=== PATIENT | male | born 1955 | race Caucasian/White ===

== ENCOUNTER 2017-10-04 06:15 | Inpatient (IN) | payer MEDICARE ==
[~2017-10-04] VITALS: Ht 165.1 cm; Wt 150.2 kg
[2017-10-04] VITALS (7 sets, daily range): BP systolic 133–190; BP diastolic 65–103; PULSE 68–115; RESP 16–20; TEMP 97.3–98.1; O2SAT 92–97
[~2017-10-04 06:15] MED LIST: AMLO10 PO; ATOR40TA16 PO; BUSP15TA PO; FERR325T PO; FURO1TAB62 PO; LISI40TA PO; METF500T PO; MULT-207 PO; TRAM50TA PO; TRAZ100T4 PO
[2017-10-04] MEDS ORDERED: SODIUM CHLORIDE 0.9% FLUSH 10 ML FLUSH IV FLUSH PRN ×2 (07:15→13:45)
[2017-10-04] MEDS ORDERED: ONDANSETRON HCL 4 MG/2 ML VIAL IVP ONE (07:15)
[2017-10-04 07:34] LABS: AUTOMATED NEUTROPHIL # 5.9 TH/MM3 (1.8-7.7); BASOPHIL # 0.1 TH/MM3 (0-0.2); BASOPHIL % 0.9 % (0.0-2.0); EOSINOPHIL # 0.2 TH/MM3 (0-0.4); EOSINOPHIL % 1.8 % (0.0-4.0); HEMATOCRIT 42.3 % (39.0-51.0); HEMOGLOBIN 13.7 GM/DL (13.0-17.0); LYMPH % 26.4 % (9.0-44.0); LYMPHOCYTE # 2.5 TH/MM3 (1.0-4.8); MEAN CELL VOLUME 80.9 FL (80.0-100.0); MEAN CORPUSCULAR HEMOGLOBIN 26.1 PG (27.0-34.0); MEAN CORPUSCULAR HGB CONC 32.3 % (32.0-36.0); MEAN PLATELET VOLUME 8.1 FL (7.0-11.0); MONO % 9.2 % (0.0-8.0); MONOCYTE # 0.9 TH/MM3 (0-0.9); NEUT % 61.7 % (16.0-70.0); PLATELET COUNT 250 TH/MM3 (150-450); RED BLOOD COUNT 5.23 MIL/MM3 (4.50-5.90); RED CELL DISTRIBUTION WIDTH 16.2 % (11.6-17.2); WHITE BLOOD COUNT 9.5 TH/MM3 (4.0-11.0)
--- NOTE | 2017-10-04 07:36 | PD ---
HPI Chief Complaint: Flank/Kidney Pain Time Seen by Provider: 07:07 Travel History International Travel<30 days: No Contact w/Intl Traveler<30days: No Traveled to known affect area: No History of Present Illness HPI This patient complains of pain in the right lower quadrant and right flank. Started at 3 AM. Duration is 4 hours. Severity is moderate. He has some nausea but no vomiting or diarrhea or fever. He is standing up in the room because it is hard for him to get comfortable. He feels restless. Patient has history of cholecystectomy and gastric bypass. No alleviating factors. No exacerbating factors. PFSH Past Medical History Arthritis: Yes Asthma: No Autoimmune Disease: No Blood Disorders: No Anxiety: Yes Depression: Yes Heart Rhythm Problems: No Cancer: Yes (KIDNEY) Cardiovascular Problems: Yes High Cholesterol: Yes Chemotherapy: No Chest Pain: No Congestive Heart Failure: No COPD: No Cerebrovascular Accident: No Diabetes: Yes Patient Takes Glucophage: Yes Diminished Hearing: No Endocrine: No Gastrointestinal Disorders: Yes GERD: Yes Glaucoma: No Genitourinary: Yes (KIDNEY CANCER - LEFT REMOVAL) Headaches: No Hepatitis: No Hiatal Hernia: No Hypertension: Yes Immune Disorder: Yes (RHEUMATOID ARTHRITIS) Implanted Vascular Access Dvce: Yes Kidney Stones: No Musculoskeletal: Yes (OA; AND RHEUMATOID) Neurologic: Yes Psychiatric: Yes Reproductive: No Respiratory: No Migraines: No Myocardial Infarction: No Pneumonia: Yes Radiation Therapy: No Renal Failure: No Seizures: No Sickle Cell Disease: No Sleep Apnea: Yes Thyroid Disease: No Ulcer: No Past Surgical History Abdominal Surgery: Yes (BYPASS-GASTRIC ; 1983 [facility]) AICD: No Appendectomy: No Arteriovenous Shunt: No Cardiac Surgery: No Cholecystectomy: Yes Ear Surgery: No Endocrine Surgery: No Eye Surgery: No Genitourinary Surgery: Yes (LEFT NEPHRECTOMY) Insulin Pump: No Joint Replacement: Yes (LEFT TOTAL KNEE;RIGHT TOTAL KNEE REPLACEMENT) Neurologic Surgery: No Oral Surgery: No Pacemaker: No Thoracic Surgery: No Other Surgery: Yes (left kidney removed,right carpal tunnel-RIGHT) Social History Alcohol Use: No Tobacco Use: No Substance Use: No Allergies-Medications (Allergen,Severity, Reaction): Coded Allergies: daptomycin (Unverified Allergy, Unknown, 10/04/17) Uncoded Allergies: deptamycin (Allergy, Severe, 05/30/11) Reported Meds & Prescriptions Reported Meds & Active Scripts Active Reported Tramadol (Tramadol HCl) 50 Mg Tab 50 Mg PO Q4H PRN Trazodone (Trazodone HCl) 100 Mg Tab 100 Mg PO HS Metformin (Metformin HCl) 500 Mg Tab 500 Mg PO BIDPC With meals Lisinopril 40 Mg Tab 40 Mg PO DAILY Lasix (Furosemide) 20 Mg Tab 20 Mg PO BID Buspirone (Buspirone HCl) 15 Mg Tab 15 Mg PO BID Ferrous Sulfate 325 Mg Tab 325 Mg PO TWICEAWEEK Atorvastatin (Atorvastatin Calcium) 40 Mg Tab 40 Mg PO HS One Daily (Multiple Vitamin) 1 Tab 1 Tab PO DAILY Norvasc (Amlodipine Besylate) 10 Mg Tab 10 Mg PO DAILY Review of Systems General / Constitutional: No: Fever Eyes: No: Visual changes HENT: No: Headaches Cardiovascular: No: Chest Pain or Discomfort Respiratory: No: Shortness of Breath Gastrointestinal: Positive: Nausea, Abdominal Pain Genitourinary: Positive: Flank Pain, No: Dysuria Musculoskeletal: No: Pain Skin: No Rash Neurologic: No: Weakness Psychiatric: No: Depression Endocrine: No: Polydipsia Hematologic/Lymphatic: No: Easy Bruising Physical Exam Narrative GENERAL: Morbidly obese well-developed patient with right flank and right lower quadrant pain. SKIN: Focused skin assessment reveals no rash and nodules. Skin is Warm and dry. HEAD: Atraumatic. Normocephalic. EYES: Pupils equal and round. No scleral icterus. No injection or drainage. ENT: No nasal bleeding or discharge. Mucous membranes pink and moist. NECK: Trachea midline. No JVD. CARDIOVASCULAR: Regular rate and rhythm. No murmur appreciated. RESPIRATORY: No accessory muscle use. Clear to auscultation. Breath sounds equal bilaterally. GASTROINTESTINAL: Abdomen soft, mild right lower quadrant tenderness without rebound or guarding, nondistended. Hepatic and splenic margins not palpable. MUSCULOSKELETAL: Has an ulcer on the back of his right lower leg, chronic per patient. He has erythema and hyperpigmentation stasis in that area. Bilateral knee replacement scars. No clubbing. No cyanosis. NEUROLOGICAL: Awake and alert. No obvious cranial nerve deficits. Motor grossly within normal limits. Normal speech. PSYCHIATRIC: Appropriate mood and affect; insight and judgment normal. Data Data Last Documented VS Vital Signs Date Time Temp Pulse Resp B/P (MAP) Pulse Ox O2 Delivery O2 Flow Rate FiO2 10/04/17 13:06 17 10/04/17 11:13 68 141/92 (108) 96 Room Air 10/04/17 06:18 97.3 Orders Orders Complete Blood Count With Diff (10/04/17 07:07) Comprehensive Metabolic Panel (10/04/17 07:07) Prothrombin Time / Inr (Pt) (10/04/17 07:07) Act Partial Throm Time (Ptt) (10/04/17 07:07) Urinalysis - C+S If Indicated (10/04/17 07:07) Ct Abd/Pel W Iv Contrast(Rout) (10/04/17 07:07) Iv Access Insert/Monitor (10/04/17 07:07) NPO (10/04/17 07:07) Ondansetron Inj (Zofran Inj) (10/04/17 07:15) Sodium Chloride 0.9% Flush (Ns Flush) (10/04/17 07:15) Iodixanol 320 Inj (Rad Ct) (Visipaque 32 (10/04/17 08:37) Morphine Inj (Morphine Inj) (10/04/17 11:15) Labs Laboratory Tests Test 10/04/17 07:19 10/04/17 11:16 White Blood Count 9.5 TH/MM3 Red Blood Count 5.23 MIL/MM3 Hemoglobin 13.7 GM/DL Hematocrit 42.3 % Mean Corpuscular Volume 80.9 FL Mean Corpuscular Hemoglobin 26.1 PG Mean Corpuscular Hemoglobin Concent 32.3 % Red Cell Distribution Width 16.2 % Platelet Count 250 TH/MM3 Mean Platelet Volume 8.1 FL Neutrophils (%) (Auto) 61.7 % Lymphocytes (%) (Auto) 26.4 % Monocytes (%) (Auto) 9.2 % Eosinophils (%) (Auto) 1.8 % Basophils (%) (Auto) 0.9 % Neutrophils # (Auto) 5.9 TH/MM3 Lymphocytes # (Auto) 2.5 TH/MM3 Monocytes # (Auto) 0.9 TH/MM3 Eosinophils # (Auto) 0.2 TH/MM3 Basophils # (Auto) 0.1 TH/MM3 CBC Comment DIFF FINAL Differential Comment Prothrombin Time 9.7 SEC Prothromb Time International Ratio 1.0 RATIO Activated Partial Thromboplast Time 25.5 SEC Blood Urea Nitrogen 19 MG/DL Creatinine 1.28 MG/DL Random Glucose 106 MG/DL Total Protein 7.7 GM/DL Albumin 3.0 GM/DL Calcium Level 8.5 MG/DL Alkaline Phosphatase 145 U/L Aspartate Amino Transf (AST/SGOT) 19 U/L Alanine Aminotransferase (ALT/SGPT) 24 U/L Total Bilirubin 0.5 MG/DL Sodium Level 137 MEQ/L Potassium Level 4.0 MEQ/L Chloride Level 103 MEQ/L Carbon Dioxide Level 27.1 MEQ/L Anion Gap 7 MEQ/L Estimat Glomerular Filtration Rate 57 ML/MIN MDM Medical Decision Making Medical Screen Exam Complete: Yes Emergency Medical Condition: Yes Medical Record Reviewed: Yes Differential Diagnosis Kidney stone, appendicitis, colitis Narrative Course I have reviewed the patient's electronic medical record. Patient was last seen here in 2016. He has been admitted before for sepsis and hyperglycemia I have ordered a abdominal pain workup Gave him IV Zofran Labs are reviewed. He has some renal insufficiency with a GFR of 57 CT scan is reviewed. This patient has only one kidney on the right after left nephrectomy in [address] for renal cell carcinoma. CT shows a 9 mm right-sided stone with moderate hydronephrosis. There is also a enlarging cystic mass in the right kidney. Patient will require admission to attempt to preserve his remaining kidney I discussed with Dr. Narvaez who will be a employment consultant I reviewed with the [facility]ist who will admit Give the patient injection of morphine for symptom relief Diagnosis Primary Impression: Kidney stone on right side Additional Impressions: Solitary right kidney Hydronephrosis due to obstruction of ureter Renal mass, right Admitting Information Admitting Physician Requests: Admit Ted Johns MD Oct 04, 2017 07:36
[2017-10-04 07:45] LABS: PROTHROMBIN TIME - PATIENT 9.7 SEC (9.8-11.6)
[2017-10-04 08:06] LABS: ALT (GPT) 24 U/L (12-78)
[2017-10-04 08:07] LABS: AST (GOT) 19 U/L (15-37); BICARBONATE 27.1 MEQ/L (21.0-32.0); BLOOD UREA NITROGEN 19 MG/DL (7-18); CALCIUM 8.5 MG/DL (8.5-10.1); CHLORIDE 103 MEQ/L (98-107); CREATININE 1.28 MG/DL (0.60-1.30); GLOMERULAR FILTRATION RATE 57 ML/MIN (>89); GLUCOSE,RANDOM 106 MG/DL (74-106); SODIUM (NA) 137 MEQ/L (136-145)
[2017-10-04 08:08] LABS: ALKALINE PHOSPHATASE 145 U/L (45-117); TOTAL BILIRUBIN ADULT 0.5 MG/DL (0.2-1.0); TOTAL PROTEIN 7.7 GM/DL (6.4-8.2)
[2017-10-04] MEDS ORDERED: IODIXANOL 320 MG/ML 10 ML VIAL (for Rad CT) IVCONTRAST ONE (08:37)
--- NOTE | 2017-10-04 09:20 | RADRPT ---
EXAM DATE/TIME: 10/04/2017 08:29 [facility] COMPARISON: CT ABDOMEN & PELVIS W/O CONTRAST, June 16, 2016, 7:57. INDICATIONS : Right lower quadrant and right flank pain. IV CONTRAST: 50 cc Visipaque (iodixanol) IV ORAL CONTRAST: No oral contrast ingested. RADIATION DOSE: 22.52 CTDIvol (mGy) ; Patient body habitus MEDICAL HISTORY : Diabetes mellitus type 2. Renal cell carcinoma. Hypertension. SURGICAL HISTORY : Nephrectomy, left. Gastric bypass. Cholecystectomy. ENCOUNTER: Initial ACUITY: 1 day PAIN SCALE: 7/10 LOCATION: Right lower quadrant TECHNIQUE: Volumetric scanning of the abdomen and pelvis was performed. Using automated exposure control and ad justment of the mA and/or kV according to patient size, radiation dose was kept as low as reasonably achievable to obtain optimal diagnostic quality images. DICOM format image data is available electro nically for review and comparison. FINDINGS: LOWER LUNGS: There is a new 7 mm solid subpleural nodule in the left lung base. LIVER: Homogeneous density without lesion. There is no dilation of the biliary tree. Gallbladder is surgica lly absent. SPLEEN: Normal size without lesion. PANCREAS: Within normal limits. KIDNEYS: Patient status post left nephrectomy. No evidence for mass in the left nephrectomy bed. There is a 9 mm calcified calculus in the right UPJ with associated mild to moderate right-sided hydronephrosis wi th mild perinephric stranding. There is a second 4 mm calyceal calculus in the inferior pole of the r ight kidney. Previously described now measuring 6.9 x 5.9 cm in comparison to 6.0 x 4.8 cm. The cyst also demonstrates increased density, now indeterminate. A second lesion previously described arising from the superior pole of the right kidney appears smaller on current exam measuring 2.9 x 2.5 cm in comparison to 3.1 x 3.5 cm on previous exam. Again, this lesion demonstrates indeterminate density. O n coronal reconstructions there appears to be a fat plane this lesion from the superior po le the right kidney suggesting that this lesion is extra renal. There is also a subtle contour abnorm ality in the inferior pole the right kidney with which may reflect an isoechoic exophytic lesion. Sub centimeter hypodense cystic lesion in the inferior pole is too small to fully characterize. ADRENAL GLANDS: 1.4 cm nodule in the left adrenal gland unchanged from prior exam with low-density consistent with sm all adenoma. VASCULAR: There is no aortic aneurysm. BOWEL/MESENTERY: Position of features of gastric sleeve. The small bowel, and colon demonstrate no acute abnormality. Appendix is visualized and normal in appearance. There is no free intraperitoneal air or fluid. ABDOMINAL WALL: There is a 1.8 x 16.8 cm crescentic hypodense anterior abdominal wall collection on the left. This co rresponds to region of prior apparent soft tissue hemorrhage and likely reflects evolving hematoma. RETROPERITONEUM: Scattered small retroperitoneal nodes measuring up to 1.4 cm distally are stable from prior exam. The re are also bilateral iliac chain nodes predominantly subcentimeter in size which are unchanged from prior exam. BLADDER: Completely decompressed. No significant radiopaque bladder calculi. REPRODUCTIVE: Within normal limits. INGUINAL: There is no lymphadenopathy or hernia. MUSCULOSKELETAL: Degenerative spondylosis of the lumbar spine. No significant focal lytic or blastic bony lesions. CONCLUSION: 1. Status post left nephrectomy. 2. 9 mm calcified calculus in the right UPJ with associated mild to moderate right-sided hydronephros is. Additional 3 mm calyceal calculus in the inferior pole of the right kidney. 3. New 7 mm solid subpleural nodule in the left lung base. Recommend followup examination in 3 months document stability/resolution given apparent history of renal cell carcinoma. 4. Enlarging cystic lesion in the mid right kidney which is now indeterminate density (previously fl uid in density). This may reflect sequela of current obstructive uropathy although an enlarging cysti c mass cannot be entirely excluded. Although a followup scan may be performed to determine if this le pa has returned to baseline, consider outpatient MRI exam given additional findings in the right ki dney. 5. Subtle contour abnormality in the inferior pole of the right kidney which cannot be further evalua roman given lack of IV contrast. Although this likely reflects a simple contour abnormality, an isodens e exophytic lesion cannot be entirely excluded. If this has not been previously evaluated, consider f urther outpatient evaluation with MRI exam. 6. Previously described indeterminate lesion near the superior pole of the right kidney is smaller in size and appears to be separate from the right kidney on coronal reconstructions. This can be furthe r evaluated with MRI examination if performed for evaluation of the additional abnormalities in the r ight kidney. 7. Stable nonspecific small retroperitoneal and bilateral iliac lymph nodes. 8. Probable evolving hematoma in the left anterior abdominal wall. 9. Additional stable ancillary findings, as above. Ricci Deal MD on October 04, 2017 at 8:53 Board Certified Radiologist. This report was verified electronically.
[2017-10-04] MEDS ORDERED: MORPHINE SULFATE 4 MG/ML INJ IV PUSH ONE (11:15)
[2017-10-04] MEDS ORDERED: ONDANSETRON HCL 4 MG/2 ML VIAL IVP PRN (13:45)
[2017-10-04] MEDS ORDERED: ACETAMINOPHEN 325 MG TAB PO PRN (13:45)
[2017-10-04] MEDS ORDERED: NALOXONE HCL 0.4 MG/ML AMP IV PUSH PRN (13:45)
[2017-10-04] MEDS ORDERED: MAGNESIUM HYDROXIDE SUSP 30 ML CUP PO PRN (13:45)
--- NOTE | 2017-10-04 14:02 | HHI.HP ---
HPI Service [facility] Hospitalists Primary Care Physician Pedro Bautista M.D. Admission Diagnosis renal calculus R UPJ and right hydronephrosis Chief Complaint: flank pain Travel History International Travel<30 Days: No Contact w/Intl Traveler <30 Da: No Traveled to Known Affected Are: No History of Present Illness This is a 62 year old male patient with a past medical history which includes HTN, hyperlipidemia, DM, depression/anxiety, GERD, BPH, Left nephrectomy 1994 due to renal Ca. Patient presents to the ER today due to severe right lower quadrant and right flank which started at 3 AM and continues. Patient also had associated nausea but no vomiting. Patient is restless standing up pacing about the room due to his discomfort. Patient reports that he has never had a kidney stone in the past. Patient has also been unable to pass urine since this morning. Patient denies chest pain, shortness of breath, vomiting, diarrhea fevers or chills. CT abdomen/pelvic reveals: left nephrectomy. 9 mm calcified calculus in the Right UPJ with associated mild to moderate right sided hydronephrosis. 3 mm calyceal calculus in the inferior pole of the right kidney. New 7 mm solid subpleural nodule in the left lung base. Recommend repeat exam in 3 month. Enlarging cystic lesion in the mid right kidney. Recommend follow up scan/ outpatient MRI. Subtle contour abnormality in the inferior pole of the right kidney. Probable evolving hematoma left anterior abd wall. See full report for further details. Review of Systems Constitutional: DENIES: Fatigue, Fever, Chills Eyes: DENIES: Blurred vision, Diplopia, Photosensitivity Respiratory: DENIES: Cough, Sputum production, Shortness of breath Cardiovascular: DENIES: Chest pain, Palpitations, Dyspnea on Exertion Gastrointestinal: COMPLAINS OF: Abdominal pain (right lower quadrant), Nausea, DENIES: Constipation, Diarrhea, Vomiting Musculoskeletal: COMPLAINS OF: Back pain (right flank pain) Neurologic: DENIES: Headache, Localized weakness, Speech Problems Psychiatric: DENIES: Anxiety, Confusion, Depression Past Family Social History Past Medical History HTN, hyperlipidemia, DM, depression/anxiety, GERD, BPH, Left nephrectomy 1994 due to renal Ca Past Surgical History Left nephrectomy 1994 due to renal Ca right knee replacement x 5 [place] gastric bypass surgery mid cholecystectomy back surgery Reported Medications Zantac (Ranitidine HCl) 150 Mg Tab 150 Mg PO DAILY Restoril (Temazepam) 7.5 Mg Cap 7.5 Mg PO HS PRN Triamterene-Hydrochlorothiazide 37.5-25 Mg Cap 1 Cap PO DAILY Sertraline (Sertraline HCl) 50 Mg Tab 50 Mg PO DAILY Trazodone (Trazodone HCl) 100 Mg Tab 100 Mg PO HS Metformin (Metformin HCl) 500 Mg Tab 500 Mg PO BIDPC With meals Lisinopril 40 Mg Tab 40 Mg PO DAILY Buspirone (Buspirone HCl) 15 Mg Tab 15 Mg PO BID Ferrous Sulfate 325 Mg Tab 325 Mg PO TWICEAWEEK Atorvastatin (Atorvastatin Calcium) 40 Mg Tab 40 Mg PO HS One Daily (Multiple Vitamin) 1 Tab 1 Tab PO DAILY Norvasc (Amlodipine Besylate) 10 Mg Tab 10 Mg PO DAILY Allergies: Coded Allergies: daptomycin (Unverified Allergy, Unknown, 10/04/17) Uncoded Allergies: deptamycin (Allergy, Severe, 05/30/11) Family History Family medical history unknown patient is adopted Social History former tobacco user 1.5 PPD x 30 + years quit in 1994 Physical Exam Vital Signs Vital Signs Date Time Temp Pulse Resp B/P (MAP) Pulse Ox O2 Delivery O2 Flow Rate FiO2 10/04/17 13:06 17 10/04/17 11:13 68 17 141/92 (108) 96 Room Air 10/04/17 06:18 97.3 74 18 133/67 (89) 97 Physical Exam GENERAL: This is an obese, well-developed patient, appears uncomfortable pacing about room SKIN: posterior right ankle chronic ulcerations HEAD: Atraumatic. Normocephalic. No temporal or scalp tenderness. EYES: Extraocular motions intact. No scleral icterus. No injection or drainage. CARDIOVASCULAR: Regular rate and rhythm RESPIRATORY: Clear to auscultation. Breath sounds equal bilaterally. GASTROINTESTINAL: Abdomen soft, non-tender, nondistended. GENITOURINARY: right flank pain very tender MUSCULOSKELETAL: Extremities without clubbing, cyanosis, or edema. No joint tenderness, effusion, or edema noted. No calf tenderness. Negative Homans sign bilaterally. NEUROLOGICAL: Awake and alert. No focal deficits. Motor and sensory grossly within normal limits. Five out of 5 muscle strength in all muscle groups. Normal speech. Laboratory Laboratory Tests Test 10/04/17 07:19 4/3/18 11:16 White Blood Count 9.5 Red Blood Count 5.23 Hemoglobin 13.7 Hematocrit 42.3 Mean Corpuscular Volume 80.9 Mean Corpuscular Hemoglobin 26.1 Mean Corpuscular Hemoglobin Concent 32.3 Red Cell Distribution Width 16.2 Platelet Count 250 Mean Platelet Volume 8.1 Neutrophils (%) (Auto) 61.7 Lymphocytes (%) (Auto) 26.4 Monocytes (%) (Auto) 9.2 Eosinophils (%) (Auto) 1.8 Basophils (%) (Auto) 0.9 Neutrophils # (Auto) 5.9 Lymphocytes # (Auto) 2.5 Monocytes # (Auto) 0.9 Eosinophils # (Auto) 0.2 Basophils # (Auto) 0.1 CBC Comment DIFF FINAL Differential Comment Prothrombin Time 9.7 Prothromb Time International Ratio 1.0 Activated Partial Thromboplast Time 25.5 Blood Urea Nitrogen 19 Creatinine 1.28 Random Glucose 106 Total Protein 7.7 Albumin 3.0 Calcium Level 8.5 Alkaline Phosphatase 145 Aspartate Amino Transf (AST/SGOT) 19 Alanine Aminotransferase (ALT/SGPT) 24 Total Bilirubin 0.5 Sodium Level 137 Potassium Level 4.0 Chloride Level 103 Carbon Dioxide Level 27.1 Anion Gap 7 Estimat Glomerular Filtration Rate 57 Result Diagram: 10/04/17 0719 10/04/17 0719 Imaging Last Impressions Abdomen/Pelvis CT 10/04/1707 Signed Impressions: Service Date/Time: Wednesday, October 04, 2017 08:29 - CONCLUSION: 1. Status post left nephrectomy. 2. 9 mm calcified calculus in the right UPJ with associated mild to moderate right-sided hydronephrosis. Additional 3 mm calyceal calculus in the inferior pole of the right kidney. 3. New 7 mm solid subpleural nodule in the left lung base. Recommend followup examination in 3 months document stability/resolution given apparent history of renal cell carcinoma. 4. Enlarging cystic lesion in the mid right kidney which is now indeterminate density (previously fluid in density). This may reflect sequela of current obstructive uropathy although an enlarging cystic mass cannot be entirely excluded. Although a followup scan may be performed to determine if this lesion has returned to baseline, consider outpatient MRI exam given additional findings in the right kidney. 5. Subtle contour abnormality in the inferior pole of the right kidney which cannot be further evaluated given lack of IV contrast. Although this likely reflects a simple contour abnormality, an isodense exophytic lesion cannot be entirely excluded. If this has not been previously evaluated, consider further outpatient evaluation with MRI exam. 6. Previously described indeterminate lesion near the superior pole of the right kidney is smaller in size and appears to be separate from the right kidney on coronal reconstructions. This can be further evaluated with MRI examination if performed for evaluation of the additional abnormalities in the right kidney. 7. Stable nonspecific small retroperitoneal and bilateral iliac lymph nodes. 8. Probable evolving hematoma in the left anterior abdominal wall. 9. Additional stable ancillary findings, as above. MD Jose Leonard VTE Risk Assessment Caprini VTE Risk Assessment: No/Low Risk (score <= 1) Caprini Risk Assessment Model Point Value = 1 Point Value = 2 Point Value = 3 Point Value = 5 Age 41-60 Minor surgery BMI > 25 kg/m2 Swollen legs Varicose veins or History of unexplained or recurrent spontaneous Oral contraceptives or hormone replacement Sepsis (< 1 month) Serious lung disease, including pneumonia (< 1 month) Abnormal pulmonary function Acute myocardial infarction Congestive heart failure (< 1 month) History of inflammatory bowel disease Medical patient at bed rest Age 61-74 Arthroscopic surgery Major open surgery (> 45 min) Laparoscopic surgery (> 45 min) Malignancy Confined to bed (> 72 hours) Immobilizing plaster cast Central venous access Age >= 75 History of VTE Family history of VTE Factor V Leiden Prothrombin [id number] Lupus anticoagulant Anticardiolipin antibodies Elevated serum homocysteine Heparin-induced thrombocytopenia Other congenital or acquired thrombophilia Stroke (< 1 month) Elective arthroplasty Hip, pelvis, or leg fracture Acute spinal cord injury (< 1 month) Prophylaxis Regimen Total Risk Factor Score Risk Level Prophylaxis Regimen 0-1 Low Early ambulation 2 Moderate Order ONE of the following: *Sequential Compression Device (SCD) *Heparin 5000 units SQ BID 3-4 Higher Order ONE of the following medications: *Heparin 5000 units SQ TID *Enoxaparin/Lovenox 40 mg SQ daily (WT < 150 kg, CrCl > 30 mL/min) *Enoxaparin/Lovenox 30 mg SQ daily (WT < 150 kg, CrCl > 10-29 mL/min) *Enoxaparin/Lovenox 30 mg SQ BID (WT < 150 kg, CrCl > 30 mL/min) AND/OR *Sequential Compression Device (SCD) 5 or more Highest Order ONE of the following medications: *Heparin 5000 units SQ TID (Preferred with Epidurals) *Enoxaparin/Lovenox 40 mg SQ daily (WT < 150 kg, CrCl > 30 mL/min) *Enoxaparin/Lovenox 30 mg SQ daily (WT < 150 kg, CrCl > 10-29 mL/min) *Enoxaparin/Lovenox 30 mg SQ BID (WT < 150 kg, CrCl > 30 mL/min) AND *Sequential Compression Device (SCD) Assessment and Plan Problem List: (1) Renal calculus ICD Codes: N20.0 - Calculus of kidney Plan: Renal calculus hydronephrosis HTN, hyperlipidemia, DM, depression/anxiety, GERD, BPH, Left nephrectomy 1994 due to renal Ca. Patient presents to the ER today due to severe right lower quadrant and right flank which started at [address] abdomen/pelvic reveals: left nephrectomy. 9 mm calcified calculus in the Right UPJ with associated mild to moderate right sided hydronephrosis. 3 mm calyceal calculus in the inferior pole of the right kidney. New 7 mm solid subpleural nodule in the left lung base. Recommend repeat exam in 3 month. Enlarging cystic lesion in the mid right kidney. Recommend follow up scan/ outpatient MRI. Subtle contour abnormality in the inferior pole of the right kidney. Probable evolving hematoma left anterior abd wall. See full report for further details. Dilaudid for pain Flomax 0.4 mg PO Q12H consult placed to Urology, patient evaluated by Dr. Narvaez surgical intervention planned for clear liquid diet NPO after midnight incase OR opens IVF Mosley catheter repeat labs in AM HTN Continue patient's home lisinopril 40 mg PO daily and Norvasc 10 mg daily Hyperlipidemia Continue patient's home atorvastatin Diabetes mellitus hold metformin accu checks ACHS with SSI coverage Anxiety/depression Continue patient's home sertraline 50 mg PO daily and Buspirone 15 mg daily DVT prophylaxis with SCDs (2) Hydronephrosis due to obstruction of ureter ICD Codes: N13.2 - Hydronephrosis with renal and ureteral calculous obstruction Status: Acute (3) Hyperlipidemia ICD Codes: E78.5 - Hyperlipidemia, unspecified Status: Chronic (4) HTN (hypertension) ICD Codes: I10 - Essential (primary) hypertension Status: Chronic (5) Diabetes mellitus ICD Codes: E11.9 - Type 2 diabetes mellitus without complications Assessment and Plan Patient examined. Assessment and plan formulated with Shauna Robles PA-C. I agree with the above. right nephrolithiasis 9mm with hydro and severe pain hx left nephrectomy due to RCC spoke with Dr Brice zhang. no OR time until . cont ivf. pain control. flomax. monitor u.o. avoid nsaids. Physician Certification 2 Midnight Certification Type: Admission for Inpatient Services Order for Inpatient Services The services are ordered in accordance with Medicare regulations or non- Medicare payer requirements, as applicable. In the case of services not specified as inpatient-only, they are appropriately provided as inpatient services in accordance with the 2-midnight benchmark. Estimated LOS (days): 3 days is the estimated time the patient will need to remain in the hospital, assuming treatment plan goals are met and no additional complications. Post-Hospital Plan: Home Shauna Robles Oct 04, 2017 14:02 Fredi Crawford MD Oct 04, 2017 16:28
[2017-10-04] MEDS ORDERED: SERT-132 PO (14:09)
[2017-10-04] MEDS ORDERED: TRIA37.53 PO (14:10)
[2017-10-04] MEDS ORDERED: TEMA7.5C9 PO (14:11)
[2017-10-04] MEDS ORDERED: ZANT150T2 PO (14:12)
[2017-10-04] MEDS ORDERED: GLUCAGON 1 MG/ML VIAL OTHER PRN (14:15)
[2017-10-04] MEDS ORDERED: DEXTROSE 50% IN WATER 50 ML VIAL(D50) IV PUSH PRN (14:15)
[2017-10-04] MEDS: SODIUM CHLOR 0.9% 1000 ML INJ 1,000 ML IV SCH (14:32)
[2017-10-04] MEDS ORDERED: HYDROmorphone HCL PF 2 MG/ML VIAL IV PUSH ONE (15:45)
[2017-10-04] MEDS ORDERED: cloNIDine HCL 0.1 MG TAB PO PRN ×2 (16:15→20:00)
[2017-10-04] MEDS: TAMSULOSIN HCL 0.4 MG CAP PO SCH ×2 (16:23→20:51)
[2017-10-04] MEDS: INSULIN ASPART SUPPLEMENTAL SCALE SQ SCH ×2 (17:00→20:50)
--- NOTE | 2017-10-04 17:16 | PD.CONS ---
HPI Service Urology Consult Requested By Dr. Johns Reason for Consult Right ureteral calculus Primary Care Physician Pedro Bautista M.D. Diagnosis: (1) Renal calculus ICD Code: N20.0 - Calculus of kidney (2) Hydronephrosis due to obstruction of ureter ICD Code: N13.2 - Hydronephrosis with renal and ureteral calculous obstruction (3) Hyperlipidemia ICD Code: E78.5 - Hyperlipidemia, unspecified (4) HTN (hypertension) ICD Code: I10 - Essential (primary) hypertension (5) Diabetes mellitus ICD Code: E11.9 - Type 2 diabetes mellitus without complications History of Present Illness 62-year-old gentleman with history solitary right kidney who presented to emergency room with acute onset of right flank pain. Workup included a CT scan of the abdomen and pelvis that demonstrated a 9 mm right occipital ureteral calculus causing moderate right hydronephrosis. Patient is status post a left radical nephrectomy greater than 20 years ago for cancer. He reports not seeing a urologist for quite some time. He denies a prior history of renal calculi. He denies gross hematuria or dysuria. Patient has been afebrile. Review of Systems Constitutional: DENIES: Fever, Chills Cardiovascular: DENIES: Chest pain Gastrointestinal: COMPLAINS OF: Abdominal pain (Right side) Genitourinary: DENIES: Hematuria Musculoskeletal: COMPLAINS OF: Back pain (Right flank) Except as stated in HPI: all other systems reviewed are Neg Past Family Social History Past Medical History Obesity Anxiety Renal cancer Diabetes mellitus Rheumatoid arthritis Obstructive sleep apnea History pneumonia Past Surgical History Status post left radical nephrectomy for CA Status post gastric bypass surgery Status post cholecystectomy Status post left and right total knee surgery Reported Medications Refer to EMR Allergies: Coded Allergies: daptomycin (Unverified Allergy, Unknown, 10/04/17) Uncoded Allergies: deptamycin (Allergy, Severe, 05/30/11) Active Ordered Medications Refer to EMR Family History Reviewed and noncontributory Social History Denies tobacco, alcohol intravenous drug abuse Physical Exam Vital Signs Date Time Temp Pulse Resp B/P (MAP) Pulse Ox O2 Delivery O2 Flow Rate FiO2 10/04/17 17:04 90 18 190/91 (124) 94 Nasal Cannula 2.00 10/04/17 15:32 90 18 190/85 (120) 94 Room Air 10/04/17 13:06 17 10/04/17 11:13 68 17 141/92 (108) 96 Room Air 10/04/17 06:18 97.3 74 18 133/67 (89) 97 Physical Exam GENERAL: This is a well-nourished, well-developed patient, in no apparent distress. SKIN: No rashes, ecchymoses or lesions. Cool and dry. HEAD: Atraumatic. Normocephalic. No temporal or scalp tenderness. EYES: Pupils equal round and reactive. Extraocular motions intact. No scleral icterus. No injection or drainage. ENT: Nose without bleeding, purulent drainage or septal hematoma. Throat without erythema, tonsillar hypertrophy or exudate. Uvula midline. Airway patent. NECK: Trachea midline. No JVD or lymphadenopathy. Supple, nontender, no meningeal signs. CARDIOVASCULAR: Regular rate and rhythm without murmurs, gallops, or rubs. RESPIRATORY: Clear to auscultation. Breath sounds equal bilaterally. No wheezes , rales, or rhonchi. GASTROINTESTINAL: Abdomen soft, non-tender, nondistended. No hepato-splenomegaly , or palpable masses. No guarding. GENITOURINARY: Bladder not distended, no CVA tenderness MUSCULOSKELETAL: Extremities without clubbing, cyanosis, or edema. No joint tenderness, effusion, or edema noted. No calf tenderness. Negative Homans sign bilaterally. NEUROLOGICAL: Awake and alert. Cranial nerves II through XII intact. Motor and sensory grossly within normal limits. Five out of 5 muscle strength in all muscle groups. Normal speech. Lab results reviewed: Yes Laboratory Tests Test 10/04/17 07:19 10/04/17 11:16 White Blood Count 9.5 Red Blood Count 5.23 Hemoglobin 13.7 Hematocrit 42.3 Mean Corpuscular Volume 80.9 Mean Corpuscular Hemoglobin 26.1 Mean Corpuscular Hemoglobin Concent 32.3 Red Cell Distribution Width 16.2 Platelet Count 250 Mean Platelet Volume 8.1 Neutrophils (%) (Auto) 61.7 Lymphocytes (%) (Auto) 26.4 Monocytes (%) (Auto) 9.2 Eosinophils (%) (Auto) 1.8 Basophils (%) (Auto) 0.9 Neutrophils # (Auto) 5.9 Lymphocytes # (Auto) 2.5 Monocytes # (Auto) 0.9 Eosinophils # (Auto) 0.2 Basophils # (Auto) 0.1 CBC Comment DIFF FINAL Differential Comment Prothrombin Time 9.7 Prothromb Time International Ratio 1.0 Activated Partial Thromboplast Time 25.5 Blood Urea Nitrogen 19 Creatinine 1.28 Random Glucose 106 Total Protein 7.7 Albumin 3.0 Calcium Level 8.5 Alkaline Phosphatase 145 Aspartate Amino Transf (AST/SGOT) 19 Alanine Aminotransferase (ALT/SGPT) 24 Total Bilirubin 0.5 Sodium Level 137 Potassium Level 4.0 Chloride Level 103 Carbon Dioxide Level 27.1 Anion Gap 7 Estimat Glomerular Filtration Rate 57 Result Diagram: 10/04/17 0719 10/04/1719 Personally reviewed images: Yes Imaging Last Impressions Abdomen/Pelvis CT 10/04/17706 Signed Impressions: Service Date/Time: Wednesday, October 04, 2017 08:29 - CONCLUSION: 1. Status post left nephrectomy. 2. 9 mm calcified calculus in the right UPJ with associated mild to moderate right-sided hydronephrosis. Additional 3 mm calyceal calculus in the inferior pole of the right kidney. 3. New 7 mm solid subpleural nodule in the left lung base. Recommend followup examination in 3 months document stability/resolution given apparent history of renal cell carcinoma. 4. Enlarging cystic lesion in the mid right kidney which is now indeterminate density (previously fluid in density). This may reflect sequela of current obstructive uropathy although an enlarging cystic mass cannot be entirely excluded. Although a followup scan may be performed to determine if this lesion has returned to baseline, consider outpatient MRI exam given additional findings in the right kidney. 5. Subtle contour abnormality in the inferior pole of the right kidney which cannot be further evaluated given lack of IV contrast. Although this likely reflects a simple contour abnormality, an isodense exophytic lesion cannot be entirely excluded. If this has not been previously evaluated, consider further outpatient evaluation with MRI exam. 6. Previously described indeterminate lesion near the superior pole of the right kidney is smaller in size and appears to be separate from the right kidney on coronal reconstructions. This can be further evaluated with MRI examination if performed for evaluation of the additional abnormalities in the right kidney. 7. Stable nonspecific small retroperitoneal and bilateral iliac lymph nodes. 8. Probable evolving hematoma in the left anterior abdominal wall. 9. Additional stable ancillary findings, as above. Ricci Deal MD Assessment and Plan Assessment and Plan UROLOGIC IMPRESSION: 1. Obstructing 9mm right ureteropelvic junction calculus 2. Solitary right kidney 3. 3mm right renal calculus 4. Right renal cyst PLAN: 1. Cysto, right retrograde pyelogram and right ureteral stent insertion tomorrow or Thurs 2. Will eventually require outpatient right ESWL 3. Outpatient MRI of the abdomen to better characterize right renal cyst Oscar Narvaez MD Oct 04, 2017 17:16
[2017-10-04] MEDS: busPIRone HCL 5 MG TAB PO SCH (20:51)
[2017-10-04] MEDS: DOCUSATE SODIUM 50 MG/SENNA 8.6 MG TAB PO SCH (20:51)
[2017-10-04] MEDS: SODIUM CHLORIDE 0.9% FLUSH 10 ML FLUSH IV FLUSH SCH (20:52)
[2017-10-04] MEDS: ATORVASTATIN 40 MG TAB PO SCH (20:52)
[2017-10-04] MEDS ORDERED: TEMAZEPAM 7.5 MG CAP PO PRN (21:00)
[2017-10-05] VITALS (7 sets, daily range): BP systolic 110–158; BP diastolic 58–86; PULSE 68–100; RESP 16–22; TEMP 97.4–98; O2SAT 92–96
[2017-10-05] MEDS: SODIUM CHLOR 0.9% 1000 ML INJ 1,000 ML IV SCH ×2 (01:21→22:00)
[2017-10-05 02:17] LABS: BILIRUBIN, URINE NEG (NEG); BLOOD, URINE LARGE (NEG); GLUCOSE,URINE TRACE mg/dL (NEG); KETONE, URINE NEG (NEG); NITRITE,URINE NEG (NEG); PH, URINE 5.5 (5.0-8.5); SQUAMOUS EPITHELIAL CELL URINE 3 /hpf (0-5); URINE LEUKOCYTE ESTERASE TRACE (NEG); WHITE BLOOD CELL CLUMPS MANY
[2017-10-05 02:23] LABS: URINE COLOR BROWN (YELLW/STRAW)
[2017-10-05 02:24] LABS: BACTERIA, URINE FEW /hpf
[2017-10-05 07:03] LABS: AUTOMATED NEUTROPHIL # 11.3 TH/MM3 (1.8-7.7); BASOPHIL # 0.1 TH/MM3 (0-0.2); BASOPHIL % 0.6 % (0.0-2.0); EOSINOPHIL % 0.3 % (0.0-4.0); HEMATOCRIT 40.6 % (39.0-51.0); HEMOGLOBIN 13.1 GM/DL (13.0-17.0); LYMPH % 8.3 % (9.0-44.0); LYMPHOCYTE # 1.2 TH/MM3 (1.0-4.8); MEAN CELL VOLUME 81.7 FL (80.0-100.0); MEAN CORPUSCULAR HEMOGLOBIN 26.3 PG (27.0-34.0); MEAN CORPUSCULAR HGB CONC 32.2 % (32.0-36.0); MEAN PLATELET VOLUME 8.3 FL (7.0-11.0); MONO % 10.5 % (0.0-8.0); MONOCYTE # 1.5 TH/MM3 (0-0.9); NEUT % 80.3 % (16.0-70.0); PLATELET COUNT 210 TH/MM3 (150-450); RED BLOOD COUNT 4.97 MIL/MM3 (4.50-5.90); RED CELL DISTRIBUTION WIDTH 16.1 % (11.6-17.2); WHITE BLOOD COUNT 14.1 TH/MM3 (4.0-11.0)
[2017-10-05 07:34] LABS: BICARBONATE 27.1 MEQ/L (21.0-32.0); CALCIUM 8.3 MG/DL (8.5-10.1); CREATININE 3.59 MG/DL (0.60-1.30)
[2017-10-05] MEDS: INSULIN ASPART SUPPLEMENTAL SCALE SQ SCH ×4 (08:21→21:00)
--- NOTE | 2017-10-05 08:43 | HHI.PR ---
Subjective Remarks Pt reports that he is still having abdominal pain but its rated at about a 4-5/ 10 He has only had out about 80mL of urine overnight Afebrile Pt is currently on 3-4L of supplemental O2 Denies any hx of COPD or asthma. He does have DL and does not use CPAP at home Objective Vitals Vital Signs Date Time Temp Pulse Resp B/P (MAP) Pulse Ox O2 Delivery O2 Flow Rate FiO2 10/05/17 07:33 97.9 90 18 136/79 (98) 95 10/05/17 04:30 97.4 68 16 158/86 (110) 92 10/05/17 00:07 97.9 79 16 120/67 (84) 94 10/04/17 20:43 97.7 68 16 142/96 (111) 92 10/04/17 18:35 98.1 115 20 179/103 (128) 92 10/04/17 17:43 10/04/17 17:28 92 17 149/65 (93) 95 Nasal Cannula 2.00 10/04/17 17:04 90 18 190/91 (124) 94 Nasal Cannula 2.00 10/04/17 15:32 90 18 190/85 (120) 94 Room Air 10/04/17 13:06 17 10/04/17 11:13 68 17 141/92 (108) 96 Room Air Result Diagram: 10/05/17 0608 10/05/17 0608 Other Results Laboratory Tests Test 10/04/17 07:19 10/04/17 11:16 10/05/17 06:08 White Blood Count 9.5 TH/MM3 14.1 TH/MM3 Red Blood Count 5.23 MIL/MM3 4.97 MIL/MM3 Hemoglobin 13.7 GM/DL 13.1 GM/DL Hematocrit 42.3 % 40.6 % Mean Corpuscular Volume 80.9 FL 81.7 FL Mean Corpuscular Hemoglobin 26.1 PG 26.3 PG Mean Corpuscular Hemoglobin Concent 32.3 % 32.2 % Red Cell Distribution Width 16.2 % 16.1 % Platelet Count 250 TH/MM3 210 TH/MM3 Mean Platelet Volume 8.1 FL 8.3 FL Neutrophils (%) (Auto) 61.7 % 80.3 % Lymphocytes (%) (Auto) 26.4 % 8.3 % Monocytes (%) (Auto) 9.2 % 10.5 % Eosinophils (%) (Auto) 1.8 % 0.3 % Basophils (%) (Auto) 0.9 % 0.6 % Neutrophils # (Auto) 5.9 TH/MM3 11.3 TH/MM3 Lymphocytes # (Auto) 2.5 TH/MM3 1.2 TH/MM3 Monocytes # (Auto) 0.9 TH/MM3 1.5 TH/MM3 Eosinophils # (Auto) 0.2 TH/MM3 0.0 TH/MM3 Basophils # (Auto) 0.1 TH/MM3 0.1 TH/MM3 CBC Comment DIFF FINAL DIFF FINAL Differential Comment Prothrombin Time 9.7 SEC Prothromb Time International Ratio 1.0 RATIO Activated Partial Thromboplast Time 25.5 SEC Blood Urea Nitrogen 19 MG/DL 29 MG/DL Creatinine 1.28 MG/DL 3.59 MG/DL Random Glucose 106 MG/DL 114 MG/DL Total Protein 7.7 GM/DL Albumin 3.0 GM/DL Calcium Level 8.5 MG/DL 8.3 MG/DL Alkaline Phosphatase 145 U/L Aspartate Amino Transf (AST/SGOT) 19 U/L Alanine Aminotransferase (ALT/SGPT) 24 U/L Total Bilirubin 0.5 MG/DL Sodium Level 137 MEQ/L 139 MEQ/L Potassium Level 4.0 MEQ/L 4.4 MEQ/L Chloride Level 103 MEQ/L 103 MEQ/L Carbon Dioxide Level 27.1 MEQ/L 27.1 MEQ/L Anion Gap 7 MEQ/L 9 MEQ/L Estimat Glomerular Filtration Rate 57 ML/MIN 17 ML/MIN Urine Color BROWN Urine Turbidity TURBID Urine pH 5.5 Urine Specific [place] 1.038 Urine Protein 100 mg/dL Urine Glucose (UA) TRACE mg/dL Urine Ketones NEG mg/dL Urine Occult Blood LARGE Urine Nitrite NEG Urine Bilirubin NEG Urine Urobilinogen 2.0 MG/DL Urine Leukocyte Esterase TRACE Urine RBC /hpf Urine WBC /hpf Urine WBC Clumps MANY Urine Squamous Epithelial Cells 3 /hpf Urine Bacteria FEW /hpf Microscopic Urinalysis Comment CULTURE INDICATED Imaging Last Impressions Abdomen/Pelvis CT 10/04/17 0707 Signed Impressions: Service Date/Time: Wednesday, October 04, 2017 08:29 - CONCLUSION: 1. Status post left nephrectomy. 2. 9 mm calcified calculus in the right UPJ with associated mild to moderate right-sided hydronephrosis. Additional 3 mm calyceal calculus in the inferior pole of the right kidney. 3. New 7 mm solid subpleural nodule in the left lung base. Recommend followup examination in 3 months document stability/resolution given apparent history of renal cell carcinoma. 4. Enlarging cystic lesion in the mid right kidney which is now indeterminate density (previously fluid in density). This may reflect sequela of current obstructive uropathy although an enlarging cystic mass cannot be entirely excluded. Although a followup scan may be performed to determine if this lesion has returned to baseline, consider outpatient MRI exam given additional findings in the right kidney. 5. Subtle contour abnormality in the inferior pole of the right kidney which cannot be further evaluated given lack of IV contrast. Although this likely reflects a simple contour abnormality, an isodense exophytic lesion cannot be entirely excluded. If this has not been previously evaluated, consider further outpatient evaluation with MRI exam. 6. Previously described indeterminate lesion near the superior pole of the right kidney is smaller in size and appears to be separate from the right kidney on coronal reconstructions. This can be further evaluated with MRI examination if performed for evaluation of the additional abnormalities in the right kidney. 7. Stable nonspecific small retroperitoneal and bilateral iliac lymph nodes. 8. Probable evolving hematoma in the left anterior abdominal wall. 9. Additional stable ancillary findings, as above. Ricci Deal MD Objective Remarks General: NAD, AAOx3 Chest: CTA Cardiac: Regular Abd: +BS, soft, obese, nondistended Ext: No edema A/P Problem List: (1) Renal calculus ICD Codes: N20.0 - Calculus of kidney Plan: Renal calculus hydronephrosis - Pt is a 62 y/o male with HTN, hyperlipidemia, DM, depression/anxiety, GERD, BPH, Left nephrectomy 1994 due to renal Ca. - Patient presented to the ER on 10/04/17 due to severe right lower quadrant and right flank which started at 3 AM and continues. - CT abdomen/pelvis (10/04/17) --> Left nephrectomy, 9 mm calcified calculus in the Right UPJ with associated mild to moderate right sided hydronephrosis. 3 mm calyceal calculus in the inferior pole of the right kidney. New 7 mm solid subpleural nodule in the left lung base. Recommend repeat exam in 3 month. Enlarging cystic lesion in the mid right kidney. Recommend follow up scan/ outpatient MRI. Subtle contour abnormality in the inferior pole of the right kidney. Probable evolving hematoma left anterior abd wall. See full report for further details. - Pt receiving Dilaudid PRN for pain - Flomax 0.4 mg PO Q12H - Urology following. - His renal function worsened on repeat labs on 10/05 with Cr 3.59. - Dr. Crawford spoke with Dr. Narvaez this morning who is recommending pt remain NPO for now, to hopefully get OR time today. - Gentle IVF - Mosley catheter - Repeat labs in AM HTN - Continue Norvasc 10 mg daily - Hold Lisinopril due to worsening renal function today Hyperlipidemia - Continue patient's home atorvastatin Diabetes mellitus - Hold metformin - Accu checks ACHS with SSI coverage Anxiety/depression - Continue patient's home sertraline 50 mg PO daily and Buspirone 15 mg daily DVT prophylaxis with SCDs (2) Hydronephrosis due to obstruction of ureter ICD Codes: N13.2 - Hydronephrosis with renal and ureteral calculous obstruction Status: Acute (3) Hyperlipidemia ICD Codes: E78.5 - Hyperlipidemia, unspecified Status: Chronic (4) HTN (hypertension) ICD Codes: I10 - Essential (primary) hypertension Status: Chronic (5) Diabetes mellitus ICD Codes: E11.9 - Type 2 diabetes mellitus without complications Assessment and Plan Patient examined. Assessment and plan formulated with Candelaria Arboleda PA-C. I agree with the above. obstructive uropathy with yinka right nephrolithiasis hx left rcc and nephrectomy called urology dr Narvaez this AM about rising cr. He will move cysto/stent up from tomorrow to today. cont ivf and pain meds. Candelaria Arboleda Oct 05, 2017 08:43 Fredi Crawford MD Oct 05, 2017 16:19
[2017-10-05] MEDS ORDERED: LISINOPRIL 20 MG TAB PO SCH (09:00)
[2017-10-05] MEDS ORDERED: FAMOTIDINE 20 MG TAB PO SCH (09:00)
[2017-10-05] MEDS: SODIUM CHLORIDE 0.9% FLUSH 10 ML FLUSH IV FLUSH SCH ×2 (09:29→22:00)
[2017-10-05] MEDS: DOCUSATE SODIUM 50 MG/SENNA 8.6 MG TAB PO SCH ×2 (09:30→23:03)
[2017-10-05] MEDS: TAMSULOSIN HCL 0.4 MG CAP PO SCH ×2 (09:31→23:03)
[2017-10-05] MEDS: SERTRALINE HCL 50 MG TAB PO SCH (09:31)
[2017-10-05] MEDS: busPIRone HCL 5 MG TAB PO SCH ×2 (09:31→21:00)
[2017-10-05] MEDS: HYDROmorphone HCL PF 2 MG/ML VIAL IV PUSH PRN ×2 (09:50→16:21)
[2017-10-05] MEDS ORDERED: ONDANSETRON HCL 4 MG/2 ML VIAL IV ONE (12:00)
[2017-10-05] MEDS ORDERED: PHENYLEPH/NS 1000 MCG/10 ML SYR IV ONE (12:00)
[2017-10-05] MEDS ORDERED: DEXAMETHASONE SOD PHOS 4 MG/ML VIAL IV ONE (12:00)
[2017-10-05] MEDS ORDERED: SUCCINYLCHOLINE CHLORIDE 200 MG/10 ML VIAL IV ONE (12:00)
[2017-10-05] MEDS ORDERED: GLYCOPYRROLATE 1 MG/5 ML SYRINGE IV PUSH ONE (12:00)
[2017-10-05] MEDS ORDERED: ROCURONIUM INJ 50 MG/5 ML SYRINGE IV PUSH ONE (12:00)
[2017-10-05] MEDS ORDERED: NEOSTIGMINE 5 MG/5 ML SYRINGE IV PUSH ONE (12:00)
[2017-10-05] MEDS ORDERED: ePHEDrine/NS 25 MG/5 ML SYRINGE IV ONE (12:00)
[2017-10-05] MEDS ORDERED: LIDOCAINE HCL 1% PF 5 ML SYRINGE OTHER ONE (12:00)
[2017-10-05] MEDS ORDERED: PROPOFOL 200 MG/20 ML AMP IV ONE (12:00)
[2017-10-05] MEDS ORDERED: PILL SPLITTER OTHER PRN (16:30)
--- NOTE | 2017-10-05 20:33 | PD.OP ---
Operative Report Date of Surgery: Oct 05, 2017 Preoperative Diagnosis: (1) Ureteral calculus, right Postoperative Diagnosis: (1) Ureteral calculus, right Procedure: Cystoscopy, right retrograde pyelogram and right ureteral stent placement. Anesthesia: General Surgeon: Oscar Narvaez Terrazzo Tile Maker(s): None Operation and Findings: Indication for procedures: Case of a pleasant 62-year-old gentleman with a solitary right kidney with an obstructing 9 mm right proximal ureteral calculus who presents now for right stent placement. Operative procedures in detail: Patient was brought to the operating room suite and placed supine on the cystoscopy table. He was then placed under general anesthesia. He was then repositioned in the dorsolithotomy position and prepped and draped in normal sterile fashion. After an appropriate timeout was undertaken I proceeded with cystoscopic evaluation utilizing the rigid cystoscope with the 30 lens and the 20 [place] sheath. The urethra was patent without stricture formation, the prostatic urethra was mildly obstructing with enlargement of the lateral lobes as well as some enlargement to the median lobe. Further passive cystoscope within the urinary bladder revealed the right ureteral orifice to be normal anatomic position. I then passed a sensor 0.035 wire up the right ureter and up into the right renal pelvis. A 6 Nigerian open- ended catheter was then advanced over the wire approximately 15 cm in a cephalad direction and the wire withdrawn. A right retrograde pyelogram study was then performed to outline the collecting system. The wire was then reintroduced and once again advanced into the right renal pelvis and the open- ended catheter was exchanged for a 6 [place] 24 cm long-term stent. The stent was placed on the both cystoscopic and fluoroscopic guidance without difficulty. A 16 Nigerian 10 cc Mosley catheter was then placed and connected to gravity drainage. The patient tolerated the procedures without complications and was transferred to the PACU in satisfactory condition. Oscar Narvaez MD Oct 05, 2017 20:33
[2017-10-05] MEDS ORDERED: SUGAMMADEX SODIUM 200 MG/2 ML VIAL IV PUSH ONE (20:35)
[2017-10-05] MEDS ORDERED: DO NOT ADM ANY ANTICOAGULANT DRUGS PRN (21:08)
[2017-10-05] MEDS: ATORVASTATIN 40 MG TAB PO SCH (23:02)
[2017-10-05] MEDS: FAMOTIDINE 20 MG TAB PO SCH (23:03)
[2017-10-06] VITALS (9 sets, daily range): BP systolic 117–135; BP diastolic 60–68; PULSE 67–90; RESP 18–22; TEMP 97.4–98.7; O2SAT 91–97
[2017-10-06] MEDS: SODIUM CHLOR 0.9% 1000 ML INJ 1,000 ML IV SCH ×2 (01:45→09:46)
[2017-10-06 05:29] LABS: AUTOMATED NEUTROPHIL # 12.7 TH/MM3 (1.8-7.7); BASOPHIL % 0.1 % (0.0-2.0); HEMATOCRIT 38.4 % (39.0-51.0); HEMOGLOBIN 12.4 GM/DL (13.0-17.0); LYMPH % 5.1 % (9.0-44.0); LYMPHOCYTE # 0.7 TH/MM3 (1.0-4.8); MEAN CELL VOLUME 82.2 FL (80.0-100.0); MEAN CORPUSCULAR HEMOGLOBIN 26.5 PG (27.0-34.0); MEAN CORPUSCULAR HGB CONC 32.2 % (32.0-36.0); MEAN PLATELET VOLUME 8.4 FL (7.0-11.0); MONO % 3.7 % (0.0-8.0); MONOCYTE # 0.5 TH/MM3 (0-0.9); NEUT % 91.1 % (16.0-70.0); PLATELET COUNT 209 TH/MM3 (150-450); RED BLOOD COUNT 4.68 MIL/MM3 (4.50-5.90); RED CELL DISTRIBUTION WIDTH 16.5 % (11.6-17.2)
[2017-10-06 05:52] LABS: BICARBONATE 25.9 MEQ/L (21.0-32.0); CALCIUM 7.9 MG/DL (8.5-10.1); CREATININE 2.84 MG/DL (0.60-1.30); MAGNESIUM 2.2 MG/DL (1.5-2.5)
[2017-10-06] MEDS: INSULIN ASPART SUPPLEMENTAL SCALE SQ SCH ×4 (08:00→21:00)
--- NOTE | 2017-10-06 08:43 | HHI.PR ---
Subjective Remarks Nursing staff reports that the pts O2 requirements increased last night. He has DL and does not use CPAP at home Pt reports a dry cough He is currently on 7L of supplemental O2 by simple mask Pt underwent cystoscopy with right retrograde pyelogram and right ureteral stent placement on 10/05/[address] Narvaez Objective Vitals Vital Signs Date Time Temp Pulse Resp B/P (MAP) Pulse Ox O2 Delivery O2 Flow Rate FiO2 10/06/17 08:00 97.8 77 22 124/64 (84) 96 10/06/17 04:00 98.7 90 22 123/64 (83) 92 10/06/17 01:21 97 Simple Mask 7.00 10/06/17 00:00 97.4 86 22 117/60 (79) 92 10/05/17 23:00 Simple Mask 5.00 10/05/17 22:15 106 21 105/56 (72) 92 Simple Mask 6 10/05/17 22:00 104 20 110/60 (77) 93 Simple Mask 6 10/05/17 21:45 93 18 107/57 (74) 94 Simple Mask 6 10/05/17 21:15 97 24 116/55 (75) 94 Simple Mask 10 10/05/17 21:00 98.0 102 24 137/69 (91) 91 Simple Mask 10 10/05/17 20:00 97.8 95 22 110/58 (75) 93 10/05/17 19:30 97.1 85 16 128/61 (83) 100 10/05/17 19:30 89 Nasal Cannula 2 10/05/17 19:30 87 10/05/17 15:28 98.0 100 20 139/81 (100) 96 10/05/17 11:30 97.9 87 20 147/82 (103) 94 Result Diagram: 10/06/17 0416 10/06/17 0416 Other Results Laboratory Tests Test 10/04/17 11:16 10/05/17 06:08 10/06/17 04:16 Urine Color BROWN Urine Turbidity TURBID Urine pH 5.5 Urine Specific [place] 1.038 Urine Protein 100 mg/dL Urine Glucose (UA) TRACE mg/dL Urine Ketones NEG mg/dL Urine Occult Blood LARGE Urine Nitrite NEG Urine Bilirubin NEG Urine Urobilinogen 2.0 MG/DL Urine Leukocyte Esterase TRACE Urine RBC /hpf Urine WBC /hpf Urine WBC Clumps MANY Urine Squamous Epithelial Cells 3 /hpf Urine Bacteria FEW /hpf Microscopic Urinalysis Comment CULTURE INDICATED White Blood Count 14.1 TH/MM3 14.0 TH/MM3 Red Blood Count 4.97 MIL/MM3 4.68 MIL/MM3 Hemoglobin 13.1 GM/DL 12.4 GM/DL Hematocrit 40.6 % 38.4 % Mean Corpuscular Volume 81.7 FL 82.2 FL Mean Corpuscular Hemoglobin 26.3 PG 26.5 PG Mean Corpuscular Hemoglobin Concent 32.2 % 32.2 % Red Cell Distribution Width 16.1 % 16.5 % Platelet Count 210 TH/MM3 209 TH/MM3 Mean Platelet Volume 8.3 FL 8.4 FL Neutrophils (%) (Auto) 80.3 % 91.1 % Lymphocytes (%) (Auto) 8.3 % 5.1 % Monocytes (%) (Auto) 10.5 % 3.7 % Eosinophils (%) (Auto) 0.3 % 0.0 % Basophils (%) (Auto) 0.6 % 0.1 % Neutrophils # (Auto) 11.3 TH/MM3 12.7 TH/MM3 Lymphocytes # (Auto) 1.2 TH/MM3 0.7 TH/MM3 Monocytes # (Auto) 1.5 TH/MM3 0.5 TH/MM3 Eosinophils # (Auto) 0.0 TH/MM3 0.0 TH/MM3 Basophils # (Auto) 0.1 TH/MM3 0.0 TH/MM3 CBC Comment DIFF FINAL DIFF FINAL Differential Comment Blood Urea Nitrogen 29 MG/DL 30 MG/DL Creatinine 3.59 MG/DL 2.84 MG/DL Random Glucose 114 MG/DL 124 MG/DL Calcium Level 8.3 MG/DL 7.9 MG/DL Sodium Level 139 MEQ/L 140 MEQ/L Potassium Level 4.4 MEQ/L 4.1 MEQ/L Chloride Level 103 MEQ/L 104 MEQ/L Carbon Dioxide Level 27.1 MEQ/L 25.9 MEQ/L Anion Gap 9 MEQ/L 10 MEQ/L Estimat Glomerular Filtration Rate 17 ML/MIN 23 ML/MIN Magnesium Level 2.2 MG/DL Imaging Last Impressions Abdomen/Pelvis CT 10/04/17 0707 Signed Impressions: Service Date/Time: Wednesday, October 04, 2017 08:29 - CONCLUSION: 1. Status post left nephrectomy. 2. 9 mm calcified calculus in the right UPJ with associated mild to moderate right-sided hydronephrosis. Additional 3 mm calyceal calculus in the inferior pole of the right kidney. 3. New 7 mm solid subpleural nodule in the left lung base. Recommend followup examination in 3 months document stability/resolution given apparent history of renal cell carcinoma. 4. Enlarging cystic lesion in the mid right kidney which is now indeterminate density (previously fluid in density). This may reflect sequela of current obstructive uropathy although an enlarging cystic mass cannot be entirely excluded. Although a followup scan may be performed to determine if this lesion has returned to baseline, consider outpatient MRI exam given additional findings in the right kidney. 5. Subtle contour abnormality in the inferior pole of the right kidney which cannot be further evaluated given lack of IV contrast. Although this likely reflects a simple contour abnormality, an isodense exophytic lesion cannot be entirely excluded. If this has not been previously evaluated, consider further outpatient evaluation with MRI exam. 6. Previously described indeterminate lesion near the superior pole of the right kidney is smaller in size and appears to be separate from the right kidney on coronal reconstructions. This can be further evaluated with MRI examination if performed for evaluation of the additional abnormalities in the right kidney. 7. Stable nonspecific small retroperitoneal and bilateral iliac lymph nodes. 8. Probable evolving hematoma in the left anterior abdominal wall. 9. Additional stable ancillary findings, as above. Ricci Deal MD Objective Remarks General: NAD, AAOx3 Chest: CTA Cardiac: Regular Abd: +BS, soft, obese, nondistended Ext: Bilateral LE edema A/P Problem List: (1) Renal calculus ICD Codes: N20.0 - Calculus of kidney Plan: Renal calculus Hydronephrosis - Pt is a 62 y/o male with HTN, hyperlipidemia, DM, depression/anxiety, GERD, BPH, Left nephrectomy 1994 due to renal Ca. - Patient presented to the ER on 10/04/17 due to severe right lower quadrant and right flank which started at 3 AM and continues. - CT abdomen/pelvis (10/04/17) --> Left nephrectomy, 9 mm calcified calculus in the Right UPJ with associated mild to moderate right sided hydronephrosis. 3 mm calyceal calculus in the inferior pole of the right kidney. New 7 mm solid subpleural nodule in the left lung base. Recommend repeat exam in 3 month. Enlarging cystic lesion in the mid right kidney. Recommend follow up scan/ outpatient MRI. Subtle contour abnormality in the inferior pole of the right kidney. Probable evolving hematoma left anterior abd wall. See full report for further details. - Pt receiving Dilaudid PRN for pain - Flomax 0.4 mg PO Q12H - Urology following. - His renal function worsened on repeat labs on 10/05 with Cr 3.59. - Pt underwent Cystoscopy with right retrograde pyelogram and right ureteral stent placement on 10/05/[address] Narvaez - Repeat labs on 10/06 with improvement in Cr to 2.84 - Gentle IVF - Mosley catheter - Repeat labs in AM Hypoxia Untreated DL - Pt with increased O2 requirements on 10/05/17 and currently on 7L via simple mask - Pt with dry cough today - Check CXR today HTN - Continue Norvasc 10 mg daily - Hold Lisinopril due to worsened renal function Hyperlipidemia - Continue patient's home atorvastatin Diabetes mellitus - Hold metformin - Accu checks ACHS with SSI coverage Anxiety/depression - Continue patient's home sertraline 50 mg PO daily and Buspirone 15 mg daily DVT prophylaxis with SCDs (2) Hydronephrosis due to obstruction of ureter ICD Codes: N13.2 - Hydronephrosis with renal and ureteral calculous obstruction Status: Acute (3) Hyperlipidemia ICD Codes: E78.5 - Hyperlipidemia, unspecified Status: Chronic (4) HTN (hypertension) ICD Codes: I10 - Essential (primary) hypertension Status: Chronic (5) Diabetes mellitus ICD Codes: E11.9 - Type 2 diabetes mellitus without complications Assessment and Plan Patient examined. Assessment and plan formulated with Candelaria Arboleda PA-C. I agree with the above. obstructive uropathy with yinka right nephrolithiasis hx left rcc and nephrectomy s/p right ureter stent . cr trending down and pt has less pain. cont ivf and monitor cr until nml then d/c Candelaria Arboleda Oct 06, 2017 08:43 Fredi Crawford MD Oct 06, 2017 10:56
[2017-10-06] MEDS: DOCUSATE SODIUM 50 MG/SENNA 8.6 MG TAB PO SCH ×2 (09:00→20:47)
--- NOTE | 2017-10-06 09:02 | RADRPT ---
EXAM DATE/TIME: 10/06/2017 08:21 [facility] COMPARISON: CHEST SINGLE AP, June 16, 2016, 8:41. INDICATIONS : Short of breath MEDICAL HISTORY : Diabetes mellitus type 2. Renal cell carcinoma. Hypertension, Nephrectomy. SURGICAL HISTORY : Nephrectomy, left. Gastric bypass. Cholecystectomy ENCOUNTER: Initial ACUITY: 3 days PAIN SCORE: 0/10 LOCATION: chest FINDINGS: The heart is enlarged. The lungs demonstrate some mild chronic parenchymal interstitial changes. The appearance is similar to previous dated 06/16/16. The visualized bony structures are grossly intact. CONCLUSION: 1. Cardiomegaly. Similar appearance of the examination compared to previous dated 06/16/16. Kunal Schuster MD on October 06, 2017 at 8:59 Board Certified Radiologist. This report was verified electronically.
[2017-10-06] MEDS: SERTRALINE HCL 50 MG TAB PO SCH (09:41)
[2017-10-06] MEDS: SODIUM CHLORIDE 0.9% FLUSH 10 ML FLUSH IV FLUSH SCH ×2 (09:41→20:54)
[2017-10-06] MEDS: busPIRone HCL 5 MG TAB PO SCH ×2 (09:41→20:54)
[2017-10-06] MEDS: FAMOTIDINE 20 MG TAB PO SCH ×2 (09:41→20:47)
[2017-10-06] MEDS: TAMSULOSIN HCL 0.4 MG CAP PO SCH ×2 (09:41→20:47)
[2017-10-06] MEDS: ATORVASTATIN 40 MG TAB PO SCH (20:47)
[2017-10-07] VITALS: BP 142/72; PULSE 76; RESP 18; TEMP 98.1; O2SAT 92
[2017-10-07] MEDS: SODIUM CHLOR 0.9% 1000 ML INJ 1,000 ML IV SCH (01:35)
[2017-10-07 07:16] LABS: BICARBONATE 28.4 MEQ/L (21.0-32.0); CALCIUM 8.7 MG/DL (8.5-10.1); CREATININE 1.12 MG/DL (0.60-1.30)
[2017-10-07 07:50] VITALS: BP 157/66; PULSE 66; RESP 18; TEMP 97.9; O2SAT 93
[2017-10-07] MEDS: INSULIN ASPART SUPPLEMENTAL SCALE SQ SCH ×2 (08:00→12:00)
[2017-10-07] MEDS: FAMOTIDINE 20 MG TAB PO SCH (09:37)
[2017-10-07] MEDS: SERTRALINE HCL 50 MG TAB PO SCH (09:37)
[2017-10-07] MEDS: DOCUSATE SODIUM 50 MG/SENNA 8.6 MG TAB PO SCH (09:37)
[2017-10-07] MEDS: busPIRone HCL 5 MG TAB PO SCH (09:37)
[2017-10-07] MEDS: TAMSULOSIN HCL 0.4 MG CAP PO SCH (09:37)
[2017-10-07] MEDS: SODIUM CHLORIDE 0.9% FLUSH 10 ML FLUSH IV FLUSH SCH (09:41)
[2017-10-07 09:52] VITALS: O2SAT 96
--- NOTE | 2017-10-07 09:57 | HHI.PR ---
Subjective Patient symptoms today Denies flank pain. Mosley DC'd yesterday and has been voiding well. Objective Vital Signs Vital Signs Date Time Temp Pulse Resp B/P (MAP) Pulse Ox O2 Delivery O2 Flow Rate FiO2 10/07/17 09:52 96 10/07/17 07:50 97.9 66 18 157/66 (96) 93 10/07/17 00:00 98.1 76 18 142/72 (95) 92 10/06/17 21:51 95 Simple Mask 7.00 10/06/17 20:45 Simple Mask 8.00 10/06/17 20:00 97.9 74 18 133/60 (84) 91 10/06/17 15:39 97.8 67 21 135/68 (90) 91 10/06/17 11:32 97.6 68 22 127/65 (85) 93 Intake & Output 10/07/17 10/07/17 07:00 19:00 Intake Total 240 ml Balance 240 ml Intake Oral 240 ml # Voids 4 # Bowel Movements 0 Result Diagram: 10/06/17 0416 10/07/17 0550 Objective Remarks No CVAT Bladder not distended Medications and IVs Current Medications Medications (Trade) Dose Ordered Sig/Sully Route Start Time Stop Time Status Last Admin Sodium Chloride 1,000 ml @ 84 mls/hr [id number] IV 10/04/17 14:00 10/07/17 01:35 (NS Flush) 2 ml UNSCH PRN IV FLUSH 10/04/17 13:45 (NS Flush) 2 ml BID IV FLUSH 10/04/17 21:00 10/07/17 09:41 (Tylenol) 650 mg Q4H PRN PO 10/04/17 13:45 10/04/17 22:31 (Zofran Inj) 4 mg Q6H PRN IVP 10/04/17 13:45 10/04/17 15:40 (Narcan Inj) 0.4 mg UNSCH PRN IV PUSH 10/04/17 13:45 (Sosa-Colace) 1 tab BID PO 10/04/17 21:00 10/07/17 09:37 (Milk Of Magnesia Liq) 30 ml Q12H PRN PO 10/04/17 13:45 (Dilaudid Pf Inj) 1 mg Q2HR PRN IV PUSH 10/04/17 16:00 10/05/17 16:21 (Norvasc) 10 mg DAILY PO 10/05/17 09:00 10/07/17 09:37 (Lipitor) 40 mg HS PO 10/04/17 21:00 10/06/17 20:47 (Buspar) 15 mg BID PO 10/04/17 21:00 10/07/17 09:37 (Zoloft) 50 mg DAILY PO 10/05/17 09:00 10/07/17 09:37 (D50w (Vial) Inj) 50 ml UNSCH PRN IV PUSH 10/04/17 14:15 (Glucagon Inj) 1 mg UNSCH PRN OTHER 10/04/17 14:15 (NovoLOG SUPPLEMENTAL SCALE) 1 ACHS SLIDING SCALE SQ 10/04/17 17:00 (Restoril) 7.5 mg HS PRN PO 10/04/17 21:00 (Flomax) 0.4 mg Q12HR PO 10/04/17 16:00 10/07/17 09:37 (Catapres) 0.1 mg Q4H PRN PO 10/04/17 20:00 (Pepcid) 10 mg BID PO 10/05/17 21:00 10/07/17 09:37 (Pill Splitter) 1 ea UNSCH PRN OTHER 10/05/17 16:30 Assessment and Plan Assessment and Plan UROLOGIC IMPRESSION: 1. S/P Right stent insertion for bstructing 9mm right ureteropelvic junction calculus 2. Solitary right kidney 3. 3mm right renal calculus 4. Right renal cyst PLAN: 1. Urologically stable to [place] home. 2. Will make arrangements for outpatient right ESWL 3. Outpatient MRI of the abdomen to better characterize right renal cyst Oscar Narvaez MD Oct 07, 2017 09:57
--- NOTE | 2017-10-07 10:07 | EKG ---
Date Performed: 10/05/2017 Time Performed: 11:36:49 PTAGE: 62 years EKG: Sinus rhythm RIGHT BUNDLE BRANCH BLOCK LEFT ANTERIOR FASCICULAR BLOCK with bifascicular block ABNORMAL ECG PREVIOUS TRACING 06/16/2016 Since the prior tracing, there has been no significant serial brown ge. DOCTOR: Summer Castellanos Interpretating Date/Time 10/07/2017 10:05:41
--- NOTE | 2017-10-07 11:28 | HHI.PR ---
Subjective Remarks Pt was requiring increased supplemental O2 overnight but nursing staff reports that he doesn't wear the simple mask often When I saw the pt this morning he was off all oxygen sitting up in the chair and O2 sats were in the mid to high 90's Pt has sleep apnea and refuses to use CPAP and likely desaturates at night typically. Pt had Mosley cath removed yesterday and is urinating without difficulty He is eating and drinking well and anxious to go home. Objective Vitals Vital Signs Date Time Temp Pulse Resp B/P (MAP) Pulse Ox O2 Delivery O2 Flow Rate FiO2 10/07/17 09:52 96 10/07/17 07:50 97.9 66 18 157/66 (96) 93 10/07/17 00:00 98.1 76 18 142/72 (95) 92 10/06/17 21:51 95 Simple Mask 7.00 10/06/17 20:45 Simple Mask 8.00 10/06/17 20:00 97.9 74 18 133/60 (84) 91 10/06/17 15:39 97.8 67 21 135/68 (90) 91 10/06/17 11:32 97.6 68 22 127/65 (85) 93 Result Diagram: 10/06/17 0416 10/07/17 0550 Other Results Laboratory Tests Test 10/06/17 04:16 10/07/17 05:50 White Blood Count 14.0 TH/MM3 Red Blood Count 4.68 MIL/MM3 Hemoglobin 12.4 GM/DL Hematocrit 38.4 % Mean Corpuscular Volume 82.2 FL Mean Corpuscular Hemoglobin 26.5 PG Mean Corpuscular Hemoglobin Concent 32.2 % Red Cell Distribution Width 16.5 % Platelet Count 209 TH/MM3 Mean Platelet Volume 8.4 FL Neutrophils (%) (Auto) 91.1 % Lymphocytes (%) (Auto) 5.1 % Monocytes (%) (Auto) 3.7 % Eosinophils (%) (Auto) 0.0 % Basophils (%) (Auto) 0.1 % Neutrophils # (Auto) 12.7 TH/MM3 Lymphocytes # (Auto) 0.7 TH/MM3 Monocytes # (Auto) 0.5 TH/MM3 Eosinophils # (Auto) 0.0 TH/MM3 Basophils # (Auto) 0.0 TH/MM3 CBC Comment DIFF FINAL Differential Comment Blood Urea Nitrogen 30 MG/DL 19 MG/DL Creatinine 2.84 MG/DL 1.12 MG/DL Random Glucose 124 MG/DL 87 MG/DL Calcium Level 7.9 MG/DL 8.7 MG/DL Magnesium Level 2.2 MG/DL Sodium Level 140 MEQ/L 141 MEQ/L Potassium Level 4.1 MEQ/L 3.8 MEQ/L Chloride Level 104 MEQ/L 105 MEQ/L Carbon Dioxide Level 25.9 MEQ/L 28.4 MEQ/L Anion Gap 10 MEQ/L 8 MEQ/L Estimat Glomerular Filtration Rate 23 ML/MIN 66 ML/MIN Imaging Last Impressions Abdomen/Pelvis CT 10/04/17 0707 Signed Impressions: Service Date/Time: Wednesday, October 04, 2017 08:29 - CONCLUSION: 1. Status post left nephrectomy. 2. 9 mm calcified calculus in the right UPJ with associated mild to moderate right-sided hydronephrosis. Additional 3 mm calyceal calculus in the inferior pole of the right kidney. 3. New 7 mm solid subpleural nodule in the left lung base. Recommend followup examination in 3 months document stability/resolution given apparent history of renal cell carcinoma. 4. Enlarging cystic lesion in the mid right kidney which is now indeterminate density (previously fluid in density). This may reflect sequela of current obstructive uropathy although an enlarging cystic mass cannot be entirely excluded. Although a followup scan may be performed to determine if this lesion has returned to baseline, consider outpatient MRI exam given additional findings in the right kidney. 5. Subtle contour abnormality in the inferior pole of the right kidney which cannot be further evaluated given lack of IV contrast. Although this likely reflects a simple contour abnormality, an isodense exophytic lesion cannot be entirely excluded. If this has not been previously evaluated, consider further outpatient evaluation with MRI exam. 6. Previously described indeterminate lesion near the superior pole of the right kidney is smaller in size and appears to be separate from the right kidney on coronal reconstructions. This can be further evaluated with MRI examination if performed for evaluation of the additional abnormalities in the right kidney. 7. Stable nonspecific small retroperitoneal and bilateral iliac lymph nodes. 8. Probable evolving hematoma in the left anterior abdominal wall. 9. Additional stable ancillary findings, as above. Ricci Deal MD Objective Remarks General: NAD, AAOx3 Chest: CTA Cardiac: Regular Abd: +BS, soft, obese, nondistended Ext: Bilateral LE edema, chronic A/P Problem List: (1) Renal calculus ICD Codes: N20.0 - Calculus of kidney Plan: Renal calculus Hydronephrosis - Pt is a 62 y/o male with HTN, hyperlipidemia, DM, depression/anxiety, GERD, BPH, Left nephrectomy 1994 due to renal Ca. - Patient presented to the ER on 10/04/17 due to severe right lower quadrant and right flank which started at 3 AM and continues. - CT abdomen/pelvis (10/04/17) --> Left nephrectomy, 9 mm calcified calculus in the Right UPJ with associated mild to moderate right sided hydronephrosis. 3 mm calyceal calculus in the inferior pole of the right kidney. New 7 mm solid subpleural nodule in the left lung base. Recommend repeat exam in 3 month. Enlarging cystic lesion in the mid right kidney. Recommend follow up scan/ outpatient MRI. Subtle contour abnormality in the inferior pole of the right kidney. Probable evolving hematoma left anterior abd wall. See full report for further details. - Pt receiving Dilaudid PRN for pain - Flomax 0.4 mg PO Q12H - Urology following. - His renal function worsened on repeat labs on 10/05 with Cr 3.59. - Pt underwent Cystoscopy with right retrograde pyelogram and right ureteral stent placement on 10/05/[address] Narvaez - Repeat labs on 10/06 with improvement in Cr to 2.84 on 10/06 and renal functions normalized on 10/07 to Cr 1.12 - stop IVF - Mosley catheter removed on 10/06 and pt urinating without difficulty - Pt will need followup with Dr. Narvaez as he will likely require right ESWL - He will need outpatient MRI of the abdomen to better characterize right renal cyst Hypoxia Untreated DL - Pt with increased O2 requirements on 10/05/17 and currently on 7L via simple mask - Pt with dry cough - CXR (10/06) --> Cardiomegaly - Pt likely desaturated at night typically with his DL and refuses to use CPAP at home. Pt has been noncompliant with using the simple mask during this hospitalization as well according to the nursing staff. - On 10/07 pt has been saturating well with O2 sats in the mid to high 90s on RA while sitting up out of bed. - Pt is to followup with Dr. Drew as an outpt to see about getting a different sleep apnea mask New lung nodule noted on left lung base - Pt will need outpt CT scan, recommended for 3 month followup, to be ordered by PCP HTN - Continue Norvasc 10 mg daily - Hold Lisinopril due to worsened renal function Hyperlipidemia - Continue patient's home atorvastatin Diabetes mellitus - Hold metformin - Accu checks ACHS with SSI coverage Anxiety/depression - Continue patient's home sertraline 50 mg PO daily and Buspirone 15 mg daily (2) Hydronephrosis due to obstruction of ureter ICD Codes: N13.2 - Hydronephrosis with renal and ureteral calculous obstruction Status: Acute (3) Hyperlipidemia ICD Codes: E78.5 - Hyperlipidemia, unspecified Status: Chronic (4) HTN (hypertension) ICD Codes: I10 - Essential (primary) hypertension Status: Chronic (5) Diabetes mellitus ICD Codes: E11.9 - Type 2 diabetes mellitus without complications Assessment and Plan Patient examined. Assessment and plan formulated with Candelaria Arboleda PA-C. I agree with the above. obstructive uropathy with yinka right nephrolithiasis hx left rcc and nephrectomy s/p right ureter stent . cr trending down and pt has less pain. cont ivf and monitor cr until nml then d/c Candelaria Arboleda Oct 07, 2017 11:28
[2017-10-07] MEDS ORDERED: TAMS5CAP PO (11:32)
--- NOTE | 2017-10-07 11:42 | HHI.DCPOC ---
Discharge Care Plan Diagnosis: (1) Hydronephrosis due to obstruction of ureter (2) Ureteral calculus, right (3) Solitary right kidney (4) Renal mass, right (5) Lung nodule, multiple (6) HTN (hypertension) (7) Diabetes mellitus (8) Hyperlipidemia (9) Acute renal failure Goals to Promote Your Health - Patient will need followup with Dr. Narvaez in 2 weeks as he will likely require right ESWL for the ureteral stone - He will need outpatient MRI of the abdomen to better characterize right renal cyst - Patient had a noted 7 mm nodule in the left lung base. Pt will need a repeat exam CT Chest in 3 months. His PCP to order this - Patient is to followup with his PCP, Dr. Bautista in 1 week, call for an appt - Patient is to followup with Dr. Narvaez in 2 weeks, call for an appt - Patient is to followup with Dr. Taylor, Pulmonary medicine, to see if any new sleep apnea masks are available and may work better. - New Medication added to his regimen is Flomax 0.4mg twice daily - Monitor BP at home and report changes to his PCP. Directions to Meet Your Goals Take your medications as prescribed Follow your dietary instruction Follow activity as directed Keep your appointments as scheduled Take your immunizations and boosters as scheduled If your symptoms worsen call your PCP, if no PCP go to Urgent Care Center or Emergency Room Smoking is Dangerous to Your Health. Avoid second hand smoke Call the 24-hour hour crisis hotline for domestic abuse at Candelaria Arboleda Oct 07, 2017 11:42
[2017-10-07 12:00] VITALS: BP 138/83; PULSE 92; RESP 20; TEMP 97.8; O2SAT 93
--- NOTE | 2017-10-07 12:11 | HHI.DS ---
Discharge Summary Admission Date Oct 04, 2017 at 13:47 Discharge Date: Oct 07, 2017 Admitting Diagnosis renal calculus R UPJ and right hydronephrosis (1) Renal calculus Diagnosis: Principal ICD Codes: N20.0 - Calculus of kidney (2) Hydronephrosis due to obstruction of ureter Diagnosis: Secondary ICD Codes: N13.2 - Hydronephrosis with renal and ureteral calculous obstruction Status: Acute (3) Hyperlipidemia Diagnosis: Secondary ICD Codes: E78.5 - Hyperlipidemia, unspecified Status: Chronic (4) HTN (hypertension) Diagnosis: Secondary ICD Codes: I10 - Essential (primary) hypertension Status: Chronic (5) Diabetes mellitus Diagnosis: Secondary ICD Codes: E11.9 - Type 2 diabetes mellitus without complications (6) Acute renal failure Diagnosis: Secondary ICD Codes: N17.9 - Acute kidney failure, unspecified (7) DL (obstructive sleep apnea) Diagnosis: Secondary ICD Codes: G47.33 - Obstructive sleep apnea (adult) (pediatric) Consultants Dr. Oscar Narvaez - Urology Brief History This is a 62 year old male patient with a past medical history which includes HTN, hyperlipidemia, DM, depression/anxiety, GERD, BPH, Left nephrectomy 1994 due to renal Ca. Patient presents to the ER today due to severe right lower quadrant and right flank which started at 3 AM and continues. Patient also had associated nausea but no vomiting. Patient is restless standing up pacing about the room due to his discomfort. Patient reports that he has never had a kidney stone in the past. Patient has also been unable to pass urine since this morning. Patient denies chest pain, shortness of breath, vomiting, diarrhea fevers or chills. CT abdomen/pelvic reveals: left nephrectomy. 9 mm calcified calculus in the Right UPJ with associated mild to moderate right sided hydronephrosis. 3 mm calyceal calculus in the inferior pole of the right kidney. New 7 mm solid subpleural nodule in the left lung base. Recommend repeat exam in 3 month. Enlarging cystic lesion in the mid right kidney. Recommend follow up scan/ outpatient MRI. Subtle contour abnormality in the inferior pole of the right kidney. Probable evolving hematoma left anterior abd wall. See full report for further details. CBC/BMP: 10/06/17 0416 10/07/17 0550 Significant Findings Laboratory Tests Test 10/05/17 06:08 10/06/17 04:16 10/07/17 05:50 White Blood Count 14.1 TH/MM3 (4.0-11.0) 14.0 TH/MM3 (4.0-11.0) Mean Corpuscular Hemoglobin 26.3 PG (27.0-34.0) 26.5 PG (27.0-34.0) Neutrophils (%) (Auto) 80.3 % (16.0-70.0) 91.1 % (16.0-70.0) Lymphocytes (%) (Auto) 8.3 % (9.0-44.0) 5.1 % (9.0-44.0) Monocytes (%) (Auto) 10.5 % (0.0-8.0) Neutrophils # (Auto) 11.3 TH/MM3 (1.8-7.7) 12.7 TH/MM3 (1.8-7.7) Monocytes # (Auto) 1.5 TH/MM3 (0-0.9) Blood Urea Nitrogen 29 MG/DL (7-18) 30 MG/DL (7-18) 19 MG/DL (7-18) Creatinine 3.59 MG/DL (0.60-1.30) 2.84 MG/DL (0.60-1.30) Random Glucose 114 MG/DL (74-106) 124 MG/DL (74-106) Calcium Level 8.3 MG/DL (8.5-10.1) 7.9 MG/DL (8.5-10.1) Estimat Glomerular Filtration Rate 17 ML/MIN (>89) 23 ML/MIN (>89) 66 ML/MIN (>89) Hemoglobin 12.4 GM/DL (13.0-17.0) Hematocrit 38.4 % (39.0-51.0) Lymphocytes # (Auto) 0.7 TH/MM3 (1.0-4.8) Imaging Last Impressions Chest X-Ray 10/06/17 0000 Signed Impressions: Service Date/Time: October 08:21 - CONCLUSION: 1. Cardiomegaly. Similar appearance of the examination compared to previous dated 06/16/16. Kunal Schuster MD Abdomen/Pelvis CT 10/04/17 0707 Signed Impressions: Service Date/Time: Wednesday, October 04, 2017 08:29 - CONCLUSION: 1. Status post left nephrectomy. 2. 9 mm calcified calculus in the right UPJ with associated mild to moderate right-sided hydronephrosis. Additional 3 mm calyceal calculus in the inferior pole of the right kidney. 3. New 7 mm solid subpleural nodule in the left lung base. Recommend followup examination in 3 months document stability/resolution given apparent history of renal cell carcinoma. 4. Enlarging cystic lesion in the mid right kidney which is now indeterminate density (previously fluid in density). This may reflect sequela of current obstructive uropathy although an enlarging cystic mass cannot be entirely excluded. Although a followup scan may be performed to determine if this lesion has returned to baseline, consider outpatient MRI exam given additional findings in the right kidney. 5. Subtle contour abnormality in the inferior pole of the right kidney which cannot be further evaluated given lack of IV contrast. Although this likely reflects a simple contour abnormality, an isodense exophytic lesion cannot be entirely excluded. If this has not been previously evaluated, consider further outpatient evaluation with MRI exam. 6. Previously described indeterminate lesion near the superior pole of the right kidney is smaller in size and appears to be separate from the right kidney on coronal reconstructions. This can be further evaluated with MRI examination if performed for evaluation of the additional abnormalities in the right kidney. 7. Stable nonspecific small retroperitoneal and bilateral iliac lymph nodes. 8. Probable evolving hematoma in the left anterior abdominal wall. 9. Additional stable ancillary findings, as above. Ricci Deal MD PE at Discharge General: NAD, AAOx3 Chest: CTA Cardiac: Regular Abd: +BS, soft, obese, nondistended Ext: Bilateral LE edema, chronic Hospital Course Renal calculus Hydronephrosis Acute renal failure, improved Pt is a 62 y/o male with HTN, hyperlipidemia, DM, depression/anxiety, GERD, BPH , Left nephrectomy 1994 due to renal Ca. Patient presented to the ER on 10/04/17 due to severe right lower quadrant and right flank which started at [address] abdomen/pelvis (10/04/17) --> Left nephrectomy, 9 mm calcified calculus in the Right UPJ with associated mild to moderate right sided hydronephrosis, 3 mm calyceal calculus in the inferior pole of the right kidney , a new 7 mm solid subpleural nodule in the left lung base. Recommend repeat exam in 3 month, and a enlarging cystic lesion in the mid right kidney. Recommend follow up scan/outpatient MRI. Subtle contour abnormality in the inferior pole of the right kidney, probable evolving hematoma left anterior abd wall. Pt received Dilaudid PRN for pain and Flomax 0.4 mg PO Q12H. Urology was consulted. His renal function worsened on repeat labs on 10/05 with Cr 3.59. Pt underwent Cystoscopy with right retrograde pyelogram and right ureteral stent placement on 10/05/[address] Narvaez. Repeat labs on 10/06 with improvement in Cr to 2.84 on 10/06 and renal functions normalized on 10/07 to Cr 1.12. Mosley catheter was removed on 10/06 and pt urinating without difficulty. Pt will need followup with Dr. Narvaez in 2 weeks as he will likely require right ESWL. He will need outpatient MRI of the abdomen to better characterize right renal cyst. Hypoxia Untreated DL Pt with increased O2 requirements on 10/05/17 and currently on 7L via simple mask and reported a dry cough. CXR (10/06) --> Cardiomegaly. Pt has hx of DL and refused to use CPAP at home. Pt has been noncompliant with using the simple mask during this hospitalization as well according to the nursing staff. On 10/07 pt has been saturating well with O2 sats in the mid to high 90s on RA while sitting up out of bed. He denies any SOB and felt that he was at his baseline respiratory status prior to discharge. He was ambulating around the floor without difficulty or SOB. He will need to followup with Pulmonary Medicine, Dr. Bond, as an outpt to see about getting a new mask for treatment of his DL. New lung nodule noted on left lung base Pt will need outpatient CT Chest scan, recommended for 3 month followup, to be ordered by PCP HTN Continue home meds upon discharge. Pt is to monitor his BP readings at home for any fluctuations and report these to his PCP. Hyperlipidemia Continue patient's home atorvastatin Diabetes mellitus Pt to resume his home dose of Metformin upon discharge. Anxiety/depression Continue patient's home sertraline 50 mg PO daily and Buspirone 15 mg daily Pt Condition on Discharge: Stable Discharge Disposition: Discharge Home Discharge Instructions DIET: Follow Instructions for: Diabetic Diet Activities you can perform: Regular-No Restrictions Follow up Referrals: PCP Follow-up - [address] Pedro Bautista Pulmonology - 2 Weeks with Varun Bond MD Urology - 2 Weeks with Oscar Narvaez MD New Medications: Tamsulosin (Flomax) 0.4 Mg Cap 0.4 MG PO Q12HR for nephrolithiasis, #62 CAP Continued Medications: Amlodipine (Norvasc) 10 Mg Tab 10 MG PO DAILY for Blood Pressure Management, #30 TAB 0 Refills Atorvastatin (Atorvastatin) 40 Mg Tab 40 MG PO HS for Cholesterol Management, #30 TAB 0 Refills Buspirone (Buspirone) 15 Mg Tab 15 MG PO BID for Anxiety, TAB 0 Refills Ferrous Sulfate (Ferrous Sulfate) 325 Mg Tab 325 MG PO TWICEAWEEK for Nutritional Supplement, #30 TAB 0 Refills Lisinopril (Lisinopril) 40 Mg Tab 40 MG PO DAILY for Blood Pressure Management, #30 TAB 0 Refills Metformin (Metformin) 500 Mg Tab 500 MG PO BIDPC for Blood Sugar Management, #60 TAB 0 Refills With meals Multiple Vitamin (One Daily) 1 Tab 1 TAB PO DAILY for Nutritional Supplement, TAB 0 Refills Ranitidine (Zantac) 150 Mg Tab 150 MG PO DAILY for Reduce Stomach Acid, #30 TAB 0 Refills Sertraline (Sertraline) 50 Mg Tab 50 MG PO DAILY, #30 TAB 0 Refills Temazepam (Restoril) 7.5 Mg Cap 7.5 MG PO HS PRN for INSOMNIA, #30 CAP 0 Refills Trazodone (Trazodone) 100 Mg Tab 100 MG PO HS for Control Depression, #30 TAB 0 Refills Triamterene-Hydrochlorothiazide (Triamterene-Hydrochlorothiazide) 37.5-25 Mg Cap 1 CAP PO DAILY, #30 CAP 0 Refills Candelaria Arboleda Oct 07, 2017 12:11 Fredi Crawford MD Oct 07, 2017 12:49
[2017-10-08] MEDS ORDERED: FERR325T18 PO (23:57)
[2017-10-08] MEDS ORDERED: TRAZ100T10 PO (23:57)
== END 2017-10-07 14:48 | disposition home or self-care (01) | DRG 694 ==
LOC: NEPC 06:15 → NEDA 13:47 → NEPGCP 18:14 → N07B 10-05 20:00
PROVIDERS: ADMIT Hospitalist; ATTEND Hospitalist
PROC: BT1DYZZ Fluoroscopy of Right Kidney, Ureter and Bladder using Other Contrast (ICD-10-PCS; 2017-10-05)
PROC: 0T768DZ Dilation of Right Ureter with Intraluminal Device, Via Natural or Artificial Opening Endoscopic (ICD-10-PCS; principal; 2017-10-05 19:54)
DX: N13.2 Hydronephrosis with renal and ureteral calculous obstruction (principal); N17.9 Acute kidney failure, unspecified; Z68.43 Body mass index [BMI] 50.0-59.9, adult; I10 Essential (primary) hypertension; E11.9 Type 2 diabetes mellitus without complications; G47.33 Obstructive sleep apnea (adult) (pediatric); M06.9 Rheumatoid arthritis, unspecified; R91.1 Solitary pulmonary nodule; E66.9 Obesity, unspecified; N40.0 Benign prostatic hyperplasia without lower urinary tract symptoms; K21.9 Gastro-esophageal reflux disease without esophagitis; F32.9 Major depressive disorder, single episode, unspecified; F41.9 Anxiety disorder, unspecified; R09.02 Hypoxemia; E78.5 Hyperlipidemia, unspecified; Z96.651 Presence of right artificial knee joint; N28.1 Cyst of kidney, acquired; Z90.5 Acquired absence of kidney; Z98.84 Bariatric surgery status; Z79.899 Other long term (current) drug therapy; Z87.891 Personal history of nicotine dependence; Z79.84 Long term (current) use of oral hypoglycemic drugs; Z85.528 Personal history of other malignant neoplasm of kidney; Z91.19 Patient's noncompliance with other medical treatment and regimen
CPT/HCPCS: 71045; 74177; 74420; 80048; 80053; 81001; 82948; 83735; 85025; 85610; 85730; 87086; 93005; 94150; 96374; 96375; C1769; J0330; J1100; J1170; J2270; J2370; J2405; J2710; J3010; J7030; Q9967

== ENCOUNTER 2017-10-08 21:27 | Inpatient (IN) | payer MEDICARE ==
[~2017-10-08] VITALS: Ht 167.6 cm; Wt 153.6 kg
[~2017-10-08 21:27] MED LIST changes: -FURO1TAB62 PO; +SERT-132 PO; +TAMS5CAP PO; +TEMA7.5C9 PO; -TRAM50TA PO; +TRIA37.53 PO; +ZANT150T2 PO
[2017-10-08 22:19] VITALS: BP 156/95; PULSE 108; RESP 20; TEMP 98.6; O2SAT 95
[2017-10-08] MEDS ORDERED: SODIUM CHLORIDE 0.9% FLUSH 10 ML FLUSH IVF PRN (23:45)
--- NOTE | 2017-10-08 23:48 | PD ---
HPI Chief Complaint: Complaint Time Seen by Provider: 23:38 Travel History International Travel<30 days: No Contact w/Intl Traveler<30days: No Traveled to known affect area: No History of Present Illness HPI 62-year-old male with history of diabetes, hypertension, hyperlipidemia, renal carcinoma status post left nephrectomy, recent admission for ureterolithiasis with ureteral stent placement, here for evaluation of increased urinary frequency and shortness of breath. Patient was discharged from the hospital 2 days ago. He reports shortness of breath at rest, worse with exertion. No cough or hemoptysis. No history of DVT or PE. He has had subjective chills but is unsure if he has had a fever. He denies chest pain. Reports that his flank pain has resolved since ureteral stent placement. He is scheduled to follow-up with urology in 2 weeks for lithotripsy. PFSH Past Medical History Arthritis: Yes Asthma: No Autoimmune Disease: No Blood Disorders: No Anxiety: Yes Depression: Yes Heart Rhythm Problems: No Cancer: Yes (KIDNEY) Cardiovascular Problems: Yes High Cholesterol: Yes Chemotherapy: No Chest Pain: No Congestive Heart Failure: No COPD: No Cerebrovascular Accident: No Diabetes: Yes Patient Takes Glucophage: No Diminished Hearing: No Endocrine: No Gastrointestinal Disorders: Yes GERD: Yes Glaucoma: No Genitourinary: Yes (KIDNEY CANCER - LEFT REMOVAL) Headaches: No Hepatitis: No Hiatal Hernia: No Hypertension: Yes Immune Disorder: Yes (RHEUMATOID ARTHRITIS) Implanted Vascular Access Dvce: Yes Kidney Stones: No Musculoskeletal: Yes (OA; AND RHEUMATOID) Neurologic: Yes Psychiatric: Yes Reproductive: No Respiratory: Yes Migraines: No Myocardial Infarction: No Pneumonia: Yes Radiation Therapy: No Renal Failure: No Seizures: No Sickle Cell Disease: No Sleep Apnea: Yes Thyroid Disease: No Ulcer: No Past Surgical History Abdominal Surgery: Yes (BYPASS-GASTRIC ; 1984 [facility]) AICD: No Appendectomy: No Arteriovenous Shunt: No Cardiac Surgery: Yes (STENT 09/18) Cholecystectomy: Yes Ear Surgery: No Endocrine Surgery: No Eye Surgery: No Genitourinary Surgery: Yes (LEFT NEPHRECTOMY) Insulin Pump: No Joint Replacement: Yes (LEFT TOTAL KNEE;RIGHT TOTAL KNEE REPLACEMENT) Neurologic Surgery: No Oral Surgery: No Pacemaker: No Thoracic Surgery: No Other Surgery: Yes (left kidney removed,right carpal tunnel-RIGHT) Social History Alcohol Use: No Tobacco Use: No Substance Use: No Allergies-Medications (Allergen,Severity, Reaction): Coded Allergies: divalproex sodium (Verified Allergy, Intermediate, 10/08/17) daptomycin (Unverified Allergy, Unknown, 10/04/17) Uncoded Allergies: deptamycin (Allergy, Severe, 05/30/11) Reported Meds & Prescriptions Reported Meds & Active Scripts Active Flomax (Tamsulosin HCl) 0.4 Mg Cap 0.4 Mg PO Q12HR Reported Ferrous Sulfate 325 Mg (65 Mg Iron) Tablet 325 Mg PO DAILY Trazodone (Trazodone HCl) 100 Mg Tablet 100 Mg PO HS Zantac (Ranitidine HCl) 150 Mg Tab 150 Mg PO DAILY Restoril (Temazepam) 7.5 Mg Cap 7.5 Mg PO HS PRN Triamterene-Hydrochlorothiazide 37.5-25 Mg Cap 1 Cap PO DAILY Sertraline (Sertraline HCl) 50 Mg Tab 50 Mg PO DAILY Metformin (Metformin HCl) 500 Mg Tab 500 Mg PO BIDPC With meals Lisinopril 40 Mg Tab 40 Mg PO DAILY Buspirone (Buspirone HCl) 15 Mg Tab 15 Mg PO BID Atorvastatin (Atorvastatin Calcium) 40 Mg Tab 40 Mg PO HS One Daily (Multiple Vitamin) 1 Tab 1 Tab PO DAILY Norvasc (Amlodipine Besylate) 10 Mg Tab 10 Mg PO DAILY Review of Systems Except as stated in HPI: all other systems reviewed are Neg Physical Exam Narrative GENERAL: Well-developed, well-nourished, overweight, comfortable, no apparent distress. SKIN: Focused skin assessment warm/dry. HEAD: Atraumatic. Normocephalic. EYES: Pupils equal and round. No scleral icterus. No injection or drainage. ENT: No nasal bleeding or discharge. Mucous membranes pink and moist. NECK: Trachea midline. No JVD. CARDIOVASCULAR: Regular rate and rhythm. RESPIRATORY: No accessory muscle use. Clear to auscultation. Breath sounds equal bilaterally. GASTROINTESTINAL: Abdomen soft, non-tender, nondistended. MUSCULOSKELETAL: No obvious deformities. No clubbing. No cyanosis. NEUROLOGICAL: Awake and alert. No obvious cranial nerve deficits. Motor grossly within normal limits. Normal speech. PSYCHIATRIC: Appropriate mood and affect; insight and judgment normal. Data Data Last Documented VS Vital Signs Date Time Temp Pulse Resp B/P (MAP) Pulse Ox O2 Delivery O2 Flow Rate FiO2 10/09/17 00:33 100.3 10/08/17 23:58 97 Room Air 10/08/17 22:19 108 20 156/95 (115) Orders Orders Complete Blood Count With Diff (10/08/17 23:42) Comprehensive Metabolic Panel (10/08/17 23:42) B-Type Natriuretic Peptide (10/08/17 23:42) Act Partial Throm Time (Ptt) (10/08/17 23:42) Prothrombin Time / Inr (Pt) (10/08/17 23:42) Ckmb (Isoenzyme) Profile (10/08/17 23:42) Troponin I (10/08/17 23:42) Iv Access Insert/Monitor (10/08/17 23:42) Electrocardiogram (10/08/17:42) Ecg Monitoring (10/08/17 23:42) Oximetry (10/08/17 23:42) Oxygen Administration (10/08/17 23:42) Chest, Single Ap (10/08/17 23:42) Sodium Chloride 0.9% Flush (Ns Flush) (10/08/17 23:45) Urinalysis - C+S If Indicated (10/08/17 23:42) Ceftriaxone Inj (Rocephin Inj) (10/09/17 00:45) Acetaminophen (Tylenol) (10/09/17 00:45) Lactic Acid Sepsis Protocol (10/09/17 00:32) Blood Culture (10/09/17 00:32) Sodium Chlor 0.9% 1000 Ml Inj (Ns 1000 M (10/09/17 00:32) Sodium Chlor 0.9% 1000 Ml Inj (Ns 1000 M (10/09/17 00:45) Urine Culture (10/09/17 00:20) Piperacil-Tazo 4.5 Gm Premix (Zosyn 4.5 (10/09/17 01:30) Piperacil-Tazo 4.5 Gm Premix (Zosyn 4.5 (10/09/17 01:30) Admit Order (Ed Use Only) (10/09/17 01:30) Labs Laboratory Tests Test 10/08/17 23:55 10/09/17 00:20 10/09/17 00:40 White Blood Count 18.6 TH/MM3 Red Blood Count 5.31 MIL/MM3 Hemoglobin 13.8 GM/DL Hematocrit 42.6 % Mean Corpuscular Volume 80.2 FL Mean Corpuscular Hemoglobin 26.0 PG Mean Corpuscular Hemoglobin Concent 32.4 % Red Cell Distribution Width 16.3 % Platelet Count 233 TH/MM3 Mean Platelet Volume 8.1 FL Neutrophils (%) (Auto) 86.2 % Lymphocytes (%) (Auto) 4.6 % Monocytes (%) (Auto) 8.9 % Eosinophils (%) (Auto) 0.1 % Basophils (%) (Auto) 0.2 % Neutrophils # (Auto) 16.0 TH/MM3 Lymphocytes # (Auto) 0.9 TH/MM3 Monocytes # (Auto) 1.7 TH/MM3 Eosinophils # (Auto) 0.0 TH/MM3 Basophils # (Auto) 0.0 TH/MM3 CBC Comment AUTO DIFF Prothrombin Time 10.1 SEC Prothromb Time International Ratio 1.0 RATIO Activated Partial Thromboplast Time 26.1 SEC Blood Urea Nitrogen 11 MG/DL Creatinine 0.96 MG/DL Random Glucose 115 MG/DL Total Protein 7.7 GM/DL Albumin 2.8 GM/DL Calcium Level 9.4 MG/DL Alkaline Phosphatase 126 U/L Aspartate Amino Transf (AST/SGOT) 22 U/L Alanine Aminotransferase (ALT/SGPT) 17 U/L Total Bilirubin 1.1 MG/DL Sodium Level 140 MEQ/L Potassium Level 3.5 MEQ/L Chloride Level 102 MEQ/L Carbon Dioxide Level 26.9 MEQ/L Anion Gap 11 MEQ/L Estimat Glomerular Filtration Rate 79 ML/MIN Total Creatine Kinase 77 U/L Troponin I LESS THAN 0.02 NG/ML B-Type Natriuretic Peptide 112 PG/ML Urine Color YELLOW Urine Turbidity CLOUDY Urine pH 5.5 Urine Specific [place] 1.016 Urine Protein 100 mg/dL Urine Glucose (UA) NEG mg/dL Urine Ketones NEG mg/dL Urine Occult Blood MOD Urine Nitrite NEG Urine Bilirubin NEG Urine Urobilinogen 2.0 MG/DL Urine Leukocyte Esterase LARGE Urine RBC 75 /hpf Urine WBC /hpf Urine WBC Clumps OCC Urine Squamous Epithelial Cells <1 /hpf Urine Amorphous Sediment RARE Urine Bacteria MANY /hpf Urine Mucus FEW /lpf Microscopic Urinalysis Comment CULTURE INDICATED Lactic Acid Level 1.1 mmol/L MDM Medical Decision Making Medical Screen Exam Complete: Yes Emergency Medical Condition: Yes Differential Diagnosis Pneumonia, pneumothorax, pleural effusion, PE, UTI, pyelonephritis, cystitis Narrative Course Initial vital signs show heart rate 108, blood pressure 156/95, pulse ox 97% on room air, rectal temperature 100.3F. CMP is essentially unremarkable. Cardiac enzymes are negative. UA is suggestive of UTI. Chest x-ray: Chronic moderate cardiac silhouette enlargement. No acute cardiomegaly disease. The patient was empirically given Rocephin for suspected UTI. He has a right ureteral stent that was recently placed. He will be admitted for further treatment and evaluation of sepsis, UTI. Case discussed with [facility] hospitalist Dr. Curiel. The patient will be admitted to their service under Dr. Crawford. Diagnosis Primary Impression: Sepsis Qualified Codes: A41.9 - Sepsis, unspecified organism Additional Impression: UTI (urinary tract infection) Qualified Codes: N39.0 - Urinary tract infection, site not specified; R31.9 - Hematuria, unspecified Admitting Information Admitting Physician Requests: Admit Jong Garcia MD Oct 08, 2017 23:47
[2017-10-08] MEDS ORDERED: TRAZ100T10 PO (23:57)
[2017-10-08] MEDS ORDERED: FERR325T18 PO (23:57)
[2017-10-08 23:58] VITALS: O2SAT 97
[2017-10-09] VITALS (7 sets, daily range): BP systolic 121–146; BP diastolic 63–84; PULSE 70–115; RESP 17–20; TEMP 97.9–100.3; O2SAT 91–98
--- NOTE | 2017-10-09 00:10 | RADRPT ---
EXAM DATE/TIME: 10/08/2017 23:52 [facility] COMPARISON: CHEST SINGLE AP, October 06, 2017, 8:21. INDICATIONS : Shortness of breath. MEDICAL HISTORY : Diabetes mellitus type II. Renal cell carcinoma. Hypertension. SURGICAL HISTORY : Nephrectomy, left. Gastric bypass. Cholecystectomy. ENCOUNTER: Initial ACUITY: 1 day PAIN SCORE: 0/10 LOCATION: Bilateral chest FINDINGS: Single AP view of the chest. Moderate cardiac silhouette enlargement unchanged. Lungs are clear. No e vidence of pleural effusion or pneumothorax. CONCLUSION: 1. Chronic moderate cardiac silhouette enlargement. 2. No acute cardiomegaly disease identified. Andrés Bermudez MD on October 09, 2017 at 0:08 Board Certified Radiologist. This report was verified electronically.
[2017-10-09 00:12] LABS: BASOPHIL % 0.2 % (0.0-2.0); EOSINOPHIL % 0.1 % (0.0-4.0); HEMATOCRIT 42.6 % (39.0-51.0); HEMOGLOBIN 13.8 GM/DL (13.0-17.0); LYMPH % 4.6 % (9.0-44.0); LYMPHOCYTE # 0.9 TH/MM3 (1.0-4.8); MEAN CELL VOLUME 80.2 FL (80.0-100.0); MEAN CORPUSCULAR HGB CONC 32.4 % (32.0-36.0); MEAN PLATELET VOLUME 8.1 FL (7.0-11.0); MONO % 8.9 % (0.0-8.0); MONOCYTE # 1.7 TH/MM3 (0-0.9); NEUT % 86.2 % (16.0-70.0); PLATELET COUNT 233 TH/MM3 (150-450); RED BLOOD COUNT 5.31 MIL/MM3 (4.50-5.90); RED CELL DISTRIBUTION WIDTH 16.3 % (11.6-17.2); WHITE BLOOD COUNT 18.6 TH/MM3 (4.0-11.0)
[2017-10-09 00:22] LABS: PROTHROMBIN TIME - PATIENT 10.1 SEC (9.8-11.6)
[2017-10-09] MEDS ORDERED: SODIUM CHLOR 0.9% 1000 ML INJ 1,000 ML IV ONE ×2 (00:32→00:45)
[2017-10-09 00:42] LABS: AMORPHOUS SEDIMENT, URINE RARE; BACTERIA, URINE MANY /hpf; BILIRUBIN, URINE NEG (NEG); BLOOD, URINE MOD (NEG); GLUCOSE,URINE NEG (NEG); KETONE, URINE NEG (NEG); MUCUS URINE FEW /lpf (OCC); NITRITE,URINE NEG (NEG); PH, URINE 5.5 (5.0-8.5); SQUAMOUS EPITHELIAL CELL URINE <1 /hpf (0-5); URINE COLOR YELLOW (YELLW/STRAW); URINE LEUKOCYTE ESTERASE LARGE (NEG); WHITE BLOOD CELL CLUMPS OCC
[2017-10-09] MEDS ORDERED: cefTRIAXone INJ 1,000 MG in SODIUM CHLORIDE 0.9% INJ 100 ML IV ONE (00:45)
[2017-10-09] MEDS ORDERED: ACETAMINOPHEN 325 MG TAB PO ONE (00:45)
[2017-10-09 00:49] LABS: ALBUMIN 2.8 GM/DL (3.4-5.0); ALKALINE PHOSPHATASE 126 U/L (45-117); ALT (GPT) 17 U/L (12-78); AST (GOT) 22 U/L (15-37); BICARBONATE 26.9 MEQ/L (21.0-32.0); BLOOD UREA NITROGEN 11 MG/DL (7-18); CALCIUM 9.4 MG/DL (8.5-10.1); CHLORIDE 102 MEQ/L (98-107); CREATININE 0.96 MG/DL (0.60-1.30); GLOMERULAR FILTRATION RATE 79 ML/MIN (>89); GLUCOSE,RANDOM 115 MG/DL (74-106); SODIUM (NA) 140 MEQ/L (136-145); TOTAL BILIRUBIN ADULT 1.1 MG/DL (0.2-1.0); TOTAL PROTEIN 7.7 GM/DL (6.4-8.2); TROPONIN I LESS THAN 0.02 NG/ML (0.02-0.05)
[2017-10-09] MEDS: PIPERACIL-TAZO 4.5 GM PREMIX 100 ML IV SCH ×4 (01:30→18:42)
[2017-10-09] MEDS ORDERED: PIPERACIL-TAZO 4.5 GM PREMIX 100 ML IV ONE (01:30)
[2017-10-09 02:54] LABS: BANDS 2 % (0-6); LYMPHOCYTES 7 % (9-44); MONOCYTES 5 % (0-8); NEUTROPHIL # MANUAL DIFF 16.2 TH/MM3 (1.8-7.7); POLYS (SEG NEUTROPHILS) 85 % (16-70)
[2017-10-09] MEDS ORDERED: ONDANSETRON HCL 4 MG/2 ML VIAL IV PRN (09:00)
[2017-10-09] MEDS ORDERED: TAMSULOSIN HCL 0.4 MG CAP PO SCH (09:00)
[2017-10-09] MEDS ORDERED: ACETAMINOPHEN 325 MG TAB PO PRN (09:00)
--- NOTE | 2017-10-09 09:47 | HHI.HP ---
HPI Service [facility] Hospitalists Primary Care Physician Pedro Bautista M.D. Admission Diagnosis Sepsis, UTI Chief Complaint: Dysuria, urinary frequency, SOB Travel History International Travel<30 Days: No Contact w/Intl Traveler <30 Da: No Traveled to Known Affected Are: No History of Present Illness Mr. Reynolds is a 62 y/o male with HTN, hyperlipidemia, DM, depression/ anxiety, GERD, BPH, Left nephrectomy 1994 due to renal Ca. Pt was just discharged on 10/07/17 after an admission for obstructing right renal calculus and acute renal failure. During that admission he had a CT abdomen/pelvis () which noted s/p left nephrectomy, 9 mm calcified calculus in the Right UPJ with associated mild to moderate right sided hydronephrosis, 3 mm calyceal calculus in the inferior pole of the right kidney, a new 7 mm solid subpleural nodule in the left lung base and a enlarging cystic lesion in the mid right kidney. Urology was consulted. His renal function worsened on repeat labs on 10/05 with Cr 3.59. Pt underwent Cystoscopy with right retrograde pyelogram and right ureteral stent placement on 10/05/[address] Narvaez. Renal functions normalized on 10/07 to Cr 1.12. Mosley catheter was removed on 10/06 and pt urinated without difficulty. Pts urine culture did not gown out anything during that admission. Pt reports after returning home he had increased UOP and frequency and was urinating "every 10 minutes." He states that he started having dysuria last night with chills. This prompted his arrival to the ED on 10/08/17 for further evaluation. He had a noted fever of 100.3 in the ED. Pts UA was abnormal with large amount of leuk esterase and many bacteria. His WBC count is elevated to 18.8 at admission. Blood cultures were drawn and pt was given a dose of Rocephin and Zosyn in the ED. Pt does not want to continue Flomax and is refusing this. During his recent admission pt had increased O2 requirements and reported a dry cough. CXR (10/06) noted cardiomegaly. Pt has hx of DL and refused to use CPAP at home. Pt was noncompliant with using the simple mask during this hospitalization as well according to the nursing staff. Prior to discharge on 10/07 pt was saturating well with O2 sats in the mid to high 90s on RA while sitting up out of bed and was ambulating in the halls without difficulty. Pt reported after going home be started feeling more SOB than his baseline respiratory status. He states that the cough resolved and is no longer an issue. Pt currently on 2L NC and saturating well. CXR on 10/09 with chronic moderate cardiac silhouette enlargement, no acute cardiopulmonary disease identified. Review of Systems Constitutional: COMPLAINS OF: Fever, Chills Eyes: DENIES: Vision loss Ears, nose, mouth, throat: DENIES: Hearing loss Respiratory: COMPLAINS OF: Shortness of breath, DENIES: Cough, Sputum production Cardiovascular: DENIES: Chest pain, Palpitations, Lower Extremity Edema Gastrointestinal: COMPLAINS OF: Diarrhea, DENIES: Nausea, Vomiting Genitourinary: COMPLAINS OF: Urinary frequency, Dysuria Musculoskeletal: DENIES: Back pain Integumentary: DENIES: Rash Neurologic: DENIES: Headache Psychiatric: DENIES: Confusion Past Family Social History Past Medical History HTN Hyperlipidemia DM Depression/anxiety GERD BPH Hx of renal cancer s/p left nephrectomy 1994 Past Surgical History Left nephrectomy 1994 due to renal Ca right knee replacement x 5 [place] gastric bypass surgery mid cholecystectomy back surgery Reported Medications Flomax (Tamsulosin HCl) 0.4 Mg Cap 0.4 Mg PO Q12HR Ferrous Sulfate 325 Mg (65 Mg Iron) Tablet 325 Mg PO DAILY Trazodone (Trazodone HCl) 100 Mg Tablet 100 Mg PO HS Zantac (Ranitidine HCl) 150 Mg Tab 150 Mg PO DAILY Restoril (Temazepam) 7.5 Mg Cap 7.5 Mg PO HS PRN Triamterene-Hydrochlorothiazide 37.5-25 Mg Cap 1 Cap PO DAILY Sertraline (Sertraline HCl) 50 Mg Tab 50 Mg PO DAILY Metformin (Metformin HCl) 500 Mg Tab 500 Mg PO BIDPC With meals Lisinopril 40 Mg Tab 40 Mg PO DAILY Buspirone (Buspirone HCl) 15 Mg Tab 15 Mg PO BID Atorvastatin (Atorvastatin Calcium) 40 Mg Tab 40 Mg PO HS One Daily (Multiple Vitamin) 1 Tab 1 Tab PO DAILY Norvasc (Amlodipine Besylate) 10 Mg Tab 10 Mg PO DAILY Allergies: Coded Allergies: divalproex sodium (Verified Allergy, Intermediate, 10/08/17) daptomycin (Unverified Allergy, Unknown, 10/04/17) Uncoded Allergies: deptamycin (Allergy, Severe, 05/30/11) Family History Family medical history unknown patient is adopted Social History Former tobacco user 1.5 PPD x 30 + years quit in 1994 Denies any alcohol or illicit drug use Physical Exam Vital Signs Vital Signs Date Time Temp Pulse Resp B/P (MAP) Pulse Ox O2 Delivery O2 Flow Rate FiO2 10/09/17 08:27 97.9 115 20 124/69 (87) 95 10/09/17 02:24 98.4 70 20 121/64 (83) 91 10/09/17 02:10 86 20 146/84 (104) 96 10/09/17 00:33 100.3 10/08/17 23:58 97 Room Air 10/08/17 22:19 98.6 108 20 156/95 (115) 95 Physical Exam GENERAL: This is a well-nourished, well-developed patient, in no apparent distress. SKIN: No rashes, ecchymoses or lesions. Cool and dry. HEENT: Atraumatic. Normocephalic. No temporal or scalp tenderness. No scleral icterus. Airway patent. NECK: Trachea midline, supple, nontender. CARDIO: Regular. RESP: CTA bilaterally. No wheezes, rales, or rhonchi. ABD: +BS, soft, obese, non-tender, nondistended. EXT: Mild bilateral LE edema, chronic. No joint tenderness, effusion, or edema noted. No calf tenderness. NEURO: Awake and alert. Motor and sensory grossly within normal limits. Normal speech. Laboratory Laboratory Tests Test 10/08/17 23:55 10/09/17 00:20 10/09/17 00:40 White Blood Count 18.6 Red Blood Count 5.31 Hemoglobin 13.8 Hematocrit 42.6 Mean Corpuscular Volume 80.2 Mean Corpuscular Hemoglobin 26.0 Mean Corpuscular Hemoglobin Concent 32.4 Red Cell Distribution Width 16.3 Platelet Count 233 Mean Platelet Volume 8.1 Neutrophils (%) (Auto) 86.2 Lymphocytes (%) (Auto) 4.6 Monocytes (%) (Auto) 8.9 Eosinophils (%) (Auto) 0.1 Basophils (%) (Auto) 0.2 Neutrophils # (Auto) 16.0 Lymphocytes # (Auto) 0.9 Monocytes # (Auto) 1.7 Eosinophils # (Auto) 0.0 Basophils # (Auto) 0.0 CBC Comment AUTO DIFF Differential Total Cells Counted 100 Neutrophils % (Manual) 85 Band Neutrophils % 2 Lymphocytes % 7 Monocytes % 5 Eosinophils % 1 Neutrophils # (Manual) 16.2 Differential Comment FINAL DIFF MANUAL Platelet Estimate NORMAL Platelet Morphology Comment CLUMPED Prothrombin Time 10.1 Prothromb Time International Ratio 1.0 Activated Partial Thromboplast Time 26.1 Blood Urea Nitrogen 11 Creatinine 0.96 Random Glucose 115 Total Protein 7.7 Albumin 2.8 Calcium Level 9.4 Alkaline Phosphatase 126 Aspartate Amino Transf (AST/SGOT) 22 Alanine Aminotransferase (ALT/SGPT) 17 Total Bilirubin 1.1 Sodium Level 140 Potassium Level 3.5 Chloride Level 102 Carbon Dioxide Level 26.9 Anion Gap 11 Estimat Glomerular Filtration Rate 79 Total Creatine Kinase 77 Troponin I LESS THAN 0.02 B-Type Natriuretic Peptide 112 Urine Color YELLOW Urine Turbidity CLOUDY Urine pH 5.5 Urine Specific [place] 1.016 Urine Protein 100 Urine Glucose (UA) NEG Urine Ketones NEG Urine Occult Blood MOD Urine Nitrite NEG Urine Bilirubin NEG Urine Urobilinogen 2.0 Urine Leukocyte Esterase LARGE Urine RBC 75 Urine WBC Urine WBC Clumps OCC Urine Squamous Epithelial Cells <1 Urine Amorphous Sediment RARE Urine Bacteria MANY Urine Mucus FEW Microscopic Urinalysis Comment CULTURE INDICATED Lactic Acid Level 1.1 Date/Time Source Procedure Growth Status 10/09/17 00:40 Blood Peripheral Aerobic Blood Culture Pending Received 10/09/17 00:40 Blood Peripheral Anaerobic Blood Culture Pending Received 10/09/17 00:20 Urine Clean Catch Urine Culture Pending Worksheet Result Diagram: 10/08/17 2355 10/08/17 235 Imaging Last Impressions Chest X-Ray 10/08/172341 Signed Impressions: Service Date/Time: Sunday, October 08, 2017 23:52 - CONCLUSION: 1. Chronic moderate cardiac silhouette enlargement. 2. No acute cardiomegaly disease identified. MD Missy Yueni VTE Risk Assessment Jose VTE Risk Assessment: Mod/High Risk (score >= 2) Caprini Risk Assessment Model Point Value = 1 Point Value = 2 Point Value = 3 Point Value = 5 Age 41-60 Minor surgery BMI > 25 kg/m2 Swollen legs Varicose veins or History of unexplained or recurrent spontaneous Oral contraceptives or hormone replacement Sepsis (< 1 month) Serious lung disease, including pneumonia (< 1 month) Abnormal pulmonary function Acute myocardial infarction Congestive heart failure (< 1 month) History of inflammatory bowel disease Medical patient at bed rest Age 61-74 Arthroscopic surgery Major open surgery (> 45 min) Laparoscopic surgery (> 45 min) Malignancy Confined to bed (> 72 hours) Immobilizing plaster cast Central venous access Age >= 75 History of VTE Family history of VTE Factor V Leiden Prothrombin [id number] Lupus anticoagulant Anticardiolipin antibodies Elevated serum homocysteine Heparin-induced thrombocytopenia Other congenital or acquired thrombophilia Stroke (< 1 month) Elective arthroplasty Hip, pelvis, or leg fracture Acute spinal cord injury (< 1 month) Prophylaxis Regimen Total Risk Factor Score Risk Level Prophylaxis Regimen 0-1 Low Early ambulation 2 Moderate Order ONE of the following: *Sequential Compression Device (SCD) *Heparin 5000 units SQ BID 3-4 Higher Order ONE of the following medications: *Heparin 5000 units SQ TID *Enoxaparin/Lovenox 40 mg SQ daily (WT < 150 kg, CrCl > 30 mL/min) *Enoxaparin/Lovenox 30 mg SQ daily (WT < 150 kg, CrCl > 10-29 mL/min) *Enoxaparin/Lovenox 30 mg SQ BID (WT < 150 kg, CrCl > 30 mL/min) AND/OR *Sequential Compression Device (SCD) 5 or more Highest Order ONE of the following medications: *Heparin 5000 units SQ TID (Preferred with Epidurals) *Enoxaparin/Lovenox 40 mg SQ daily (WT < 150 kg, CrCl > 30 mL/min) *Enoxaparin/Lovenox 30 mg SQ daily (WT < 150 kg, CrCl > 10-29 mL/min) *Enoxaparin/Lovenox 30 mg SQ BID (WT < 150 kg, CrCl > 30 mL/min) AND *Sequential Compression Device (SCD) Assessment and Plan Problem List: (1) UTI (urinary tract infection) ICD Codes: N39.0 - Urinary tract infection, site not specified Status: Acute Plan: UTI Leukocytosis and fever, ?sepsis Renal calculus Acute renal failure, resolved - Pt is a 62 y/o male with HTN, hyperlipidemia, DM, depression/anxiety, GERD, BPH, Left nephrectomy 1994 due to renal Ca. - Pt was just discharged on 10/07/17 after an admission for obstructing right renal calculus and acute renal failure. CT abdomen/pelvis (10/04/17) --> Left nephrectomy, 9 mm calcified calculus in the Right UPJ with associated mild to moderate right sided hydronephrosis, 3 mm calyceal calculus in the inferior pole of the right kidney, a new 7 mm solid subpleural nodule in the left lung base. Recommend repeat exam in 3 month, and a enlarging cystic lesion in the mid right kidney. Recommend follow up scan/outpatient MRI. Subtle contour abnormality in the inferior pole of the right kidney, probable evolving hematoma left anterior abd wall. Pt received Dilaudid PRN for pain and Flomax 0.4 mg PO Q12H. Urology was consulted. His renal function worsened on repeat labs on 10/05 with Cr 3.59. Pt underwent Cystoscopy with right retrograde pyelogram and right ureteral stent placement on 10/05/[address] Narvaez. Repeat labs on 10/06 with improvement in Cr to 2.84 on 10/06 and renal functions normalized on 10/07 to Cr 1.12. Mosley catheter was removed on 10/06 and pt urinating without difficulty. Pts urine culture did not gown out anything during that admission. - Pt reports after returning home he had increased UOP and frequency and was urinating "every 10 minutes." He states that he started having dysuria last night and chills. - He had a noted fever of 100.3 in the ED - Pts UA was abnormal with urine culture pending. - His WBC count is elevated to 18.8 at admission - Blood cultures are pending - Pt was given a dose of Rocephin and Zosyn in the ED and we will continue the Zosyn - Pt does not want to continue Flomax and is refusing this - Monitor labs - Supportive care SOB Hypoxia Untreated DL - During his recent admission pt had increased O2 requirements and reported a dry cough. - CXR (10/06) --> Cardiomegaly. Pt has hx of DL and refused to use CPAP at home. Pt was noncompliant with using the simple mask during this hospitalization as well according to the nursing staff. - Prior to discharge on 10/07 pt was saturating well with O2 sats in the mid to high 90s on RA while sitting up out of bed and was ambulating in the halls without difficulty - Pt reported after going home be started feeling more SOB than his baseline respiratory status - Pt currently on 2L NC and saturating well. - No complaints of cough, congestion, or SOB currently. - CXR on 10/09 with chronic moderate cardiac silhouette enlargement, no acute cardiopulmonary disease identified. - Check 2D echo New lung nodule noted on left lung base - Pt will need outpatient CT Chest scan, recommended for 3 month followup, to be ordered by PCP Right renal cyst - Pt had an enlarging right renal cyst noted on CT Abd/pelvis during last admission. - Pt will need followup with Urology for outpatient MRI of the abdomen to better characterize right renal cyst. HTN - Continue Norvasc and Lisinopril, with parameters on the Lisinopril - Hold his home dose of Maxzide for now - Monitor BP and renal function closely Hyperlipidemia - Continue patient's home atorvastatin Diabetes mellitus - Cont. Metformin. - Monitor renal function Anxiety/depression - Continue patient's home sertraline 50 mg PO daily and Buspirone 15 mg daily (2) Leukocytosis ICD Codes: D72.829 - Elevated white blood cell count, unspecified Status: Acute (3) Fever ICD Codes: R50.9 - Fever, unspecified Status: Acute (4) Ureteral calculus, right ICD Codes: N20.1 - Calculus of ureter (5) Diabetes mellitus ICD Codes: E11.9 - Type 2 diabetes mellitus without complications Status: Chronic (6) HTN (hypertension) ICD Codes: I10 - Essential (primary) hypertension Status: Chronic (7) Hyperlipidemia ICD Codes: E78.5 - Hyperlipidemia, unspecified Status: Chronic Assessment and Plan Patient examined. Assessment and plan formulated with Candelaria Arboleda PA-C. I agree with the above. right nephrolithiasis s/p yinka and stent placement. recent urine cx negative but readmitted with fever and rigors. uti noted and r/o bacteremia. cont iv abx and adjust per cx's. lung clears but gets sob. has untreated dl. echo pending. Physician Certification 2 Midnight Certification Type: Admission for Inpatient Services Order for Inpatient Services The services are ordered in accordance with Medicare regulations or non- Medicare payer requirements, as applicable. In the case of services not specified as inpatient-only, they are appropriately provided as inpatient services in accordance with the 2-midnight benchmark. Estimated LOS (days): 3 3 days is the estimated time the patient will need to remain in the hospital, assuming treatment plan goals are met and no additional complications. Post-Hospital Plan: Not yet determined Problem Qualifiers (1) UTI (urinary tract infection): Qualified Codes: N39.0 - Urinary tract infection, site not specified; R31.9 - Hematuria, unspecified (2) Diabetes mellitus: Candelaria Arboleda Oct 09, 2017 09:47 Fredi Crawford MD Oct 09, 2017 12:54
[2017-10-09] MEDS ORDERED: TEMAZEPAM 7.5 MG CAP PO PRN (10:00)
[2017-10-09] MEDS ORDERED: TRIAMTERENE/HCTZ 37.5 MG/25 MG CAP PO SCH (10:00)
[2017-10-09] MEDS: SERTRALINE HCL 50 MG TAB PO SCH (11:43)
[2017-10-09] MEDS: LISINOPRIL 20 MG TAB PO SCH (11:44)
[2017-10-09] MEDS: FERROUS SULFATE 325 MG (65 MG ELEMENTAL IRON) TAB PO SCH (11:44)
[2017-10-09] MEDS: busPIRone HCL 5 MG TAB PO SCH ×2 (11:45→20:21)
[2017-10-09] MEDS: metFORMIN HCL 500 MG TAB PO SCH ×2 (11:45→18:42)
[2017-10-09] MEDS: FAMOTIDINE 20 MG TAB PO SCH ×2 (11:46→20:21)
--- NOTE | 2017-10-09 16:49 | EKG ---
Date Performed: 10/09/2017 Time Performed: 00:04:13 PTAGE: 62 years EKG: Sinus rhythm WITH FREQUENT VENTRICULAR PREMATURE COMPLEXES RIGHT BUNDLE BRANCH BLOCK LEFT ANTERIOR FASCICULAR BLO CK Compared to previous tracing, the PVCs are new ABNORMAL ECG PREVIOUS TRACING : 10/05/2017 11.36 DOCTOR: Fredi Ga Interpretating Date/Time 10/09/2017 16:48:36
[2017-10-09] MEDS: MULTIVITAMIN TAB PO SCH (17:03)
[2017-10-09] MEDS: traZODone HCL 100 MG TAB PO SCH (20:20)
[2017-10-09] MEDS: ATORVASTATIN 40 MG TAB PO SCH (20:21)
[2017-10-10 01:02] VITALS: BP 97/52; PULSE 68; RESP 17; TEMP 97.8; O2SAT 94
[2017-10-10] MEDS: PIPERACIL-TAZO 4.5 GM PREMIX 100 ML IV SCH ×4 (01:58→14:43)
[2017-10-10 04:04] VITALS: BP 107/63; PULSE 73; RESP 16; TEMP 98.6; O2SAT 92
[2017-10-10 06:23] LABS: AUTOMATED NEUTROPHIL # 33.3 TH/MM3 (1.8-7.7); BASOPHIL # 0.1 TH/MM3 (0-0.2); BASOPHIL % 0.4 % (0.0-2.0); EOSINOPHIL # 0.1 TH/MM3 (0-0.4); EOSINOPHIL % 0.2 % (0.0-4.0); HEMATOCRIT 38.5 % (39.0-51.0); HEMOGLOBIN 12.3 GM/DL (13.0-17.0); LYMPH % 5.8 % (9.0-44.0); LYMPHOCYTE # 2.2 TH/MM3 (1.0-4.8); MEAN CELL VOLUME 80.5 FL (80.0-100.0); MEAN CORPUSCULAR HEMOGLOBIN 25.8 PG (27.0-34.0); MEAN PLATELET VOLUME 8.3 FL (7.0-11.0); MONO % 5.9 % (0.0-8.0); MONOCYTE # 2.3 TH/MM3 (0-0.9); NEUT % 87.7 % (16.0-70.0); PLATELET COUNT 175 TH/MM3 (150-450); RED BLOOD COUNT 4.78 MIL/MM3 (4.50-5.90); RED CELL DISTRIBUTION WIDTH 16.6 % (11.6-17.2)
[2017-10-10 07:18] LABS: BICARBONATE 27.6 MEQ/L (21.0-32.0); CALCIUM 8.4 MG/DL (8.5-10.1); CREATININE 1.28 MG/DL (0.60-1.30); MAGNESIUM 1.5 MG/DL (1.5-2.5)
[2017-10-10] MEDS: LISINOPRIL 20 MG TAB PO SCH (09:00)
[2017-10-10 09:05] VITALS: BP 111/71; PULSE 73; RESP 16; TEMP 97.7; O2SAT 95
[2017-10-10 09:20] LABS: BANDS 17 % (0-6); LYMPHOCYTES 6 % (9-44); MONOCYTES 3 % (0-8); NEUTROPHIL # MANUAL DIFF 34.6 TH/MM3 (1.8-7.7); POLYS (SEG NEUTROPHILS) 74 % (16-70); TOXIC VACUOLATION PRESENT (NONE SEEN)
[2017-10-10 09:21] LABS: OVALOCYTES 1+ (NORMAL)
[2017-10-10] MEDS: FAMOTIDINE 20 MG TAB PO SCH ×2 (09:24→21:08)
[2017-10-10] MEDS: SERTRALINE HCL 50 MG TAB PO SCH (09:24)
[2017-10-10] MEDS: FERROUS SULFATE 325 MG (65 MG ELEMENTAL IRON) TAB PO SCH (09:24)
[2017-10-10] MEDS: metFORMIN HCL 500 MG TAB PO SCH ×2 (09:24→17:27)
[2017-10-10] MEDS: MULTIVITAMIN TAB PO SCH (09:24)
[2017-10-10] MEDS: busPIRone HCL 5 MG TAB PO SCH ×2 (09:25→21:08)
--- NOTE | 2017-10-10 09:37 | HHI.PR ---
Subjective Remarks Pt overall is feeling better today His urine is still dark No diarrhea yesterday or today Afebrile Objective Vitals Vital Signs Date Time Temp Pulse Resp B/P (MAP) Pulse Ox O2 Delivery O2 Flow Rate FiO2 10/10/17 09:05 97.7 73 16 111/71 (84) 95 10/10/17 04:04 98.6 73 16 107/63 (78) 92 10/10/17 01:02 97.8 68 17 97/52 (67) 94 10/09/17 20:12 98.6 71 17 129/63 (85) 96 10/09/17 16:34 98.2 100 18 128/68 (88) 96 10/09/17 12:26 98.2 110 20 128/68 (88) 98 10/10/17 10/10/17 10/11/17 15:00 23:00 07:00 Intake Total 100 ml Balance 100 ml Intake IV Total 100 ml Result Diagram: 10/10/17 0539 10/10/17 0539 Other Results Laboratory Tests Test 10/08/17 23:55 10/09/17 00:20 10/09/17 00:40 10/10/17 05:39 White Blood Count 18.6 TH/MM3 38.0 TH/MM3 Red Blood Count 5.31 MIL/MM3 4.78 MIL/MM3 Hemoglobin 13.8 GM/DL 12.3 GM/DL Hematocrit 42.6 % 38.5 % Mean Corpuscular Volume 80.2 FL 80.5 FL Mean Corpuscular Hemoglobin 26.0 PG 25.8 PG Mean Corpuscular Hemoglobin Concent 32.4 % 32.0 % Red Cell Distribution Width 16.3 % 16.6 % Platelet Count 233 TH/MM3 175 TH/MM3 Mean Platelet Volume 8.1 FL 8.3 FL Neutrophils (%) (Auto) 86.2 % 87.7 % Lymphocytes (%) (Auto) 4.6 % 5.8 % Monocytes (%) (Auto) 8.9 % 5.9 % Eosinophils (%) (Auto) 0.1 % 0.2 % Basophils (%) (Auto) 0.2 % 0.4 % Neutrophils # (Auto) 16.0 TH/MM3 33.3 TH/MM3 Lymphocytes # (Auto) 0.9 TH/MM3 2.2 TH/MM3 Monocytes # (Auto) 1.7 TH/MM3 2.3 TH/MM3 Eosinophils # (Auto) 0.0 TH/MM3 0.1 TH/MM3 Basophils # (Auto) 0.0 TH/MM3 0.1 TH/MM3 CBC Comment AUTO DIFF AUTO DIFF Differential Total Cells Counted 100 Neutrophils % (Manual) 85 % Band Neutrophils % 2 % Lymphocytes % 7 % Monocytes % 5 % Eosinophils % 1 % Neutrophils # (Manual) 16.2 TH/MM3 Differential Comment FINAL DIFF MANUAL Platelet Estimate NORMAL Platelet Morphology Comment CLUMPED Prothrombin Time 10.1 SEC Prothromb Time International Ratio 1.0 RATIO Activated Partial Thromboplast Time 26.1 SEC Blood Urea Nitrogen 11 MG/DL 20 MG/DL Creatinine 0.96 MG/DL 1.28 MG/DL Random Glucose 115 MG/DL 95 MG/DL Total Protein 7.7 GM/DL Albumin 2.8 GM/DL Calcium Level 9.4 MG/DL 8.4 MG/DL Alkaline Phosphatase 126 U/L Aspartate Amino Transf (AST/SGOT) 22 U/L Alanine Aminotransferase (ALT/SGPT) 17 U/L Total Bilirubin 1.1 MG/DL Sodium Level 140 MEQ/L 140 MEQ/L Potassium Level 3.5 MEQ/L 3.1 MEQ/L Chloride Level 102 MEQ/L 105 MEQ/L Carbon Dioxide Level 26.9 MEQ/L 27.6 MEQ/L Anion Gap 11 MEQ/L 7 MEQ/L Estimat Glomerular Filtration Rate 79 ML/MIN 57 ML/MIN Total Creatine Kinase 77 U/L Troponin I LESS THAN 0.02 NG/ML B-Type Natriuretic Peptide 112 PG/ML Urine Color YELLOW Urine Turbidity CLOUDY Urine pH 5.5 Urine Specific [place] 1.016 Urine Protein 100 mg/dL Urine Glucose (UA) NEG mg/dL Urine Ketones NEG mg/dL Urine Occult Blood MOD Urine Nitrite NEG Urine Bilirubin NEG Urine Urobilinogen 2.0 MG/DL Urine Leukocyte Esterase LARGE Urine RBC 75 /hpf Urine WBC /hpf Urine WBC Clumps OCC Urine Squamous Epithelial Cells <1 /hpf Urine Amorphous Sediment RARE Urine Bacteria MANY /hpf Urine Mucus FEW /lpf Microscopic Urinalysis Comment CULTURE INDICATED Lactic Acid Level 1.1 mmol/L Magnesium Level 1.5 MG/DL Imaging Last Impressions Chest X-Ray 10/08/17 5239 Signed Impressions: Service Date/Time: Sunday, October 08, 2017 23:52 - CONCLUSION: 1. Chronic moderate cardiac silhouette enlargement. 2. No acute cardiomegaly disease identified. Andrés Bermudez MD Objective Remarks GENERAL: This is an obese male patient, in no apparent distress. CARDIO: Regular. RESP: CTA bilaterally. No wheezes, rales, or rhonchi. ABD: +BS, soft, obese, non-tender, nondistended. EXT: Mild bilateral LE edema, chronic. A/P Problem List: (1) UTI (urinary tract infection) ICD Codes: N39.0 - Urinary tract infection, site not specified Status: Acute Plan: UTI Leukocytosis and fever, ?sepsis Renal calculus Acute renal failure, resolved - Pt is a 62 y/o male with HTN, hyperlipidemia, DM, depression/anxiety, GERD, BPH, Left nephrectomy 1994 due to renal Ca. - Pt was just discharged on 10/07/17 after an admission for obstructing right renal calculus and acute renal failure. CT abdomen/pelvis (10/04/17) --> Left nephrectomy, 9 mm calcified calculus in the Right UPJ with associated mild to moderate right sided hydronephrosis, 3 mm calyceal calculus in the inferior pole of the right kidney, a new 7 mm solid subpleural nodule in the left lung base. Recommend repeat exam in 3 month, and a enlarging cystic lesion in the mid right kidney. Recommend follow up scan/outpatient MRI. Subtle contour abnormality in the inferior pole of the right kidney, probable evolving hematoma left anterior abd wall. Pt received Dilaudid PRN for pain and Flomax 0.4 mg PO Q12H. Urology was consulted. His renal function worsened on repeat labs on 10/05 with Cr 3.59. Pt underwent Cystoscopy with right retrograde pyelogram and right ureteral stent placement on 10/05/[address] Narvaez. Repeat labs on 10/06 with improvement in Cr to 2.84 on 10/06 and renal functions normalized on 10/07 to Cr 1.12. Mosley catheter was removed on 10/06 and pt urinating without difficulty. Pts urine culture did not gown out anything during that admission. - Pt reports after returning home he had increased UOP and frequency and was urinating "every 10 minutes." He states that he started having dysuria last night and chills. - He had a noted fever of 100.3 in the ED - Pts UA was abnormal with urine culture pending. - Blood cultures are pending - Pt was given a dose of Rocephin and Zosyn in the ED and we will continue the Zosyn - His WBC count is elevated to 18.8 at admission and repeat labs today WBC count went up to 38 - We will give a dose of Vancomycin today for GNR coverage but will proceed cautiously as pt only has one kidney - Consult ID - If pt has any diarrhea, send stool for C. diff. - Pt does not want to continue Flomax and is refusing this - Monitor labs - Supportive care SOB Hypoxia Untreated DL - During his recent admission pt had increased O2 requirements and reported a dry cough. - CXR (10/06) --> Cardiomegaly. Pt has hx of DL and refused to use CPAP at home. Pt was noncompliant with using the simple mask during this hospitalization as well according to the nursing staff. - Prior to discharge on 10/07 pt was saturating well with O2 sats in the mid to high 90s on RA while sitting up out of bed and was ambulating in the halls without difficulty - Pt reported after going home be started feeling more SOB than his baseline respiratory status - Pt currently on 2L NC and saturating well. - No complaints of cough, congestion, or SOB currently. - CXR on 10/09 with chronic moderate cardiac silhouette enlargement, no acute cardiopulmonary disease identified. - Check 2D echo New lung nodule noted on left lung base - Pt will need outpatient CT Chest scan, recommended for 3 month followup, to be ordered by PCP Right renal cyst - Pt had an enlarging right renal cyst noted on CT Abd/pelvis during last admission. - Pt will need followup with Urology for outpatient MRI of the abdomen to better characterize right renal cyst. HTN - Continue Norvasc and Lisinopril, with parameters on the Lisinopril - Hold his home dose of Maxzide for now - Monitor BP and renal function closely Hyperlipidemia - Continue patient's home atorvastatin Diabetes mellitus - Cont. Metformin. - Monitor renal function Anxiety/depression - Continue patient's home sertraline 50 mg PO daily and Buspirone 15 mg daily (2) Leukocytosis ICD Codes: D72.829 - Elevated white blood cell count, unspecified Status: Acute (3) Fever ICD Codes: R50.9 - Fever, unspecified Status: Acute (4) Ureteral calculus, right ICD Codes: N20.1 - Calculus of ureter (5) Diabetes mellitus ICD Codes: E11.9 - Type 2 diabetes mellitus without complications Status: Chronic (6) HTN (hypertension) ICD Codes: I10 - Essential (primary) hypertension Status: Chronic (7) Hyperlipidemia ICD Codes: E78.5 - Hyperlipidemia, unspecified Status: Chronic Assessment and Plan Patient examined. Assessment and plan formulated with Shauna Robles PA-C. I agree with the above. Problem Qualifiers (1) UTI (urinary tract infection): Qualified Codes: N39.0 - Urinary tract infection, site not specified; R31.9 - Hematuria, unspecified (2) Diabetes mellitus: Candelaria Arboleda Oct 10, 2017 09:37 Julio Fitch DO Oct 14, 2017 22:38
[2017-10-10] MEDS ORDERED: Vancomycin Consult Pharmacy 1 EA OTHER SCH (10:15)
[2017-10-10] MEDS ORDERED: VANCOMYCIN INJ 500 MG in SODIUM CHLORIDE 0.9% INJ 100 ML IV ONE (10:15)
[2017-10-10 11:45] VITALS: BP 109/71; PULSE 79; RESP 16; TEMP 98.6; O2SAT 95
[2017-10-10] MEDS ORDERED: VANCOMYCIN INJ 1,500 MG in SODIUM CHLORID 0.9% 500 ML INJ 500 ML IV ONE (12:00)
[2017-10-10] MEDS: POTASSIUM CHLORIDE 10 MEQ CONTROLLED RELEASE TAB PO SCH ×2 (12:52→17:28)
--- NOTE | 2017-10-10 13:37 | MB ---
cc: Geraldo Bell MD DATE: 10/10/2017 REQUESTING PHYSICIAN: Dr. Fitch. REASON FOR VISIT: Complicated urinary tract infection. Bacteremia versus contaminant. Single kidney. HISTORY OF PRESENT ILLNESS: This is a 62-year-old white male who was recently hospitalized and noted to have a right-sided kidney stone. The patient has a solitary right kidney. He underwent placement of a ureteral stent on 10/05/2017 at the right ureteral system. The patient was discharged from the hospital on 10/07/2017. After discharge, he was having frequent urination and developed shortness of breath and presented to the emergency department again yesterday. On this presentation, his temperature was 100.3 maximum and his white count was elevated. The white count was 18.6 on 10/08/2017 and today it is 38.0. He states that he has very little pain in the right flank approximately 2/10 scale. The patient had a urinalysis which showed 75 red cells and a large amount of leukocyte esterase and innumerable white cells. Urine culture has gram-negative rods. Blood cultures were taken and one set of the blood culture has one bottle consisting of gram-negative rods and pleomorphic gram-positive rods and another bottle has gram-positive cocci. The second set has no growth in 1 day. The patient states that he feels well now. He states that he was very cold when he came to the emergency department and could not get warm easily. He is currently on 2 liters of oxygen via nasal cannula. A chest x-ray showed chronic moderate cardiac silhouette enlargement. He denies nausea, vomiting, abdominal pain or dysuria. The patient notes that prior to the stent placement, he was having difficulty passing urine. PAST MEDICAL HISTORY: Hypertension, diabetes mellitus, hyperlipidemia, gastroesophageal reflux disease, benign prostatic hypertrophy, left nephrectomy in 1994 for treatment of renal cancer, marii-en-Y gastric bypass surgery, cholecystectomy, history of back surgery, history of knee replacements. ALLERGIES: DAPTOMYCIN, DIVALPROEX SODIUM. MEDICATIONS: 1. Vancomycin. 2. Piperacillin/tazobactam. 3. Lipitor. 4. Potassium. 5. Desyrel. 6. Norvasc. 7. BuSpar. 8. Ferrous sulfate. 9. Glucophage. 10. Theragran. 11. Zoloft. 12. Prinivil. 13. Pepcid. 14. Restoril. SOCIAL HISTORY: The patient is . No tobacco, no alcohol, no illicit drugs. He is a former smoker. FAMILY HISTORY: Noncontributory. REVIEW OF SYSTEMS: Pertinent as mentioned above in the history of present illness. PHYSICAL EXAMINATION: GENERAL: This is a moderately obese male who is awake and alert. He is in no acute distress. VITAL SIGNS: Temperature 98.6, BP 109/71, respirations 16, heart rate 79. HEENT: Head, atraumatic. Extraocular movements grossly intact. Pupils reactive to light. No icterus. Oropharynx, moist mucosa. No lesions. NECK: Supple without adenopathy. LUNGS: Clear breath sounds bilaterally. HEART: Regular S1, S2. No murmurs, rubs or gallops. ABDOMEN: Bowel sounds present, obese, soft. No tenderness appreciated. RECTAL: Not performed. EXTREMITIES: No clubbing or cyanosis. The patient has a band of mild erythema along the right mid tibia. SKIN: No rash. NEUROLOGIC: No gross focal finding. PSYCHIATRIC: The patient is calm and cooperative. LABORATORY DATA: WBC is 38.0, platelets 175, 74% neutrophils, 17% bands, 6% lymphocytes, hemoglobin 12.3. Creatinine 1.28, BUN 20, estimated GFR 57, sodium 140. IMPRESSIONS: 1. Urinary tract infection complicated by a urinary stent. Gram-negative evelyn upon culture. Identity pending. 2. Marked leukocytosis. 3. Positive blood culture with mixed bacteria including gram-negative evelyn and gram-positive cocci. 4. Acute kidney disease in a patient with a history of solitary kidney probably secondary to dehydration. RECOMMENDATIONS: 1. Discontinue vancomycin. I think the blood culture is likely contamination. 2. Continue piperacillin/tazobactam and follow the urine culture identity and sensitivity of the gram-negative evelyn. 3. Monitor white blood cell count. 4. Monitor clinical status. 5. Monitor renal function. 6. Additional recommendations to follow depending on the patient's clinical response and culture data. Thank you for this consultation. I will follow the patient's progress. Geraldo Bell MD FFD/DL , 01:06 PM , 01:36 PM
[2017-10-10 16:15] VITALS: BP 102/55; PULSE 75; RESP 18; TEMP 98.1; O2SAT 96
[2017-10-10] MEDS ORDERED: WITCH HAZEL 50%/GLYCERIN 12.5% 40 PAD JAR TOPICAL PRN (16:15)
[2017-10-10 20:00] VITALS: BP 119/70; PULSE 72; RESP 18; TEMP 97.8; O2SAT 97
[2017-10-10] MEDS: traZODone HCL 100 MG TAB PO SCH (21:08)
[2017-10-10] MEDS: ATORVASTATIN 40 MG TAB PO SCH (21:08)
[2017-10-11 00:50] VITALS: BP 113/68; PULSE 68; RESP 18; TEMP 98.2; O2SAT 96
[2017-10-11] MEDS: PIPERACIL-TAZO 4.5 GM PREMIX 100 ML IV SCH ×4 (02:02→20:58)
[2017-10-11 04:40] VITALS: BP 127/80; PULSE 74; RESP 18; TEMP 97.9; O2SAT 95
[2017-10-11 05:32] LABS: AUTOMATED NEUTROPHIL # 12.7 TH/MM3 (1.8-7.7); BASOPHIL # 0.2 TH/MM3 (0-0.2); BASOPHIL % 0.9 % (0.0-2.0); EOSINOPHIL # 0.4 TH/MM3 (0-0.4); EOSINOPHIL % 2.6 % (0.0-4.0); HEMATOCRIT 36.4 % (39.0-51.0); HEMOGLOBIN 11.8 GM/DL (13.0-17.0); LYMPH % 10.7 % (9.0-44.0); LYMPHOCYTE # 1.7 TH/MM3 (1.0-4.8); MEAN CELL VOLUME 80.6 FL (80.0-100.0); MEAN CORPUSCULAR HEMOGLOBIN 26.2 PG (27.0-34.0); MEAN CORPUSCULAR HGB CONC 32.5 % (32.0-36.0); MEAN PLATELET VOLUME 8.2 FL (7.0-11.0); MONO % 6.6 % (0.0-8.0); MONOCYTE # 1.1 TH/MM3 (0-0.9); NEUT % 79.2 % (16.0-70.0); PLATELET COUNT 168 TH/MM3 (150-450); RED BLOOD COUNT 4.52 MIL/MM3 (4.50-5.90); RED CELL DISTRIBUTION WIDTH 16.9 % (11.6-17.2); WHITE BLOOD COUNT 16.1 TH/MM3 (4.0-11.0)
[2017-10-11 05:51] LABS: BICARBONATE 27.3 MEQ/L (21.0-32.0); BLOOD UREA NITROGEN 21 MG/DL (7-18); CALCIUM 8.2 MG/DL (8.5-10.1); CHLORIDE 110 MEQ/L (98-107); GLOMERULAR FILTRATION RATE 51 ML/MIN (>89); GLUCOSE,RANDOM 91 MG/DL (74-106); MAGNESIUM 1.8 MG/DL (1.5-2.5); SODIUM (NA) 143 MEQ/L (136-145)
[2017-10-11 05:53] LABS: RANDOM VANCOMYCIN LESS THAN 0.8 COMMENT
[2017-10-11 08:00] VITALS: BP 138/78; PULSE 69; RESP 20; TEMP 98.2; O2SAT 97
[2017-10-11] MEDS: MULTIVITAMIN TAB PO SCH (09:00)
[2017-10-11] MEDS: LISINOPRIL 20 MG TAB PO SCH (09:05)
[2017-10-11] MEDS: metFORMIN HCL 500 MG TAB PO SCH ×2 (09:05→17:54)
[2017-10-11] MEDS: SERTRALINE HCL 50 MG TAB PO SCH (09:05)
[2017-10-11] MEDS: FAMOTIDINE 20 MG TAB PO SCH ×2 (09:06→21:03)
[2017-10-11] MEDS: busPIRone HCL 5 MG TAB PO SCH ×2 (09:14→21:02)
[2017-10-11] MEDS: FERROUS SULFATE 325 MG (65 MG ELEMENTAL IRON) TAB PO SCH (09:14)
--- NOTE | 2017-10-11 11:42 | HHI.PR ---
Subjective Remarks No new complaints Pt urinating ok. Objective Vitals Vital Signs Date Time Temp Pulse Resp B/P (MAP) Pulse Ox O2 Delivery O2 Flow Rate FiO2 10/11/17 08:00 98.2 69 20 138/78 (98) 97 10/11/17 04:40 97.9 74 18 127/80 (96) 95 10/11/17 00:50 98.2 68 18 113/68 (83) 96 10/10/17 20:00 97.8 72 18 119/70 (86) 97 10/10/17 16:15 98.1 75 18 102/55 (71) 96 10/10/17 11:45 98.6 79 16 109/71 (84) 95 Result Diagram: 10/11/17 0500 10/11/17 0500 Other Results Laboratory Tests Test 10/10/17 05:39 10/11/17 05:00 White Blood Count 38.0 TH/MM3 16.1 TH/MM3 Red Blood Count 4.78 MIL/MM3 4.52 MIL/MM3 Hemoglobin 12.3 GM/DL 11.8 GM/DL Hematocrit 38.5 % 36.4 % Mean Corpuscular Volume 80.5 FL 80.6 FL Mean Corpuscular Hemoglobin 25.8 PG 26.2 PG Mean Corpuscular Hemoglobin Concent 32.0 % 32.5 % Red Cell Distribution Width 16.6 % 16.9 % Platelet Count 175 TH/MM3 168 TH/MM3 Mean Platelet Volume 8.3 FL 8.2 FL Neutrophils (%) (Auto) 87.7 % 79.2 % Lymphocytes (%) (Auto) 5.8 % 10.7 % Monocytes (%) (Auto) 5.9 % 6.6 % Eosinophils (%) (Auto) 0.2 % 2.6 % Basophils (%) (Auto) 0.4 % 0.9 % Neutrophils # (Auto) 33.3 TH/MM3 12.7 TH/MM3 Lymphocytes # (Auto) 2.2 TH/MM3 1.7 TH/MM3 Monocytes # (Auto) 2.3 TH/MM3 1.1 TH/MM3 Eosinophils # (Auto) 0.1 TH/MM3 0.4 TH/MM3 Basophils # (Auto) 0.1 TH/MM3 0.2 TH/MM3 CBC Comment AUTO DIFF DIFF FINAL Differential Total Cells Counted 100 Neutrophils % (Manual) 74 % Band Neutrophils % 17 % Lymphocytes % 6 % Monocytes % 3 % Neutrophils # (Manual) 34.6 TH/MM3 Differential Comment FINAL DIFF MANUAL Toxic Vacuolation PRESENT Platelet Estimate NORMAL Platelet Morphology Comment NORMAL Ovalocytes 1+ Blood Urea Nitrogen 20 MG/DL 21 MG/DL Creatinine 1.28 MG/DL 1.40 MG/DL Random Glucose 95 MG/DL 91 MG/DL Calcium Level 8.4 MG/DL 8.2 MG/DL Magnesium Level 1.5 MG/DL 1.8 MG/DL Sodium Level 140 MEQ/L 143 MEQ/L Potassium Level 3.1 MEQ/L 3.4 MEQ/L Chloride Level 105 MEQ/L 110 MEQ/L Carbon Dioxide Level 27.6 MEQ/L 27.3 MEQ/L Anion Gap 7 MEQ/L 6 MEQ/L Estimat Glomerular Filtration Rate 57 ML/MIN 51 ML/MIN Random Vancomycin Level LESS THAN 0.8 COMMENT Imaging Last Impressions Chest X-Ray 10/08/17 [id number] Signed Impressions: Service Date/Time: Sunday, October 08, 2017 23:52 - CONCLUSION: 1. Chronic moderate cardiac silhouette enlargement. 2. No acute cardiomegaly disease identified. Andrés Bermudez MD Objective Remarks GENERAL: This is an obese male patient, in no apparent distress. CARDIO: Regular. RESP: CTA bilaterally. No wheezes, rales, or rhonchi. ABD: +BS, soft, obese, non-tender, nondistended. EXT: Mild bilateral LE edema, chronic. Chronic wound on the right posterior calf , no drainage or erythema A/P Problem List: (1) UTI (urinary tract infection) ICD Codes: N39.0 - Urinary tract infection, site not specified Status: Acute Plan: UTI Leukocytosis and fever, possible urosepsis Renal calculus Acute renal failure, resolved - Pt is a 62 y/o male with HTN, hyperlipidemia, DM, depression/anxiety, GERD, BPH, Left nephrectomy 1994 due to renal Ca. - Pt was just discharged on 10/07/17 after an admission for obstructing right renal calculus and acute renal failure. CT abdomen/pelvis (10/04/17) --> Left nephrectomy, 9 mm calcified calculus in the Right UPJ with associated mild to moderate right sided hydronephrosis, 3 mm calyceal calculus in the inferior pole of the right kidney, a new 7 mm solid subpleural nodule in the left lung base. Recommend repeat exam in 3 month, and a enlarging cystic lesion in the mid right kidney. Recommend follow up scan/outpatient MRI. Subtle contour abnormality in the inferior pole of the right kidney, probable evolving hematoma left anterior abd wall. Pt received Dilaudid PRN for pain and Flomax 0.4 mg PO Q12H. Urology was consulted. His renal function worsened on repeat labs on 10/05 with Cr 3.59. Pt underwent Cystoscopy with right retrograde pyelogram and right ureteral stent placement on 10/05/[address] Narvaez. Repeat labs on 10/06 with improvement in Cr to 2.84 on 10/06 and renal functions normalized on 10/07 to Cr 1.12. Mosley catheter was removed on 10/06 and pt urinating without difficulty. Pts urine culture did not gown out anything during that admission. - Pt reports after returning home he had increased UOP and frequency and was urinating "every 10 minutes." He states that he started having dysuria last night and chills. - He had a noted fever of 100.3 in the ED - Pts UA was abnormal with urine culture is growing E. coli - Blood cultures growing E. coli, Pleomorphic gram positive rods and Leticia Epi - Pt was given a dose of Rocephin and Zosyn in the ED and was continued on the Zosyn - His WBC count is elevated to 18.8 at admission and repeat labs today WBC count went up to 38 - Repeat labs on 10/11/17 with improvement in WBC count to 16.1 - Appreciate ID Consult - Repeat blood cultures on 10/11 - If pt has any diarrhea, send stool for C. diff. - Pt does not want to continue Flomax and is refusing this - Monitor labs - Supportive care SOB Hypoxia Untreated DL - During his recent admission pt had increased O2 requirements and reported a dry cough. - CXR (10/06) --> Cardiomegaly. Pt has hx of DL and refused to use CPAP at home. Pt was noncompliant with using the simple mask during this hospitalization as well according to the nursing staff. - Prior to discharge on 10/07 pt was saturating well with O2 sats in the mid to high 90s on RA while sitting up out of bed and was ambulating in the halls without difficulty - Pt reported after going home be started feeling more SOB than his baseline respiratory status - Pt currently on 2L NC and saturating well. - No complaints of cough, congestion, or SOB currently. - CXR on 10/09 with chronic moderate cardiac silhouette enlargement, no acute cardiopulmonary disease identified. - 2D echo is pending New lung nodule noted on left lung base - Pt will need outpatient CT Chest scan, recommended for 3 month followup, to be ordered by PCP Right renal cyst - Pt had an enlarging right renal cyst noted on CT Abd/pelvis during last admission. - Pt will need followup with Urology for outpatient MRI of the abdomen to better characterize right renal cyst. HTN - Pt had been continued Norvasc and Lisinopril, with parameters on the Lisinopril - Hold his home dose of Maxzide for now - Hold Lisinopril as Cr increased to 1.40 today - Monitor BP and renal function closely Hyperlipidemia - Continue patient's home atorvastatin Diabetes mellitus - Cont. Metformin. - Monitor renal function Anxiety/depression - Continue patient's home sertraline 50 mg PO daily and Buspirone 15 mg daily (2) Leukocytosis ICD Codes: D72.829 - Elevated white blood cell count, unspecified Status: Acute (3) Fever ICD Codes: R50.9 - Fever, unspecified Status: Acute (4) Ureteral calculus, right ICD Codes: N20.1 - Calculus of ureter (5) Diabetes mellitus ICD Codes: E11.9 - Type 2 diabetes mellitus without complications Status: Chronic (6) HTN (hypertension) ICD Codes: I10 - Essential (primary) hypertension Status: Chronic (7) Hyperlipidemia ICD Codes: E78.5 - Hyperlipidemia, unspecified Status: Chronic Assessment and Plan Patient examined. Assessment and plan formulated with Shauna Robles PA-C. I agree with the above. Problem Qualifiers (1) UTI (urinary tract infection): Qualified Codes: N39.0 - Urinary tract infection, site not specified; R31.9 - Hematuria, unspecified (2) Diabetes mellitus: Candelaria Arboleda Oct 11, 2017 11:42 Julio Fitch DO Oct 14, 2017 22:38
[2017-10-11 12:00] VITALS: BP 132/76; PULSE 68; RESP 20; TEMP 97.7; TEMP 97.8; O2SAT 94
[2017-10-11] MEDS ORDERED: POTASSIUM CHLORIDE 20 MEQ CONTROLLED RELEASE TAB PO ONE (12:00)
[2017-10-11 16:00] VITALS: BP_SYST 137; BP_SYST 138; BP_DIAS 80; PULSE 63; RESP 20; TEMP 97.3; O2SAT 95
[2017-10-11 20:00] VITALS: BP 121/82; PULSE 69; RESP 18; TEMP 97.9; O2SAT 93
[2017-10-11] MEDS: BENZONATATE 100 MG CAP PO PRN (21:02)
[2017-10-11] MEDS: ATORVASTATIN 40 MG TAB PO SCH (21:03)
[2017-10-11] MEDS: traZODone HCL 100 MG TAB PO SCH (21:03)
[2017-10-12] VITALS: BP 104/60; PULSE 58; RESP 18; TEMP 97.5; O2SAT 95
[2017-10-12] MEDS: guaiFENesin/CODEINE SYRUP 200 MG/20 MG/10 ML CUP PO PRN ×4 (01:57→19:26)
[2017-10-12] MEDS: PIPERACIL-TAZO 4.5 GM PREMIX 100 ML IV SCH ×4 (01:57→18:59)
[2017-10-12 04:00] VITALS: BP 138/83; PULSE 63; RESP 18; TEMP 97.9; O2SAT 95
[2017-10-12 07:04] LABS: AUTOMATED NEUTROPHIL # 5.9 TH/MM3 (1.8-7.7); BASOPHIL # 0.1 TH/MM3 (0-0.2); EOSINOPHIL # 0.4 TH/MM3 (0-0.4); EOSINOPHIL % 4.7 % (0.0-4.0); HEMATOCRIT 38.2 % (39.0-51.0); HEMOGLOBIN 12.5 GM/DL (13.0-17.0); LYMPHOCYTE # 1.6 TH/MM3 (1.0-4.8); MEAN CELL VOLUME 81.1 FL (80.0-100.0); MEAN CORPUSCULAR HEMOGLOBIN 26.5 PG (27.0-34.0); MEAN CORPUSCULAR HGB CONC 32.6 % (32.0-36.0); MEAN PLATELET VOLUME 8.4 FL (7.0-11.0); MONO % 9.4 % (0.0-8.0); MONOCYTE # 0.8 TH/MM3 (0-0.9); NEUT % 66.9 % (16.0-70.0); PLATELET COUNT 185 TH/MM3 (150-450); RED BLOOD COUNT 4.71 MIL/MM3 (4.50-5.90); RED CELL DISTRIBUTION WIDTH 16.7 % (11.6-17.2); WHITE BLOOD COUNT 8.8 TH/MM3 (4.0-11.0)
[2017-10-12 07:26] LABS: BICARBONATE 28.4 MEQ/L (21.0-32.0); CALCIUM 8.5 MG/DL (8.5-10.1); CREATININE 1.3 MG/DL (0.60-1.30); MAGNESIUM 1.8 MG/DL (1.5-2.5)
[2017-10-12 08:00] VITALS: BP 138/70; PULSE 60; RESP 20; TEMP 98.1; O2SAT 96
[2017-10-12] MEDS: busPIRone HCL 5 MG TAB PO SCH ×2 (09:21→20:36)
[2017-10-12] MEDS: FAMOTIDINE 20 MG TAB PO SCH ×2 (09:21→20:36)
[2017-10-12] MEDS: metFORMIN HCL 500 MG TAB PO SCH ×2 (09:21→18:59)
[2017-10-12] MEDS: FERROUS SULFATE 325 MG (65 MG ELEMENTAL IRON) TAB PO SCH (09:21)
[2017-10-12] MEDS: SERTRALINE HCL 50 MG TAB PO SCH (09:22)
[2017-10-12] MEDS: MULTIVITAMIN TAB PO SCH (09:22)
[2017-10-12 12:00] VITALS: BP 148/69; PULSE 69; RESP 20; TEMP 98.8; O2SAT 96
--- NOTE | 2017-10-12 12:56 | HHI.PR ---
Subjective Remarks No new complaints. Objective Vitals Vital Signs Date Time Temp Pulse Resp B/P (MAP) Pulse Ox O2 Delivery O2 Flow Rate FiO2 10/12/17 08:00 Nasal Cannula 2.00 10/12/17 04:00 97.9 63 18 138/83 (101) 95 10/12/17 00:00 97.5 58 18 104/60 (75) 95 10/11/17 20:00 97.9 69 18 121/82 (95) 93 10/11/17 16:00 97.3 63 20 137/80 (99) 95 10/11/17 16:00 97.3 63 20 138/80 (99) 95 Result Diagram: 10/12/17 0525 10/12/17 0525 Imaging Last Impressions Chest X-Ray 10/08/172 Signed Impressions: Service Date/Time: Sunday, October 08, 2017 23:52 - CONCLUSION: 1. Chronic moderate cardiac silhouette enlargement. 2. No acute cardiomegaly disease identified. Andrés Bermudez MD Objective Remarks GENERAL: This is an obese male patient, in no apparent distress. CARDIO: Regular. RESP: CTA bilaterally. No wheezes, rales, or rhonchi. ABD: +BS, soft, obese, non-tender, nondistended. EXT: Mild bilateral LE edema, chronic. Chronic wound on the right posterior calf , no drainage or erythema A/P Problem List: (1) UTI (urinary tract infection) ICD Codes: N39.0 - Urinary tract infection, site not specified Status: Acute Plan: UTI Leukocytosis and fever, possible urosepsis Renal calculus Acute renal failure, resolved - Pt is a 62 y/o male with HTN, hyperlipidemia, DM, depression/anxiety, GERD, BPH, Left nephrectomy 1994 due to renal Ca. - Pt was just discharged on 10/07/17 after an admission for obstructing right renal calculus and acute renal failure. CT abdomen/pelvis (10/04/17) --> Left nephrectomy, 9 mm calcified calculus in the Right UPJ with associated mild to moderate right sided hydronephrosis, 3 mm calyceal calculus in the inferior pole of the right kidney, a new 7 mm solid subpleural nodule in the left lung base. Recommend repeat exam in 3 month, and a enlarging cystic lesion in the mid right kidney. Recommend follow up scan/outpatient MRI. Subtle contour abnormality in the inferior pole of the right kidney, probable evolving hematoma left anterior abd wall. Pt received Dilaudid PRN for pain and Flomax 0.4 mg PO Q12H. Urology was consulted. His renal function worsened on repeat labs on 10/05 with Cr 3.59. Pt underwent Cystoscopy with right retrograde pyelogram and right ureteral stent placement on 10/05/[address] Narvaez. Repeat labs on 10/06 with improvement in Cr to 2.84 on 10/06 and renal functions normalized on 10/07 to Cr 1.12. Mosley catheter was removed on 10/06 and pt urinating without difficulty. Pts urine culture did not gown out anything during that admission. - Pt reports after returning home he had increased UOP and frequency and was urinating "every 10 minutes." He states that he started having dysuria last night and chills. - He had a noted fever of 100.3 in the ED - Pts UA was abnormal with urine culture is growing E. coli - Blood cultures growing E. coli, Pleomorphic gram positive rods and Leticia Epi - Pt was given a dose of Rocephin and Zosyn in the ED and was continued on the Zosyn - His WBC count is elevated to 18.8 at admission and repeat labs today WBC count went up to 38 - Repeat labs on 10/11/17 with improvement in WBC count to 16.1 - Appreciate ID Consult - Repeat blood cultures on 10/11 --> pending - If pt has any diarrhea, send stool for C. diff. - Pt does not want to continue Flomax and is refusing this - Monitor labs - Supportive care SOB Hypoxia Untreated DL - During his recent admission pt had increased O2 requirements and reported a dry cough. - CXR (10/06) --> Cardiomegaly. Pt has hx of DL and refused to use CPAP at home. Pt was noncompliant with using the simple mask during this hospitalization as well according to the nursing staff. - Prior to discharge on 10/07 pt was saturating well with O2 sats in the mid to high 90s on RA while sitting up out of bed and was ambulating in the halls without difficulty - Pt reported after going home be started feeling more SOB than his baseline respiratory status - Pt currently on 2L NC and saturating well. - No complaints of cough, congestion, or SOB currently. - CXR on 10/09 with chronic moderate cardiac silhouette enlargement, no acute cardiopulmonary disease identified. - 2D echo is pending New lung nodule noted on left lung base - Pt will need outpatient CT Chest scan, recommended for 3 month followup, to be ordered by PCP Right renal cyst - Pt had an enlarging right renal cyst noted on CT Abd/pelvis during last admission. - Pt will need followup with Urology for outpatient MRI of the abdomen to better characterize right renal cyst. HTN - Pt had been continued Norvasc and Lisinopril, with parameters on the Lisinopril - Hold his home dose of Maxzide for now - Hold Lisinopril as Cr increased to 1.40 today - Monitor BP and renal function closely Hyperlipidemia - Continue patient's home atorvastatin Diabetes mellitus - Cont. Metformin. - Monitor renal function Anxiety/depression - Continue patient's home sertraline 50 mg PO daily and Buspirone 15 mg daily (2) Leukocytosis ICD Codes: D72.829 - Elevated white blood cell count, unspecified Status: Acute (3) Fever ICD Codes: R50.9 - Fever, unspecified Status: Acute (4) Ureteral calculus, right ICD Codes: N20.1 - Calculus of ureter (5) Diabetes mellitus ICD Codes: E11.9 - Type 2 diabetes mellitus without complications Status: Chronic (6) HTN (hypertension) ICD Codes: I10 - Essential (primary) hypertension Status: Chronic (7) Hyperlipidemia ICD Codes: E78.5 - Hyperlipidemia, unspecified Status: Chronic Problem Qualifiers (1) UTI (urinary tract infection): Qualified Codes: N39.0 - Urinary tract infection, site not specified; R31.9 - Hematuria, unspecified (2) Diabetes mellitus: Julio Fitch DO Oct 12, 2017 12:56
--- NOTE | 2017-10-12 13:12 | HHI.IDPN ---
Note Infectious Disease Note Patient feels okay. Sitting up in chair. Denies chills. Denies nausea vomiting. White blood cell count improved. Repeat blood cultures pending. Post placement of a ureteral stent on 10/05/2017 at the right ureteral system. The patient was discharged from the hospital on 10/07/2017. After discharge, he was having frequent urination and developed shortness of breath and presented to the emergency department. PAST MEDICAL HISTORY: Hypertension, diabetes mellitus, hyperlipidemia, gastroesophageal reflux disease, benign prostatic hypertrophy, left nephrectomy in 1994 for treatment of renal cancer, marii-en-Y gastric bypass surgery, cholecystectomy, history of back surgery, history of knee replacements. ALLERGIES: DAPTOMYCIN, DIVALPROEX SODIUM. MEDICATIONS: Current Medications Medications (Trade) Dose Ordered Sig/Sully Route PRN Reason Start Time Stop Time Status Last Admin Dose Admin Sodium Chloride (NS Flush) 2 ml UNSCH PRN IVF FLUSH AFTER USING IV ACCESS 10/08/17 23:45 Piperacillin Sod/ Tazobactam Sod 100 ml @ 200 mls/hr Q6H IV 10/09/17 01:30 10/12/17 09:21 Acetaminophen (Tylenol) 650 mg Q4H PRN PO fever or pain 10/09/17 09:00 10/10/17 03:12 Ondansetron HCl (Zofran Inj) 4 mg Q6H PRN IV nausea 10/09/17 09:00 Amlodipine Besylate (Norvasc) 10 mg DAILY PO 10/09/17 10:00 10/12/17 09:21 Atorvastatin Calcium (Lipitor) 40 mg HS PO 10/09/17 21:00 10/11/17 21:03 Buspirone HCl (Buspar) 15 mg BID PO 10/09/17 10:00 10/12/17 09:21 Ferrous Sulfate (Ferrous Sulfate) 325 mg DAILY PO 10/09/17 10:00 10/12/17 09:21 Metformin HCl (Glucophage) 500 mg BIDPC PO 10/09/17 10:00 10/12/17 09:21 Multivitamins (Theragran) 1 tab DAILY PO 10/09/17 10:00 10/12/17 09:22 Sertraline HCl (Zoloft) 50 mg DAILY PO 10/09/17 10:00 10/12/17 09:22 Temazepam (Restoril) 7.5 mg HS PRN PO INSOMNIA 10/09/17 10:00 10/09/17 20:21 Lisinopril (Prinivil) 40 mg DAILY PO 10/09/17 10:00 Future Hold 10/11/17 09:05 Famotidine (Pepcid) 20 mg BID PO 10/09/17 10:00 10/12/17 09:21 Trazodone HCl (Desyrel) 100 mg HS PO 10/09/17 21:00 10/11/17 21:03 Witch Mercedez/ Glycerin (Tucks Pads) 1 applic UNSCH PRN TOPICAL HEMORRHOIDS 10/10/17 16:15 10/10/17 21:12 Benzonatate (Tessalon) 200 mg TID PRN PO cough 10/11/17 16:30 10/11/17 21:02 Guaifenesin/ Codeine Phosphate (Robitussin Ac 200-20 Mg/10 ml Liq) 10 ml Q4H PRN PO COUGH 10/12/17 01:45 10/12/17 09:26 SOCIAL HISTORY: The patient is . No tobacco, no alcohol, no illicit drugs. He is a former smoker. OBJECTIVE: Vital Signs Date Time Temp Pulse Resp B/P (MAP) Pulse Ox O2 Delivery O2 Flow Rate FiO2 10/12/17 08:00 Nasal Cannula 2.00 10/12/17 04:00 97.9 63 18 138/83 (101) 95 10/12/17 00:00 97.5 58 18 104/60 (75) 95 10/11/17 20:00 97.9 69 18 121/82 (95) 93 10/11/17 16:00 97.3 63 20 137/80 (99) 95 10/11/17 16:00 97.3 63 20 138/80 (99) 95 Laboratory Tests Test 10/11/17 05:00 10/12/17 05:25 White Blood Count 16.1 TH/MM3 8.8 TH/MM3 Red Blood Count 4.52 MIL/MM3 4.71 MIL/MM3 Hemoglobin 11.8 GM/DL 12.5 GM/DL Hematocrit 36.4 % 38.2 % Mean Corpuscular Volume 80.6 FL 81.1 FL Mean Corpuscular Hemoglobin 26.2 PG 26.5 PG Mean Corpuscular Hemoglobin Concent 32.5 % 32.6 % Red Cell Distribution Width 16.9 % 16.7 % Platelet Count 168 TH/MM3 185 TH/MM3 Mean Platelet Volume 8.2 FL 8.4 FL Neutrophils (%) (Auto) 79.2 % 66.9 % Lymphocytes (%) (Auto) 10.7 % 18.0 % Monocytes (%) (Auto) 6.6 % 9.4 % Eosinophils (%) (Auto) 2.6 % 4.7 % Basophils (%) (Auto) 0.9 % 1.0 % Neutrophils # (Auto) 12.7 TH/MM3 5.9 TH/MM3 Lymphocytes # (Auto) 1.7 TH/MM3 1.6 TH/MM3 Monocytes # (Auto) 1.1 TH/MM3 0.8 TH/MM3 Eosinophils # (Auto) 0.4 TH/MM3 0.4 TH/MM3 Basophils # (Auto) 0.2 TH/MM3 0.1 TH/MM3 CBC Comment DIFF FINAL DIFF FINAL Differential Comment Laboratory Tests Test 10/11/17 05:00 10/12/17 05:25 Blood Urea Nitrogen 21 MG/DL 17 MG/DL Creatinine 1.40 MG/DL 1.30 MG/DL Random Glucose 91 MG/DL 86 MG/DL Calcium Level 8.2 MG/DL 8.5 MG/DL Magnesium Level 1.8 MG/DL 1.8 MG/DL Sodium Level 143 MEQ/L 144 MEQ/L Potassium Level 3.4 MEQ/L 3.5 MEQ/L Chloride Level 110 MEQ/L 108 MEQ/L Carbon Dioxide Level 27.3 MEQ/L 28.4 MEQ/L Anion Gap 6 MEQ/L 8 MEQ/L Estimat Glomerular Filtration Rate 51 ML/MIN 56 ML/MIN Microbiology Date/Time Source Procedure Growth Status 10/11/17 15:43 Blood Peripheral Aerobic Blood Culture - Preliminary NO GROWTH IN 1 DAY Resulted 10/11/17 15:43 Blood Peripheral Anaerobic Blood Culture - Preliminary NO GROWTH IN 1 DAY Resulted 10/11/17 15:38 Blood Peripheral Aerobic Blood Culture - Preliminary NO GROWTH IN 1 DAY Resulted 10/11/17 15:38 Blood Peripheral Anaerobic Blood Culture - Preliminary NO GROWTH IN 1 DAY Resulted Imaging: Chest X-Ray 10/08/17 0531 Signed Impressions: Service Date/Time: Sunday, October 08, 2017 23:52 - CONCLUSION: 1. Chronic moderate cardiac silhouette enlargement. 2. No acute cardiomegaly disease identified. Andrés Bermudez MD OBJECTIVE: PHYSICAL EXAMINATION: GENERAL: no acute distress. Awake and alert. HEENT: Head, atraumatic. Extraocular movements grossly intact. Pupils reactive to light. No icterus. Oropharynx, moist mucosa. No lesions. NECK: Supple without adenopathy. LUNGS: Clear breath sounds bilaterally. HEART: Regular S1, S2. No murmurs, no rubs, no gallops. ABDOMEN: Bowel sounds present, obese, soft. No tenderness appreciated. EXTREMITIES: No clubbing or cyanosis. The patient has a band of mild erythema along the right mid tibia. SKIN: No rash. NEUROLOGIC: No gross focal finding. PSYCHIATRIC: Calm and cooperative. IMPRESSIONS: 1. Urinary tract infection complicated by a urinary stent. E. coli. 2. Marked leukocytosis. Improved. 3. Positive blood culture with mixed bacteria including gram-negative evelyn and gram-positive cocci. However E. coli is included in the bacteria is recovered. 4. Acute kidney disease in a patient with a history of solitary kidney probably secondary to dehydration. RECOMMENDATIONS: 1. Discontinue vancomycin. I think the blood culture is likely contamination. 2. Continue piperacillin/tazobactam and follow the blood culture. If the blood culture is negative tomorrow the patient can be switched to oral Augmentin and continue the treatment to complete 14 days. I would treat with this longer course Because of the indwelling stent. Geraldo Bell MD Oct 12, 2017 13:12
[2017-10-12 16:00] VITALS: BP 144/84; PULSE 66; RESP 20; TEMP 97.9; O2SAT 95
--- NOTE | 2017-10-12 17:06 | PD.VS.CON ---
History of Present Illness Chief Complaint: R LE ulceration Consult Requested by: Dr. Fitch, medical service History of Present Illness 62 yo male with multiple medical problems and 3 years of R LE wound and anterior knee wound. Leg has been swollen since R TKA but no DVT according to the patient. In hospital for urine cultured after obstructing stone (solitary kidney). Past/Family/Social History Past Medical History DM XOL Morbid obesity renal cell CA GERD BPH depression renal calculi Past Surgical History gastric bypass (400# to 220# but now up over 300, bypass was in 1994) nephrectomy R TKA [facility] back surgery Social History nonsmoker Family History NC Home Medications Active Scripts Tamsulosin (Flomax) 0.4 Mg Cap, 0.4 MG PO Q12HR for nephrolithiasis, #62 CAP Prov:Candelaria Arboleda 10/07/17 Reported Medications Ferrous Sulfate (Ferrous Sulfate) 325 Mg (65 Mg Iron) Tablet, 325 MG PO DAILY for Nutritional Supplement, #30 TAB 0 Refills 10/08/17 Trazodone (Trazodone) 100 Mg Tablet, 100 MG PO HS for Control Depression, #30 TAB 0 Refills 10/08/17 Ranitidine (Zantac) 150 Mg Tab, 150 MG PO DAILY for Reduce Stomach Acid, #30 TAB 0 Refills 10/04/17 Temazepam (Restoril) 7.5 Mg Cap, 7.5 MG PO HS Y for INSOMNIA, #30 CAP 0 Refills 10/04/17 Triamterene-Hydrochlorothiazide (Triamterene-Hydrochlorothiazide) 37.5-25 Mg Cap , 1 CAP PO DAILY, #30 CAP 0 Refills 10/04/17 Sertraline (Sertraline) 50 Mg Tab, 50 MG PO DAILY, #30 TAB 0 Refills 10/04/17 Metformin (Metformin) 500 Mg Tab, 500 MG PO BIDPC for Blood Sugar Management, # 60 TAB 0 Refills With meals 06/16/16 Lisinopril (Lisinopril) 40 Mg Tab, 40 MG PO DAILY for Blood Pressure Management , #30 TAB 0 Refills 06/16/16 Buspirone (Buspirone) 15 Mg Tab, 15 MG PO BID for Anxiety, TAB 0 Refills 06/16/16 Atorvastatin (Atorvastatin) 40 Mg Tab, 40 MG PO HS for Cholesterol Management, # 30 TAB 0 Refills 06/16/16 Multiple Vitamin (One Daily) 1 Tab, 1 TAB PO DAILY for Nutritional Supplement, TAB 0 Refills 06/16/16 Amlodipine (Norvasc) 10 Mg Tab, 10 MG PO DAILY for Blood Pressure Management, # 30 TAB 0 Refills 06/16/16 Coded Allergies: divalproex sodium (Verified Allergy, Intermediate, 10/08/17) daptomycin (Unverified Allergy, Unknown, 10/04/17) Uncoded Allergies: deptamycin (Allergy, Severe, 05/30/11) Review of Systems Musculoskeletal: COMPLAINS OF: Joint pain, Stiffness, Joint Swelling, Back pain Physical Exam Vitals/I&O Date Time Temp Pulse Resp B/P (MAP) Pulse Ox O2 Delivery O2 Flow Rate FiO2 10/12/17 13:37 Room Air 10/12/17 08:00 Nasal Cannula 2.00 10/12/17 04:00 97.9 63 18 138/83 (101) 95 10/12/17 00:00 97.5 58 18 104/60 (75) 95 10/11/17 20:00 97.9 69 18 121/82 (95) 93 10/12/17 10/12/17 10/12/17 07:00 15:00 23:00 Intake Total 340 ml Balance 340 ml Neuro: pleasant, conversant HEENT: NC/AT; anicteric sclera Neck: no JVD Heart: reg rate Lungs: nonlabored breathing Abdomen: obese, nontender Vascular: palpable DP 2+ Extremities: R LE with venous stasis changes distal calf and superficial wound overlying anterior knee incision. no odor Laboratory Tests Test 10/12/17 05:25 White Blood Count 8.8 Red Blood Count 4.71 Hemoglobin 12.5 Hematocrit 38.2 Mean Corpuscular Volume 81.1 Mean Corpuscular Hemoglobin 26.5 Mean Corpuscular Hemoglobin Concent 32.6 Red Cell Distribution Width 16.7 Platelet Count 185 Mean Platelet Volume 8.4 Neutrophils (%) (Auto) 66.9 Lymphocytes (%) (Auto) 18.0 Monocytes (%) (Auto) 9.4 Eosinophils (%) (Auto) 4.7 Basophils (%) (Auto) 1.0 Neutrophils # (Auto) 5.9 Lymphocytes # (Auto) 1.6 Monocytes # (Auto) 0.8 Eosinophils # (Auto) 0.4 Basophils # (Auto) 0.1 CBC Comment DIFF FINAL Differential Comment Blood Urea Nitrogen 17 Creatinine 1.30 Random Glucose 86 Calcium Level 8.5 Magnesium Level 1.8 Sodium Level 144 Potassium Level 3.5 Chloride Level 108 Carbon Dioxide Level 28.4 Anion Gap 8 Estimat Glomerular Filtration Rate 56 Date/Time Source Procedure Growth Status 10/11/17 15:43 Blood Peripheral Aerobic Blood Culture - Preliminary NO GROWTH IN 1 DAY Resulted 10/11/17 15:43 Blood Peripheral Anaerobic Blood Culture - Preliminary NO GROWTH IN 1 DAY Resulted 10/09/17 00:20 Urine Clean Catch Urine Culture - Final Escherichia Coli Complete Assessment and Plan Plan Slow wound healing likely secondary to venous stasis. Has tried compression in past without relief. 1. Wound care as you are doing 2. Compression (ANDREAS WRAP) toes to thigh 3. RTC for venous insufficiency studies - I will make appointment Daniel Maravilla MD FACS RPVI FACS linotype machinist apprentice [facility] - Heart and Vascular Surgery at [facility] [phone] Daniel Maravilla MD Oct 12, 2017 17:06
--- NOTE | 2017-10-12 18:31 | ECHRPT ---
Indication: Shortness of breath CONCLUSIONS The left ventricular systolic function is normal with an estimated ejection fraction in the range of 55-60%. Wall thickness is normal. Normal left ventricular size. BP: 121 / 56 HR: 85 Rhythm: Sinus MEASUREMENTS (Male / Female) Normal Values Technical Quality:Fair 2D ECHO LV Diastolic Diameter PLAX 5.3 cm 4.2 - 5.9 / 3.9 - 5.3 cm LV Systolic Diameter PLAX 4.0 cm IVS Diastolic Thickness 1.2 cm 0.6 - 1.0 / 0.6 - 0.9 cm LVPW Diastolic Thickness 1.1 cm 0.6 - 1.0 / 0.6 - 0.9 cm LV Relative Wall Thickness 0.4 LVOT Diameter 2.9 cm DOPPLER AV Peak Velocity 133.0 cm/s AV Peak Gradient 7.1 mmHg LVOT Peak Velocity 98.2 cm/s LVOT Peak Gradient 3.9 mmHg AV Area Cont Eq pk 4.9 cm Mitral E Point Velocity 73.5 cm/s Mitral A Point Velocity 53.8 cm/s Mitral E to A Ratio 1.4 LV E' Lateral Velocity 13.2 cm/s Mitral E to LV E' Lateral Ratio 5.6 LV E' Septal Velocity 8.3 cm/s Mitral E to LV E' Septal Ratio 8.9 PV Peak Velocity 106.0 cm/s PV Peak Gradient 4.5 mmHg FINDINGS LEFT VENTRICLE The left ventricular systolic function is normal with an estimated ejection fraction in the range of 55-60%. Wall thickness is normal. Normal left ventricular size. RIGHT VENTRICLE Normal right ventricular size and systolic function. LEFT ATRIUM The left atrial size is normal. RIGHT ATRIUM The right atrial size is normal. ATRIAL SEPTUM Normal atrial septal thickness without atrial level shunting by limited color doppler interrogation. AORTA The aortic root and proximal ascending aorta are normal in size on limited imaging. MITRAL VALVE Structurally normal mitral valve. No mitral valve stenosis or regurgitation. AORTIC VALVE Trileaflet aortic valve. No aortic valve stenosis or regurgitation. TRICUSPID VALVE Structurally normal tricuspid valve. No tricuspid valve stenosis or regurgitation. PULMONARY VALVE The pulmonary valve is not well visualized. VESSELS The inferior vena cava is normal in size. PERICARDIUM No pericardial effusion. Michele Mccallum MD, FACC, [facility] (Electronically Signed) Final Date:12 October 2017 18:30
[2017-10-12 20:00] VITALS: BP 137/81; PULSE 73; RESP 18; TEMP 98.1; O2SAT 94
[2017-10-12] MEDS: BENZONATATE 100 MG CAP PO PRN (20:36)
[2017-10-12] MEDS: ATORVASTATIN 40 MG TAB PO SCH (20:36)
[2017-10-12] MEDS: traZODone HCL 100 MG TAB PO SCH (20:36)
[2017-10-13] VITALS: BP 145/83; PULSE 62; RESP 18; TEMP 98.2; O2SAT 95
[2017-10-13] MEDS: guaiFENesin/CODEINE SYRUP 200 MG/20 MG/10 ML CUP PO PRN ×2 (00:55→11:08)
[2017-10-13] MEDS: PIPERACIL-TAZO 4.5 GM PREMIX 100 ML IV SCH ×4 (00:57→20:45)
[2017-10-13 04:00] VITALS: BP 151/91; PULSE 60; RESP 17; TEMP 97.9; O2SAT 92
[2017-10-13 08:00] VITALS: BP 148/82; PULSE 64; RESP 19; TEMP 98; O2SAT 95
[2017-10-13] MEDS: metFORMIN HCL 500 MG TAB PO SCH ×2 (08:41→17:20)
[2017-10-13] MEDS: SERTRALINE HCL 50 MG TAB PO SCH (08:41)
[2017-10-13] MEDS: FERROUS SULFATE 325 MG (65 MG ELEMENTAL IRON) TAB PO SCH (08:41)
[2017-10-13] MEDS: MULTIVITAMIN TAB PO SCH (08:41)
[2017-10-13] MEDS: FAMOTIDINE 20 MG TAB PO SCH ×2 (08:41→20:45)
[2017-10-13] MEDS: busPIRone HCL 5 MG TAB PO SCH ×2 (09:39→20:45)
[2017-10-13 12:00] VITALS: BP 133/76; PULSE 63; RESP 18; TEMP 97.5; O2SAT 92
[2017-10-13] MEDS ORDERED: AUGM875T3 PO (12:13)
--- NOTE | 2017-10-13 12:23 | HHI.DS ---
Discharge Summary Admission Date Oct 09, 2017 at 01:32 Discharge Date: Oct 14, 2017 Admitting Diagnosis Sepsis, UTI (1) UTI (urinary tract infection) Diagnosis: Principal ICD Codes: N39.0 - Urinary tract infection, site not specified Status: Acute (2) Leukocytosis Diagnosis: Principal ICD Codes: D72.829 - Elevated white blood cell count, unspecified Status: Acute (3) Fever Diagnosis: Principal ICD Codes: R50.9 - Fever, unspecified Status: Acute (4) Ureteral calculus, right Diagnosis: Secondary ICD Codes: N20.1 - Calculus of ureter (5) Diabetes mellitus Diagnosis: Secondary ICD Codes: E11.9 - Type 2 diabetes mellitus without complications Status: Chronic (6) HTN (hypertension) Diagnosis: Secondary ICD Codes: I10 - Essential (primary) hypertension Status: Chronic (7) Hyperlipidemia ICD Codes: E78.5 - Hyperlipidemia, unspecified Status: Chronic Consultants Dr. Bell, ID Dr. Maravilla, Vascular surgery Brief History Mr. Reynolds is a 62 y/o male with HTN, hyperlipidemia, DM, depression/ anxiety, GERD, BPH, Left nephrectomy 1994 due to renal Ca. Pt was just discharged on 10/07/17 after an admission for obstructing right renal calculus and acute renal failure. During that admission he had a CT abdomen/pelvis () which noted s/p left nephrectomy, 9 mm calcified calculus in the Right UPJ with associated mild to moderate right sided hydronephrosis, 3 mm calyceal calculus in the inferior pole of the right kidney, a new 7 mm solid subpleural nodule in the left lung base and a enlarging cystic lesion in the mid right kidney. Urology was consulted. His renal function worsened on repeat labs on 10/05 with Cr 3.59. Pt underwent Cystoscopy with right retrograde pyelogram and right ureteral stent placement on 10/05/[address] Narvaez. Renal functions normalized on 10/07 to Cr 1.12. Mosley catheter was removed on 10/06 and pt urinated without difficulty. Pts urine culture did not gown out anything during that admission. Pt reports after returning home he had increased UOP and frequency and was urinating "every 10 minutes." He states that he started having dysuria last night with chills. This prompted his arrival to the ED on 10/08/17 for further evaluation. He had a noted fever of 100.3 in the ED. Pts UA was abnormal with large amount of leuk esterase and many bacteria. His WBC count is elevated to 18.8 at admission. Blood cultures were drawn and pt was given a dose of Rocephin and Zosyn in the ED. Pt does not want to continue Flomax and is refusing this. During his recent admission pt had increased O2 requirements and reported a dry cough. CXR (10/06) noted cardiomegaly. Pt has hx of DL and refused to use CPAP at home. Pt was noncompliant with using the simple mask during this hospitalization as well according to the nursing staff. Prior to discharge on 10/07 pt was saturating well with O2 sats in the mid to high 90s on RA while sitting up out of bed and was ambulating in the halls without difficulty. Pt reported after going home be started feeling more SOB than his baseline respiratory status. He states that the cough resolved and is no longer an issue. Pt currently on 2L NC and saturating well. CXR on 10/09 with chronic moderate cardiac silhouette enlargement, no acute cardiopulmonary disease identified. CBC/BMP: 10/12/17 0525 10/12/17 0525 Significant Findings Laboratory Tests Test 10/11/17 05:00 10/12/17 05:25 White Blood Count 16.1 TH/MM3 (4.0-11.0) Hemoglobin 11.8 GM/DL (13.0-17.0) 12.5 GM/DL (13.0-17.0) Hematocrit 36.4 % (39.0-51.0) 38.2 % (39.0-51.0) Mean Corpuscular Hemoglobin 26.2 PG (27.0-34.0) 26.5 PG (27.0-34.0) Neutrophils (%) (Auto) 79.2 % (16.0-70.0) Neutrophils # (Auto) 12.7 TH/MM3 (1.8-7.7) Monocytes # (Auto) 1.1 TH/MM3 (0-0.9) Blood Urea Nitrogen 21 MG/DL (7-18) Creatinine 1.40 MG/DL (0.60-1.30) Calcium Level 8.2 MG/DL (8.5-10.1) Potassium Level 3.4 MEQ/L (3.5-5.1) Chloride Level 110 MEQ/L (98-107) 108 MEQ/L (98-107) Estimat Glomerular Filtration Rate 51 ML/MIN (>89) 56 ML/MIN (>89) Monocytes (%) (Auto) 9.4 % (0.0-8.0) Eosinophils (%) (Auto) 4.7 % (0.0-4.0) PE at Discharge GENERAL: This is an obese male patient, in no apparent distress. CARDIO: Regular. RESP: CTA bilaterally. No wheezes, rales, or rhonchi. ABD: +BS, soft, obese, non-tender, nondistended. EXT: Mild bilateral LE edema, chronic. Chronic wound on the right posterior calf , no drainage or erythema Hospital Course UTI Leukocytosis and fever, possible urosepsis Renal calculus Acute renal failure, resolved - Pt is a 62 y/o male with HTN, hyperlipidemia, DM, depression/anxiety, GERD, BPH, Left nephrectomy 1994 due to renal Ca. - Pt was just discharged on 10/07/17 after an admission for obstructing right renal calculus and acute renal failure. CT abdomen/pelvis (10/04/17) --> Left nephrectomy, 9 mm calcified calculus in the Right UPJ with associated mild to moderate right sided hydronephrosis, 3 mm calyceal calculus in the inferior pole of the right kidney, a new 7 mm solid subpleural nodule in the left lung base. Recommend repeat exam in 3 month, and a enlarging cystic lesion in the mid right kidney. Recommend follow up scan/outpatient MRI. Subtle contour abnormality in the inferior pole of the right kidney, probable evolving hematoma left anterior abd wall. Pt received Dilaudid PRN for pain and Flomax 0.4 mg PO Q12H. Urology was consulted. His renal function worsened on repeat labs on 10/05 with Cr 3.59. Pt underwent Cystoscopy with right retrograde pyelogram and right ureteral stent placement on 10/05/[address] Narvaez. Repeat labs on 10/06 with improvement in Cr to 2.84 on 10/06 and renal functions normalized on 10/07 to Cr 1.12. Mosley catheter was removed on 10/06 and pt urinating without difficulty. Pts urine culture did not gown out anything during that admission. - Pt reports after returning home he had increased UOP and frequency and was urinating "every 10 minutes." He states that he started having dysuria last night and chills. - He had a noted fever of 100.3 in the ED - Pts UA was abnormal with urine culture is growing E. coli - Blood cultures growing E. coli, Pleomorphic gram positive rods and Leticia Epi - Pt was given a dose of Rocephin and Zosyn in the ED and was continued on the Zosyn - His WBC count is elevated to 18.8 at admission and repeat labs today WBC count went up to 38 - Repeat labs on 10/11/17 with improvement in WBC count to 16.1 -> (10/13) 8.8 - Appreciate ID Consult, ID felt blood culture was likely a contamination and stopped vancomycin ID also stated If the blood culture is negative tomorrow (10/13/17)the patient can be switched to oral Augmentin and continue the treatment to complete 14 days. I would treat with this longer course because of the indwelling stent. - Repeat blood cultures on 10/11 at 10/14 no growth x 3 days - If pt has any diarrhea, send stool for C. diff. - Pt does not want to continue Flomax and is refusing this - Monitor labs - Supportive care SOB Hypoxia Untreated DL - During his recent admission pt had increased O2 requirements and reported a dry cough. - CXR (10/06) --> Cardiomegaly. Pt has hx of DL and refused to use CPAP at home. Pt was noncompliant with using the simple mask during this hospitalization as well according to the nursing staff. - Prior to discharge on 10/07 pt was saturating well with O2 sats in the mid to high 90s on RA while sitting up out of bed and was ambulating in the halls without difficulty - Pt reported after going home be started feeling more SOB than his baseline respiratory status - Pt currently on 2L NC and saturating well. - No complaints of cough, congestion, or SOB currently. - CXR on 10/09 with chronic moderate cardiac silhouette enlargement, no acute cardiopulmonary disease identified. - 2D echo conclusion: The left ventricular systolic function is normal with an estimated ejection fraction in the range of 55-60%. Wall thickness is normal. Normal left ventricular size. New lung nodule noted on left lung base - Pt will need outpatient CT Chest scan, recommended for 3 month followup, to be ordered by PCP Right renal cyst - Pt had an enlarging right renal cyst noted on CT Abd/pelvis during last admission. - Pt will need followup with Urology for outpatient MRI of the abdomen to better characterize right renal cyst. HTN - Pt had been continued Norvasc and Lisinopril, with parameters on the Lisinopril - Hold his home dose of Maxzide for now - Hold Lisinopril as Cr increased to 1.40 (10/12) -> 1.3 (10/13) - Monitor BP and renal function closely Hyperlipidemia - Continue patient's home atorvastatin Diabetes mellitus - Cont. Metformin. - Monitor renal function Anxiety/depression - Continue patient's home sertraline 50 mg PO daily and Buspirone 15 mg daily Non healing wound Slow wound healing likely secondary to venous stasis. Consult placed to Dr. Maravilla who recommends: continued wound care, Compression (ANDREAS WRAP) toes to thigh and evaluation on outpatient clinic for venous insufficiency studies 10/13 patient reported diarrhea, C diff negative. 10/14 diarrhea decreased will DC patient home Pt Condition on Discharge: Stable Discharge Disposition: Discharge Home Discharge Instructions DIET: Follow Instructions for: Diabetic Diet Activities you can perform: Regular-No Restrictions Follow up Referrals: PCP Follow-up - [address] Bautista Urology - 1 Week with Oscar Narvaez MD Vascular Surgery - 1 Month @ Vascular Surgery with Daniel Maravilla MD New Medications: Amoxicillin-Clavulanate (Augmentin) 875-125 Mg Tab 1 TAB PO BID for Infection for 8 Days, #16 TAB 0 Refills Continued Medications: Amlodipine (Norvasc) 10 Mg Tab 10 MG PO DAILY for Blood Pressure Management, #30 TAB 0 Refills Atorvastatin (Atorvastatin) 40 Mg Tab 40 MG PO HS for Cholesterol Management, #30 TAB 0 Refills Buspirone (Buspirone) 15 Mg Tab 15 MG PO BID for Anxiety, TAB 0 Refills Ferrous Sulfate (Ferrous Sulfate) 325 Mg (65 Mg Iron) Tablet 325 MG PO DAILY for Nutritional Supplement, #30 TAB 0 Refills Metformin (Metformin) 500 Mg Tab 500 MG PO BIDPC for Blood Sugar Management, #60 TAB 0 Refills With meals Multiple Vitamin (One Daily) 1 Tab 1 TAB PO DAILY for Nutritional Supplement, TAB 0 Refills Ranitidine (Zantac) 150 Mg Tab 150 MG PO DAILY for Reduce Stomach Acid, #30 TAB 0 Refills Sertraline (Sertraline) 50 Mg Tab 50 MG PO DAILY, #30 TAB 0 Refills Tamsulosin (Flomax) 0.4 Mg Cap 0.4 MG PO Q12HR for nephrolithiasis, #62 CAP Temazepam (Restoril) 7.5 Mg Cap 7.5 MG PO HS PRN for INSOMNIA, #30 CAP 0 Refills Trazodone (Trazodone) 100 Mg Tablet 100 MG PO HS for Control Depression, #30 TAB 0 Refills Triamterene-Hydrochlorothiazide (Triamterene-Hydrochlorothiazide) 37.5-25 Mg Cap 1 CAP PO DAILY, #30 CAP 0 Refills Discontinued Medications: Lisinopril (Lisinopril) 40 Mg Tab 40 MG PO DAILY for Blood Pressure Management, #30 TAB 0 Refills Additional Information Patient examined. Assessment and plan formulated with Shauna Robles PA-C. I agree with the above. Shauna Robles Oct 13, 2017 12:23 Julio Fitch DO Oct 14, 2017 22:41
--- NOTE | 2017-10-13 12:24 | HHI.DCPOC ---
Discharge Care Plan Diagnosis: (1) UTI (urinary tract infection) (2) Sepsis (3) Venous stasis of lower extremity Goals to Promote Your Health * To prevent worsening of your condition and complications * To maintain your health at the optimal level Directions to Meet Your Goals Take your medications as prescribed Follow your dietary instruction Follow activity as directed Keep your appointments as scheduled Take your immunizations and boosters as scheduled If your symptoms worsen call your PCP, if no PCP go to Urgent Care Center or Emergency Room Smoking is Dangerous to Your Health. Avoid second hand smoke Call the 24-hour hour crisis hotline for domestic abuse at Shauna Robles Oct 13, 2017 12:24 Julio Fitch DO Oct 14, 2017 22:42
--- NOTE | 2017-10-13 15:05 | HHI.PR ---
Subjective Remarks Patient now c/o copious large volume of watery diarrhea Objective Vitals Vital Signs Date Time Temp Pulse Resp B/P (MAP) Pulse Ox O2 Delivery O2 Flow Rate FiO2 10/13/17 13:34 92 Room Air 10/13/17 12:00 97.5 63 18 133/76 (95) 92 10/13/17 09:41 95 Room Air 10/13/17 08:00 98.0 64 19 148/82 (104) 95 10/13/17 04:00 97.9 60 17 151/91 (111) 92 10/13/17 00:00 98.2 62 18 145/83 (103) 95 10/12/17 20:00 98.1 73 18 137/81 (99) 94 10/12/17 20:00 Nasal Cannula 2.00 10/12/17 16:00 97.9 66 20 144/84 (104) 95 Result Diagram: 10/12/17 0525 10/12/17 0525 Other Results Laboratory Tests Test 10/11/17 05:00 10/12/17 05:25 White Blood Count 16.1 TH/MM3 8.8 TH/MM3 Red Blood Count 4.52 MIL/MM3 4.71 MIL/MM3 Hemoglobin 11.8 GM/DL 12.5 GM/DL Hematocrit 36.4 % 38.2 % Mean Corpuscular Volume 80.6 FL 81.1 FL Mean Corpuscular Hemoglobin 26.2 PG 26.5 PG Mean Corpuscular Hemoglobin Concent 32.5 % 32.6 % Red Cell Distribution Width 16.9 % 16.7 % Platelet Count 168 TH/MM3 185 TH/MM3 Mean Platelet Volume 8.2 FL 8.4 FL Neutrophils (%) (Auto) 79.2 % 66.9 % Lymphocytes (%) (Auto) 10.7 % 18.0 % Monocytes (%) (Auto) 6.6 % 9.4 % Eosinophils (%) (Auto) 2.6 % 4.7 % Basophils (%) (Auto) 0.9 % 1.0 % Neutrophils # (Auto) 12.7 TH/MM3 5.9 TH/MM3 Lymphocytes # (Auto) 1.7 TH/MM3 1.6 TH/MM3 Monocytes # (Auto) 1.1 TH/MM3 0.8 TH/MM3 Eosinophils # (Auto) 0.4 TH/MM3 0.4 TH/MM3 Basophils # (Auto) 0.2 TH/MM3 0.1 TH/MM3 CBC Comment DIFF FINAL DIFF FINAL Differential Comment Blood Urea Nitrogen 21 MG/DL 17 MG/DL Creatinine 1.40 MG/DL 1.30 MG/DL Random Glucose 91 MG/DL 86 MG/DL Calcium Level 8.2 MG/DL 8.5 MG/DL Magnesium Level 1.8 MG/DL 1.8 MG/DL Sodium Level 143 MEQ/L 144 MEQ/L Potassium Level 3.4 MEQ/L 3.5 MEQ/L Chloride Level 110 MEQ/L 108 MEQ/L Carbon Dioxide Level 27.3 MEQ/L 28.4 MEQ/L Anion Gap 6 MEQ/L 8 MEQ/L Estimat Glomerular Filtration Rate 51 ML/MIN 56 ML/MIN Random Vancomycin Level LESS THAN 0.8 COMMENT Imaging Last Impressions Chest X-Ray 10/08/17 9152 Signed Impressions: Service Date/Time: Sunday, October 08, 2017 23:52 - CONCLUSION: 1. Chronic moderate cardiac silhouette enlargement. 2. No acute cardiomegaly disease identified. Andrés Bermudez MD Objective Remarks GENERAL: This is an obese male patient, in no apparent distress. CARDIO: Regular. RESP: CTA bilaterally. No wheezes, rales, or rhonchi. ABD: +BS, soft, obese, non-tender, nondistended. EXT: Mild bilateral LE edema, chronic. Chronic wound on the right posterior calf , no drainage or erythema A/P Problem List: (1) UTI (urinary tract infection) ICD Codes: N39.0 - Urinary tract infection, site not specified Status: Acute Plan: UTI Leukocytosis and fever, possible urosepsis Renal calculus Acute renal failure, resolved - Pt is a 62 y/o male with HTN, hyperlipidemia, DM, depression/anxiety, GERD, BPH, Left nephrectomy 1994 due to renal Ca. - Pt was just discharged on 10/07/17 after an admission for obstructing right renal calculus and acute renal failure. CT abdomen/pelvis (10/04/17) --> Left nephrectomy, 9 mm calcified calculus in the Right UPJ with associated mild to moderate right sided hydronephrosis, 3 mm calyceal calculus in the inferior pole of the right kidney, a new 7 mm solid subpleural nodule in the left lung base. Recommend repeat exam in 3 month, and a enlarging cystic lesion in the mid right kidney. Recommend follow up scan/outpatient MRI. Subtle contour abnormality in the inferior pole of the right kidney, probable evolving hematoma left anterior abd wall. Pt received Dilaudid PRN for pain and Flomax 0.4 mg PO Q12H. Urology was consulted. His renal function worsened on repeat labs on 10/05 with Cr 3.59. Pt underwent Cystoscopy with right retrograde pyelogram and right ureteral stent placement on 10/05/[address] Narvaez. Repeat labs on 10/06 with improvement in Cr to 2.84 on 10/06 and renal functions normalized on 10/07 to Cr 1.12. Mosley catheter was removed on 10/06 and pt urinating without difficulty. Pts urine culture did not gown out anything during that admission. - Pt reports after returning home he had increased UOP and frequency and was urinating "every 10 minutes." He states that he started having dysuria last night and chills. - He had a noted fever of 100.3 in the ED - Pts UA was abnormal with urine culture is growing E. coli - Blood cultures growing E. coli, Pleomorphic gram positive rods and Leticia Epi - Pt was given a dose of Rocephin and Zosyn in the ED and was continued on the Zosyn - His WBC count is elevated to 18.8 at admission and repeat labs today WBC count went up to 38 - Repeat labs on 10/11/17 with improvement in WBC count to 16.1 -> (10/13) 8.8 - Appreciate ID Consult, ID felt blood culture was likely a contamination and stopped vancomycin ID also stated If the blood culture is negative tomorrow (10/13/17)the patient can be switched to oral Augmentin and continue the treatment to complete 14 days. I would treat with this longer course because of the indwelling stent. - Repeat blood cultures on 10/11 at 10/13 no growth x 2 days - If pt has any diarrhea, send stool for C. diff. - Pt does not want to continue Flomax and is refusing this - Monitor labs - Supportive care SOB Hypoxia Untreated DL - During his recent admission pt had increased O2 requirements and reported a dry cough. - CXR (10/06) --> Cardiomegaly. Pt has hx of DL and refused to use CPAP at home. Pt was noncompliant with using the simple mask during this hospitalization as well according to the nursing staff. - Prior to discharge on 10/07 pt was saturating well with O2 sats in the mid to high 90s on RA while sitting up out of bed and was ambulating in the halls without difficulty - Pt reported after going home be started feeling more SOB than his baseline respiratory status - Pt currently on 2L NC and saturating well. - No complaints of cough, congestion, or SOB currently. - CXR on 10/09 with chronic moderate cardiac silhouette enlargement, no acute cardiopulmonary disease identified. - 2D echo conclusion: The left ventricular systolic function is normal with an estimated ejection fraction in the range of 55-60%. Wall thickness is normal. Normal left ventricular size. New lung nodule noted on left lung base - Pt will need outpatient CT Chest scan, recommended for 3 month followup, to be ordered by PCP Right renal cyst - Pt had an enlarging right renal cyst noted on CT Abd/pelvis during last admission. - Pt will need followup with Urology for outpatient MRI of the abdomen to better characterize right renal cyst. HTN - Pt had been continued Norvasc and Lisinopril, with parameters on the Lisinopril - Hold his home dose of Maxzide for now - Hold Lisinopril as Cr increased to 1.40 (10/12) -> 1.3 (10/13) - Monitor BP and renal function closely Hyperlipidemia - Continue patient's home atorvastatin Diabetes mellitus - Cont. Metformin. - Monitor renal function Anxiety/depression - Continue patient's home sertraline 50 mg PO daily and Buspirone 15 mg daily Non healing wound Slow wound healing likely secondary to venous stasis. Consult placed to Dr. Maravilla who recommends: continued wound care, Compression (ANDREAS WRAP) toes to thigh and evaluation on outpatient clinic for venous insufficiency studies Diarrhea copious large volume watery diarrhea C diff now CBC now (2) Leukocytosis ICD Codes: D72.829 - Elevated white blood cell count, unspecified Status: Acute (3) Fever ICD Codes: R50.9 - Fever, unspecified Status: Acute (4) Ureteral calculus, right ICD Codes: N20.1 - Calculus of ureter (5) Diabetes mellitus ICD Codes: E11.9 - Type 2 diabetes mellitus without complications Status: Chronic (6) HTN (hypertension) ICD Codes: I10 - Essential (primary) hypertension Status: Chronic (7) Hyperlipidemia ICD Codes: E78.5 - Hyperlipidemia, unspecified Status: Chronic Assessment and Plan Patient examined. Assessment and plan formulated with Shauna Robles PA-C. I agree with the above. Problem Qualifiers (1) UTI (urinary tract infection): Qualified Codes: N39.0 - Urinary tract infection, site not specified; R31.9 - Hematuria, unspecified (2) Diabetes mellitus: Shauna Robles Oct 13, 2017 15:05 Julio Fitch DO Oct 14, 2017 22:40
[2017-10-13 16:00] VITALS: BP 132/74; PULSE 64; RESP 18; TEMP 98.1; O2SAT 96
[2017-10-13 16:24] LABS: AUTOMATED NEUTROPHIL # 6.6 TH/MM3 (1.8-7.7); BASOPHIL # 0.1 TH/MM3 (0-0.2); EOSINOPHIL # 0.6 TH/MM3 (0-0.4); EOSINOPHIL % 5.7 % (0.0-4.0); HEMATOCRIT 39.6 % (39.0-51.0); LYMPH % 17.7 % (9.0-44.0); LYMPHOCYTE # 1.8 TH/MM3 (1.0-4.8); MEAN CELL VOLUME 80.5 FL (80.0-100.0); MEAN CORPUSCULAR HEMOGLOBIN 26.5 PG (27.0-34.0); MEAN CORPUSCULAR HGB CONC 32.9 % (32.0-36.0); MEAN PLATELET VOLUME 8.3 FL (7.0-11.0); MONO % 10.5 % (0.0-8.0); MONOCYTE # 1.1 TH/MM3 (0-0.9); NEUT % 65.1 % (16.0-70.0); PLATELET COUNT 197 TH/MM3 (150-450); RED BLOOD COUNT 4.93 MIL/MM3 (4.50-5.90); RED CELL DISTRIBUTION WIDTH 16.7 % (11.6-17.2); WHITE BLOOD COUNT 10.1 TH/MM3 (4.0-11.0)
[2017-10-13 20:00] VITALS: BP 147/84; PULSE 62; RESP 17; TEMP 97.8; O2SAT 94
[2017-10-13] MEDS: traZODone HCL 100 MG TAB PO SCH (20:44)
[2017-10-13] MEDS: ATORVASTATIN 40 MG TAB PO SCH (20:44)
[2017-10-14] VITALS: BP 176/89; PULSE 65; RESP 17; TEMP 97.9; O2SAT 97
[2017-10-14] MEDS: guaiFENesin/CODEINE SYRUP 200 MG/20 MG/10 ML CUP PO PRN (02:14)
[2017-10-14] MEDS: PIPERACIL-TAZO 4.5 GM PREMIX 100 ML IV SCH ×2 (02:14→08:06)
[2017-10-14 04:30] VITALS: BP 155/91; PULSE 61; RESP 17; TEMP 97.2; O2SAT 95
[2017-10-14 08:00] VITALS: BP 186/92; PULSE 58; RESP 20; TEMP 97.3; O2SAT 95
[2017-10-14] MEDS: FAMOTIDINE 20 MG TAB PO SCH (08:06)
[2017-10-14] MEDS: FERROUS SULFATE 325 MG (65 MG ELEMENTAL IRON) TAB PO SCH (08:07)
[2017-10-14] MEDS: metFORMIN HCL 500 MG TAB PO SCH (08:07)
[2017-10-14] MEDS: busPIRone HCL 5 MG TAB PO SCH (08:07)
[2017-10-14] MEDS: SERTRALINE HCL 50 MG TAB PO SCH (08:07)
[2017-10-14] MEDS: MULTIVITAMIN TAB PO SCH (08:07)
[2017-10-14 11:08] VITALS: BP 137/87; PULSE 61; RESP 20; TEMP 97.5; O2SAT 93
[2017-10-14] MEDS ORDERED: AUGM875T3 PO (12:38)
[2017-10-14] MEDS ORDERED: AMOXICILLIN/CLAVULANATE K 875 MG TAB PO SCH (21:00)
== END 2017-10-14 14:07 | disposition home or self-care (01) | DRG 690 ==
LOC: NEPE 21:27 → INTOOBSV 10-09 01:32 → OBSVTOIN 10-09 01:32 → NEDA 10-09 01:32 → NEPHCDU 10-09 02:14 → N04B 10-10 13:59
PROVIDERS: ADMIT Hospitalist; ATTEND Hospitalist
DX: N39.0 Urinary tract infection, site not specified (principal); I11.9 Hypertensive heart disease without heart failure; Z68.43 Body mass index [BMI] 50.0-59.9, adult; E11.9 Type 2 diabetes mellitus without complications; B96.20 Unspecified Escherichia coli [E. coli] as the cause of diseases classified elsewhere; F32.9 Major depressive disorder, single episode, unspecified; E78.5 Hyperlipidemia, unspecified; E78.00 Pure hypercholesterolemia, unspecified; G47.33 Obstructive sleep apnea (adult) (pediatric); M06.9 Rheumatoid arthritis, unspecified; K21.9 Gastro-esophageal reflux disease without esophagitis; E66.01 Morbid (severe) obesity due to excess calories; N40.0 Benign prostatic hyperplasia without lower urinary tract symptoms; R09.02 Hypoxemia; R91.1 Solitary pulmonary nodule; N28.1 Cyst of kidney, acquired; I87.8 Other specified disorders of veins; R19.7 Diarrhea, unspecified; N20.0 Calculus of kidney; F41.9 Anxiety disorder, unspecified; Z79.84 Long term (current) use of oral hypoglycemic drugs; Z85.528 Personal history of other malignant neoplasm of kidney; Z87.891 Personal history of nicotine dependence; Z88.1 Allergy status to other antibiotic agents; Z90.5 Acquired absence of kidney; Z91.19 Patient's noncompliance with other medical treatment and regimen; Z96.651 Presence of right artificial knee joint; Z98.84 Bariatric surgery status
CPT/HCPCS: 71045; 76937; 80048; 80053; 80202; 81001; 82550; 82948; 83605; 83735; 83880; 84484; 85007; 85025; 85027; 85610; 85730; 87040; 87077; 87086; 87186; 87205; 87493; 93005; 93306; 96365; J0696; J2543; J7030